=== PATIENT | male | born 1965 | race Caucasian/White ===

== ENCOUNTER 2022-05-17 07:10 | Inpatient (IN) | payer OTHER ==
[2022-05-17 07:27] VITALS: BMI 19.5
[2022-05-17] MEDS ORDERED: VANCOMYCIN/WATER 1,250 MG/250 ML BAG (RESTRICTED TO ID ONLY) IVPB ONE (08:01)
[2022-05-17] MEDS ORDERED: VANCOMYCIN/WATER 1250 MG 1,250 MG/250 ML BAG IVPB ONE (08:28)
[2022-05-17 08:44] LABS: BASO % 0.2 % (0-2.0); EOS % 0.9 % (0-4.5); HEMATOCRIT 29.4 % (35.4-49); HEMOGLOBIN 10.3 GM/dL (11.7-16.9); LYMPH % 15.8 % (8-40); MCH 29.2 pg (25.7-33.7); MCHC 35.2 g/dl (32.0-35.9); MEAN CELL VOLUME 83.1 fl (80-96); MEAN PLT VOLUME 7.7 fl (7.5-11.1); MONO % 13.3 % (3.8-10.2); NEUT % 69.8 % (42.8-82.8); PLATELET COUNT 162 10^3/uL (134-434); RBC 3.54 M/mm3 (4.00-5.60); RDW 14.8 % (11.9-15.9); WHITE BLOOD COUNT 4.4 K/mm3 (4.0-10.0)
[2022-05-17 08:46] LABS: INR 1.15 (0.83-1.09); PROTHROMBIN TIME (PATIENT) 13.3 SEC (9.7-13.0)
[2022-05-17 08:53] LABS: ALBUMIN 3.3 g/dl (3.4-5.0); BLOOD UREA NITROGEN 23.8 mg/dL (7-18); CALCIUM 9.2 mg/dL (8.5-10.1)
[2022-05-17 08:56] LABS: CREATININE 1.2 mg/dL (0.55-1.3)
[2022-05-17 08:58] LABS: BILIRUBIN,TOTAL 0.6 mg/dL (0.2-1); TOT PROT 8.3 g/dl (6.4-8.2)
[2022-05-17] MEDS ORDERED: CLINDAMYCIN 600MG PREMIX IVPB 600 MG/50 ML BAG IVPB ONE ×2 (09:37→10:50)
[2022-05-17] MEDS ORDERED: SODIUM CHLORIDE 1,000 ML IV SCH ×2 (12:30→18:30)
[2022-05-17 15:15] LABS: URINE APPEARANCE CLEAR; URINE COLOR YELLOW
[2022-05-17 15:16] LABS: PH,URINE 5.5 (5.0-8.0); URINE BILIRUBIN NEGATIVE (NEGATIVE); URINE GLUCOSE (UA) NEGATIVE (NEGATIVE); URINE KETONE NEGATIVE (NEGATIVE); URINE LEUK ESTERASE NEGATIVE (NEGATIVE); URINE NITRITE NEGATIVE (NEGATIVE); URINE PROTEIN NEGATIVE (NEGATIVE); URINE UROBILINOGEN 0.2 mg/dL (0.2-1.0)
[2022-05-17] MEDS: CEFAZOLIN 1 GM in DEXTROSE 5%-WATER - 50 ML IVPB SCH (17:32)
[2022-05-17] MEDS: GABAPENTIN 100 MG CAPSULE PO SCH ×2 (17:52→22:17)
[2022-05-17] MEDS: ENOXAPARIN NA (PORCINE) 40 MG/0.4 ML DISP.SYRIN SQ SCH (17:53)
[2022-05-17] MEDS ORDERED: ACETAMINOPHEN 1000 MG/100 ML BAG IVPB PRN (18:28)
[2022-05-17] MEDS ORDERED: oxyCODONE HCL 5 MG TABLET PO PRN (18:41)
[2022-05-17] MEDS ORDERED: MELATONIN 1 MG TABLET PO SCH (22:00)
[2022-05-17] MEDS ORDERED: TAMSULOSIN HCL 0.4 MG CAP PO SCH (22:00)
[2022-05-18] MEDS: CEFAZOLIN 1 GM in DEXTROSE 5%-WATER - 50 ML IVPB SCH ×2 (02:24→09:25)
[2022-05-18] MEDS: ENOXAPARIN NA (PORCINE) 40 MG/0.4 ML DISP.SYRIN SQ SCH (09:25)
[2022-05-18] MEDS: GABAPENTIN 100 MG CAPSULE PO SCH (09:26)
[2022-05-18] MEDS: ALBUTEROL SO4 HFA INHALER IH SCH ×3 (09:39→13:21)
[2022-05-18] MEDS ORDERED: ARIPiprazole 10 MG TABLET PO SCH (10:00)
[2022-05-18 10:13] VITALS: RESP 18
[2022-05-18 10:17] LABS: BASO % 0.3 % (0-2.0); EOS % 1.2 % (0-4.5); HEMATOCRIT 28.2 % (35.4-49); LYMPH % 16.7 % (8-40); MCH 28.9 pg (25.7-33.7); MCHC 35.4 g/dl (32.0-35.9); MEAN CELL VOLUME 81.7 fl (80-96); MEAN PLT VOLUME 8.4 fl (7.5-11.1); MONO % 12.2 % (3.8-10.2); NEUT % 69.6 % (42.8-82.8); PLATELET COUNT 143 10^3/uL (134-434); RBC 3.45 M/mm3 (4.00-5.60); RDW 14.4 % (11.9-15.9); WHITE BLOOD COUNT 3.3 K/mm3 (4.0-10.0)
[2022-05-18 10:35] LABS: BLOOD UREA NITROGEN 17.2 mg/dL (7-18); CALCIUM 8.6 mg/dL (8.5-10.1)
[2022-05-18 10:36] LABS: ALBUMIN 2.8 g/dl (3.4-5.0); MAGNESIUM 1.9 mg/dL (1.8-2.4)
[2022-05-18 10:39] LABS: CREATININE 1.1 mg/dL (0.55-1.3)
[2022-05-18 10:40] LABS: TOT PROT 7.6 g/dl (6.4-8.2)
[2022-05-18 10:41] LABS: BILIRUBIN,TOTAL 0.5 mg/dL (0.2-1)
[2022-05-18 10:43] LABS: PHOSPHOROUS 2.8 mg/dL (2.5-4.9)
[2022-05-18] MEDS ORDERED: busPIRone HCL 5 MG TABLET PO SCH (14:00)
[2022-05-18 14:58] VITALS: BP 92/60; PULSE 58; TEMP 98.1
[2022-05-18] MEDS ORDERED: traZODone HCL 50 MG TABLET (FP) PO SCH (22:00)
== END 2022-05-18 15:05 | disposition left against medical advice (07) | DRG 383 ==
LOC: JER 07:10 → JERBED 12:16 → INTOOBSV 12:16 → UNDOADMOB 12:16 → JERBED 12:26 → J5S 17:06 → OBSVTOIN 05-18 14:39
PROVIDERS: ADMIT Internal Medicine; ATTEND Nurse Practitioner Family
DX: L03.115 Cellulitis of right lower limb (principal); F17.210 Nicotine dependence, cigarettes, uncomplicated; F11.20 Opioid dependence, uncomplicated; M79.661 Pain in right lower leg; R63.0 Anorexia; Z68.1 Body mass index [BMI] 19.9 or less, adult
CPT/HCPCS: 36415; 71045-TC-FY; 73590-TC-RT-FY; 73701-TC-RT; 80053; 81003; 82550; 82962; 83036; 83735; 84100; 85025; 85610; 87040; 87086; 93005; 93010; 93970-TC; 99285-25; C9803-CS; G0378; Q9967; U0003; U0005

== ENCOUNTER 2022-05-24 16:01 | Inpatient (IN) | payer OTHER ==
[2022-05-24] MEDS ORDERED: ACETAMINOPHEN 1000 MG/100 ML BAG IVPB ONE (18:25)
[2022-05-24] MEDS ORDERED: KETOROLAC TROMETHAMINE 15 MG/ML VIAL IVPUSH ONE (18:25)
[2022-05-24] MEDS ORDERED: ceFAZolin 2 GRAM PREMIX BAG IVPB ONE (18:27)
[2022-05-24] MEDS ORDERED: ACETAMINOPHEN INJECTION 100 ML IVPB ONE (18:34)
[2022-05-24] MEDS ORDERED: KETOROLAC TROMETHAMINE 15 MG/ML VIAL ONE (18:35)
[2022-05-24] MEDS ORDERED: ceFAZolin SODIUM 1 GM VIAL ONE (18:35)
[2022-05-24 19:06] LABS: BASO % 0.4 % (0-2.0); EOS % 4.4 % (0-4.5); HEMOGLOBIN 10.4 GM/dL (11.7-16.9); LYMPH % 24.7 % (8-40); MCH 28.4 pg (25.7-33.7); MCHC 34.6 g/dl (32.0-35.9); MEAN PLT VOLUME 7.6 fl (7.5-11.1); MONO % 13.4 % (3.8-10.2); NEUT % 57.1 % (42.8-82.8); PLATELET COUNT 178 10^3/uL (134-434); RBC 3.66 M/mm3 (4.00-5.60); RDW 14.1 % (11.9-15.9); WHITE BLOOD COUNT 3.2 K/mm3 (4.0-10.0)
[2022-05-24 19:27] LABS: CALCIUM 9.3 mg/dL (8.5-10.1)
[2022-05-24 19:28] LABS: ALBUMIN 3.2 g/dl (3.4-5.0); BLOOD UREA NITROGEN 15.2 mg/dL (7-18)
[2022-05-24 19:33] LABS: BILIRUBIN,TOTAL 0.4 mg/dL (0.2-1); TOT PROT 8.5 g/dl (6.4-8.2)
[2022-05-25] MEDS ORDERED: traZODone HCL 100 MG TABLET (FP) PO ONE (00:44)
[2022-05-25] MEDS ORDERED: GABAPENTIN 100 MG CAPSULE PO ONE (00:50)
[2022-05-25] MEDS ORDERED: MELATONIN 1 MG TABLET PO PRN (01:01)
[2022-05-25] MEDS ORDERED: ALBUTEROL SO4 HFA INHALER IH ONE (02:14)
[2022-05-25] MEDS ORDERED: ACETAMINOPHEN 1000 MG/100 ML BAG IVPB PRN (02:19)
[2022-05-25] MEDS: ALBUTEROL SO4 HFA INHALER IH SCH ×4 (02:41→17:52)
[2022-05-25] MEDS ORDERED: KETOROLAC TROMETHAMINE 30 MG/1 ML VIAL IVPUSH PRN (03:00)
[2022-05-25] MEDS ORDERED: ceFAZolin SODIUM 1 GM VIAL ONE (03:32)
[2022-05-25] MEDS ORDERED: CEFAZOLIN 1 GM in DEXTROSE 5%-WATER - 50 ML IVPB SCH (04:00)
[2022-05-25] MEDS ORDERED: PATIENT'S OWN MEDICATION (NON-FORMULARY) (Lactose-Reduced Food [Ensure Liquid] 237 ML Liqu PO SCH (06:00)
[2022-05-25 08:50] LABS: BASO % 0.9 % (0-2.0); EOS % 5.6 % (0-4.5); HEMATOCRIT 28.3 % (35.4-49); HEMOGLOBIN 10.1 GM/dL (11.7-16.9); LYMPH % 20.8 % (8-40); MCH 28.9 pg (25.7-33.7); MCHC 35.7 g/dl (32.0-35.9); MEAN CELL VOLUME 81.1 fl (80-96); MEAN PLT VOLUME 8.1 fl (7.5-11.1); MONO % 12.8 % (3.8-10.2); NEUT % 59.9 % (42.8-82.8); PLATELET COUNT 156 10^3/uL (134-434); RBC 3.49 M/mm3 (4.00-5.60); RDW 14.1 % (11.9-15.9); WHITE BLOOD COUNT 2.4 K/mm3 (4.0-10.0)
[2022-05-25] MEDS: DOCUSATE SODIUM 100 MG CAPSULE (FP) PO PRN (09:00)
[2022-05-25] MEDS: busPIRone HCL 10 MG TABLET (FP) PO SCH ×3 (09:00→22:45)
[2022-05-25 09:26] LABS: BLOOD UREA NITROGEN 17.4 mg/dL (7-18); CALCIUM 9.1 mg/dL (8.5-10.1); MAGNESIUM 2.1 mg/dL (1.8-2.4)
[2022-05-25 09:27] LABS: PHOSPHOROUS 3.2 mg/dL (2.5-4.9)
[2022-05-25 09:28] LABS: CREATININE 0.9 mg/dL (0.55-1.3)
[2022-05-25] MEDS: ENOXAPARIN NA (PORCINE) 40 MG/0.4 ML DISP.SYRIN SQ SCH (09:44)
[2022-05-25] MEDS: GABAPENTIN 100 MG CAPSULE PO SCH ×2 (09:44→22:45)
[2022-05-25] MEDS ORDERED: PATIENT'S OWN MEDICATION (NON-FORMULARY) (Fluoxetine Hcl [Prozac] 40 MG Capsule) PO SCH (10:00)
[2022-05-25 11:03] VITALS: RESP 18
[2022-05-25] MEDS: CEFAZOLIN 1 GM in DEXTROSE 5%-WATER - 50 ML IVPB SCH ×2 (11:55→17:52)
[2022-05-25] MEDS: ARIPiprazole 10 MG TABLET PO SCH (11:55)
[2022-05-25 16:08] VITALS: BMI 19.8
[2022-05-25] MEDS ORDERED: traZODone HCL 100 MG TABLET (FP) PO SCH (22:00)
[2022-05-25 22:27] LABS: PHENCYCLIDINE,URINE NEGATIVE (NEGATIVE); URINE AMPHETAMINES NEGATIVE (NEGATIVE); URINE BENZODIAZEPINES NEGATIVE (NEGATIVE)
[2022-05-25] MEDS ORDERED: traZODone HCL 50 MG TABLET (FP) ONE (22:42)
[2022-05-25 22:50] LABS: COCAINE, UR POSITIVE (NEGATIVE); METHADONE, UR POSITIVE (NEGATIVE); OPIATES, URI POSITIVE (NEGATIVE); URINE BARBITURATES NEGATIVE (NEGATIVE)
[2022-05-26] MEDS: ALBUTEROL SO4 HFA INHALER IH SCH ×2 (01:52→06:36)
[2022-05-26] MEDS: CEFAZOLIN 1 GM in DEXTROSE 5%-WATER - 50 ML IVPB SCH ×2 (01:52→10:48)
[2022-05-26] MEDS: busPIRone HCL 10 MG TABLET (FP) PO SCH (06:30)
[2022-05-26 08:58] LABS: HEMATOCRIT 30.8 % (35.4-49); HEMOGLOBIN 10.8 GM/dL (11.7-16.9); MEAN CELL VOLUME 81.8 fl (80-96); RBC 3.77 M/mm3 (4.00-5.60)
[2022-05-26 08:59] LABS: BASO % 0.6 % (0-2.0); EOS % 2.3 % (0-4.5); LYMPH % 21.1 % (8-40); MCH 28.5 pg (25.7-33.7); MCHC 34.9 g/dl (32.0-35.9); MEAN PLT VOLUME 7.8 fl (7.5-11.1); MONO % 9.3 % (3.8-10.2); NEUT % 66.7 % (42.8-82.8); PLATELET COUNT 188 10^3/uL (134-434); RDW 14.1 % (11.9-15.9)
[2022-05-26 09:32] LABS: ALBUMIN 2.8 g/dl (3.4-5.0); CALCIUM 8.9 mg/dL (8.5-10.1)
[2022-05-26 09:35] LABS: CREATININE 0.9 mg/dL (0.55-1.3)
[2022-05-26 09:37] LABS: BILIRUBIN,TOTAL 0.4 mg/dL (0.2-1)
[2022-05-26] MEDS: ARIPiprazole 10 MG TABLET PO SCH (10:47)
[2022-05-26] MEDS: ENOXAPARIN NA (PORCINE) 40 MG/0.4 ML DISP.SYRIN SQ SCH (10:48)
[2022-05-26] MEDS: DOCUSATE SODIUM 100 MG CAPSULE (FP) PO PRN (10:48)
[2022-05-26] MEDS: GABAPENTIN 100 MG CAPSULE PO SCH (10:48)
[2022-05-26 11:37] VITALS: BP 116/67; PULSE 58; TEMP 98.3
== END 2022-05-26 13:30 | disposition left against medical advice (07) | DRG 383 ==
LOC: JER 16:01 → JERBED 18:28 → J7W 05-25 07:10
PROVIDERS: ADMIT Internal Medicine; ATTEND Family Medicine
DX: L03.115 Cellulitis of right lower limb (principal); F11.20 Opioid dependence, uncomplicated; M54.50 Low back pain, unspecified; G43.909 Migraine, unspecified, not intractable, without status migrainosus; Z86.718 Personal history of other venous thrombosis and embolism; Z91.51 Personal history of suicidal behavior; F43.10 Post-traumatic stress disorder, unspecified; F41.8 Other specified anxiety disorders; F14.10 Cocaine abuse, uncomplicated; D64.9 Anemia, unspecified; E88.09 Other disorders of plasma-protein metabolism, not elsewhere classified
CPT/HCPCS: 0241U-QW; 36415; 80048; 80053; 80307; 82728; 83540; 83550; 83735; 84100; 84443; 85025; 93005; 93010; 93970-TC; 99285-25

== ENCOUNTER 2022-08-23 13:44 | Inpatient (IN) | payer OTHER ==
[2022-08-23 14:48] VITALS: BMI 18.8
[2022-08-23] MEDS ORDERED: FAMOTIDINE 20 MG TABLET PO PRN (14:59)
[2022-08-23] MEDS ORDERED: ALBUTEROL SO4 HFA INHALER IH PRN (14:59)
[2022-08-23] MEDS ORDERED: PATIENT'S OWN MEDICATION (NON-FORMULARY) (Meloxicam [Meloxicam] 7.5 MG Tablet) PO PRN (14:59)
[2022-08-23] MEDS ORDERED: MAGNESIUM HYDROX 2400MG/30ML ORAL SUSPENSION 30 ML CUP PO PRN (15:19)
[2022-08-23] MEDS ORDERED: COLLOIDAL OATMEAL 1 BAR EACH TP PRN (15:19)
[2022-08-23] MEDS ORDERED: BENZOCAINE/MENTHOL (CHLORASEPTIC ) LOZENGE MM PRN (15:19)
[2022-08-23] MEDS ORDERED: IBUPROFEN 400 MG TABLET (FP) PO PRN (15:19)
[2022-08-23] MEDS ORDERED: NALOXONE HCL 0.4 MG/ML VIAL IM PRN (15:19)
[2022-08-23] MEDS ORDERED: AMMONIUM LACTATE 12% LOTION 225 GM BOTTLE TP PRN (15:19)
[2022-08-23] MEDS ORDERED: NALOXONE HCL (KLOXXADO) 8 MG SPRAY NS PRN (15:19)
[2022-08-23] MEDS ORDERED: P-EPHED 60MG/TRIPROLIDI 2.5MG TABLET PO PRN (15:19)
[2022-08-23] MEDS ORDERED: guaiFENesin 600 MG TABLET.ER (FP) PO PRN (15:19)
[2022-08-23] MEDS ORDERED: POLYETHYLENE GLYCOL (HEALTHYLAX) 3350 17 GM PACKET PO PRN (15:19)
[2022-08-23] MEDS ORDERED: BENZONATATE 200 MG CAPSULE PO PRN (15:19)
[2022-08-23] MEDS: MELATONIN 5 MG TABLETS PO SCH (21:16)
[2022-08-23] MEDS: THIAMINE HCL 100 MG TABLET (FP) PO SCH (21:16)
[2022-08-23] MEDS: TAMSULOSIN HCL 0.4 MG CAP PO SCH (21:17)
[2022-08-23] MEDS: LIDOCAINE PATCH REMOVAL MC SCH (21:17)
[2022-08-23] MEDS: NICOTINE POLACRILEX 2 MG GUM BUC PRN (21:18)
[2022-08-24] MEDS ORDERED: methaDONE HCL 40 MG DISPERSABLE TABLET PO SCH (06:30)
[2022-08-24] MEDS ORDERED: GABAPENTIN 100 MG CAPSULE PO STA (09:10)
[2022-08-24] MEDS: PRENATAL VITAMINS W/ FOLIC ACID TABLET (FP) PO SCH (10:19)
[2022-08-24] MEDS: LIDOCAINE 5% TOPICAL PATCH TP SCH (10:20)
[2022-08-24] MEDS: NICOTINE POLACRILEX 2 MG GUM BUC PRN (10:25)
[2022-08-24] MEDS ORDERED: PNEUMOC 20-VAL CONJ-DIP CRM/PF 0.5 ML SYRINGE IM ONE (11:00)
[2022-08-24 12:32] LABS: HEMATOCRIT 35.8 % (35.4-49); HEMOGLOBIN 11.8 GM/dL (11.7-16.9); MCHC 32.9 g/dl (32.0-35.9); MEAN CELL VOLUME 85.1 fl (80-96); MEAN PLT VOLUME 9.2 fl (7.5-11.1); PLATELET COUNT 146 10^3/uL (134-434); RBC 4.21 M/mm3 (4.00-5.60); RDW 15.1 % (11.9-15.9); WHITE BLOOD COUNT 3.8 K/mm3 (4.0-10.0)
[2022-08-24 12:34] LABS: URINE APPEARANCE CLEAR; URINE BILIRUBIN NEGATIVE (NEGATIVE); URINE COLOR YELLOW; URINE GLUCOSE (UA) NEGATIVE (NEGATIVE); URINE KETONE NEGATIVE (NEGATIVE); URINE LEUK ESTERASE NEGATIVE (NEGATIVE); URINE NITRITE NEGATIVE (NEGATIVE); URINE PROTEIN NEGATIVE (NEGATIVE); URINE UROBILINOGEN 0.2 mg/dL (0.2-1.0)
[2022-08-24 12:45] LABS: POTASSIUM 4.5 mmol/L (3.5-5.1)
[2022-08-24 12:58] LABS: ALBUMIN 3.6 g/dl (3.4-5.0); CALCIUM 10.1 mg/dL (8.5-10.1)
[2022-08-24 12:59] LABS: BLOOD UREA NITROGEN 16.1 mg/dL (7-18)
[2022-08-24 13:01] LABS: CREATININE 1.1 mg/dL (0.55-1.3)
[2022-08-24 13:02] LABS: BILIRUBIN,TOTAL 0.3 mg/dL (0.2-1); TOT PROT 9.1 g/dl (6.4-8.2)
[2022-08-24] MEDS: GABAPENTIN 100 MG CAPSULE PO SCH ×2 (13:45→21:25)
[2022-08-24] MEDS: THIAMINE HCL 100 MG TABLET (FP) PO SCH (21:25)
[2022-08-24] MEDS: TAMSULOSIN HCL 0.4 MG CAP PO SCH (21:25)
[2022-08-24] MEDS: MELATONIN 5 MG TABLETS PO SCH (21:25)
[2022-08-24] MEDS: hydrOXYzine PAMOATE 25 MG CAPSULE (FP) PO PRN (21:26)
[2022-08-24] MEDS: LIDOCAINE PATCH REMOVAL MC SCH (21:26)
[2022-08-25] MEDS: GABAPENTIN 100 MG CAPSULE PO SCH ×3 (05:59→21:15)
[2022-08-25] MEDS: IBUPROFEN 600 MG TABLET (FP) PO PRN (06:54)
[2022-08-25] MEDS: PRENATAL VITAMINS W/ FOLIC ACID TABLET (FP) PO SCH (09:37)
[2022-08-25] MEDS: LIDOCAINE 5% TOPICAL PATCH TP SCH (09:37)
[2022-08-25] MEDS: MELATONIN 5 MG TABLETS PO SCH (21:15)
[2022-08-25] MEDS: THIAMINE HCL 100 MG TABLET (FP) PO SCH (21:15)
[2022-08-25] MEDS: LIDOCAINE PATCH REMOVAL MC SCH (21:15)
[2022-08-25] MEDS: TAMSULOSIN HCL 0.4 MG CAP PO SCH (21:15)
[2022-08-26] MEDS: GABAPENTIN 100 MG CAPSULE PO SCH ×3 (05:47→21:07)
[2022-08-26] MEDS: LIDOCAINE 5% TOPICAL PATCH TP SCH (10:09)
[2022-08-26] MEDS: PRENATAL VITAMINS W/ FOLIC ACID TABLET (FP) PO SCH (10:09)
[2022-08-26] MEDS: IBUPROFEN 600 MG TABLET (FP) PO PRN ×2 (10:58→17:20)
[2022-08-26] MEDS: MELATONIN 5 MG TABLETS PO SCH (21:06)
[2022-08-26] MEDS: THIAMINE HCL 100 MG TABLET (FP) PO SCH (21:06)
[2022-08-26] MEDS: LIDOCAINE PATCH REMOVAL MC SCH (21:07)
[2022-08-26] MEDS: TAMSULOSIN HCL 0.4 MG CAP PO SCH (21:07)
[2022-08-26] MEDS: NICOTINE POLACRILEX 2 MG GUM BUC PRN (21:07)
[2022-08-27] MEDS: GABAPENTIN 100 MG CAPSULE PO SCH ×3 (06:09→21:16)
[2022-08-27] MEDS: LIDOCAINE 5% TOPICAL PATCH TP SCH (09:57)
[2022-08-27] MEDS: PRENATAL VITAMINS W/ FOLIC ACID TABLET (FP) PO SCH (09:57)
[2022-08-27] MEDS: IBUPROFEN 600 MG TABLET (FP) PO PRN (09:58)
[2022-08-27] MEDS: NICOTINE POLACRILEX 2 MG GUM BUC PRN (13:03)
[2022-08-27] MEDS: TAMSULOSIN HCL 0.4 MG CAP PO SCH (21:16)
[2022-08-27] MEDS: THIAMINE HCL 100 MG TABLET (FP) PO SCH (21:16)
[2022-08-27] MEDS: MELATONIN 5 MG TABLETS PO SCH (21:16)
[2022-08-27] MEDS: LIDOCAINE PATCH REMOVAL MC SCH (21:17)
[2022-08-28] MEDS: hydrOXYzine PAMOATE 25 MG CAPSULE (FP) PO PRN ×3 (06:45→21:07)
[2022-08-28] MEDS: GABAPENTIN 100 MG CAPSULE PO SCH ×2 (07:06→13:17)
[2022-08-28] MEDS ORDERED: methaDONE HCL 10 MG TABLET PO SCH (07:15)
[2022-08-28] MEDS: LIDOCAINE 5% TOPICAL PATCH TP SCH (10:10)
[2022-08-28] MEDS: PRENATAL VITAMINS W/ FOLIC ACID TABLET (FP) PO SCH (10:10)
[2022-08-28] MEDS: GABAPENTIN 300 MG CAPSULE PO SCH ×2 (14:30→21:04)
[2022-08-28] MEDS: TAMSULOSIN HCL 0.4 MG CAP PO SCH (21:03)
[2022-08-28] MEDS: THIAMINE HCL 100 MG TABLET (FP) PO SCH (21:04)
[2022-08-28] MEDS: MELATONIN 5 MG TABLETS PO SCH (21:04)
[2022-08-28] MEDS: MAG HYDROX/AL HYDROX/SIMETH 30 ML UNIT-DOSE CUP PO PRN (21:04)
[2022-08-28] MEDS: ACETAMINOPHEN 325 MG TABLET (FP) PO PRN (21:05)
[2022-08-28] MEDS: LIDOCAINE PATCH REMOVAL MC SCH (21:07)
[2022-08-28] MEDS ORDERED: QUEtiapine FUMARATE 50 MG TABLET PO SCH (22:00)
[2022-08-28] MEDS ORDERED: QUEtiapine FUMARATE 50 MG TABLET PO PRN (22:00)
[2022-08-29] MEDS: GABAPENTIN 300 MG CAPSULE PO SCH ×3 (06:14→21:09)
[2022-08-29] MEDS: MAG HYDROX/AL HYDROX/SIMETH 30 ML UNIT-DOSE CUP PO PRN ×3 (06:16→21:10)
[2022-08-29] MEDS: PRENATAL VITAMINS W/ FOLIC ACID TABLET (FP) PO SCH (09:48)
[2022-08-29] MEDS: LIDOCAINE 5% TOPICAL PATCH TP SCH (09:48)
[2022-08-29] MEDS: hydrOXYzine PAMOATE 25 MG CAPSULE (FP) PO PRN (14:09)
[2022-08-29] MEDS: TAMSULOSIN HCL 0.4 MG CAP PO SCH (21:08)
[2022-08-29] MEDS: MELATONIN 5 MG TABLETS PO SCH (21:09)
[2022-08-29] MEDS: THIAMINE HCL 100 MG TABLET (FP) PO SCH (21:09)
[2022-08-29] MEDS: LIDOCAINE PATCH REMOVAL MC SCH (21:10)
[2022-08-30] MEDS: GABAPENTIN 300 MG CAPSULE PO SCH ×3 (06:21→21:01)
[2022-08-30] MEDS: hydrOXYzine PAMOATE 25 MG CAPSULE (FP) PO PRN ×3 (06:21→21:02)
[2022-08-30] MEDS: PRENATAL VITAMINS W/ FOLIC ACID TABLET (FP) PO SCH (09:57)
[2022-08-30] MEDS: LIDOCAINE 5% TOPICAL PATCH TP SCH (09:57)
[2022-08-30] MEDS: TAMSULOSIN HCL 0.4 MG CAP PO SCH (21:00)
[2022-08-30] MEDS: THIAMINE HCL 100 MG TABLET (FP) PO SCH (21:01)
[2022-08-30] MEDS: LIDOCAINE PATCH REMOVAL MC SCH (21:01)
[2022-08-30] MEDS: MELATONIN 5 MG TABLETS PO SCH (21:01)
[2022-08-30] MEDS: MAG HYDROX/AL HYDROX/SIMETH 30 ML UNIT-DOSE CUP PO PRN (21:02)
[2022-08-30] MEDS: QUEtiapine FUMARATE 100 MG TABLET (FP) PO PRN (21:16)
[2022-08-31] MEDS: hydrOXYzine PAMOATE 25 MG CAPSULE (FP) PO PRN ×3 (06:06→21:06)
[2022-08-31] MEDS: GABAPENTIN 300 MG CAPSULE PO SCH ×3 (06:06→21:06)
[2022-08-31] MEDS: MAG HYDROX/AL HYDROX/SIMETH 30 ML UNIT-DOSE CUP PO PRN (06:29)
[2022-08-31] MEDS: LIDOCAINE 5% TOPICAL PATCH TP SCH (09:38)
[2022-08-31] MEDS: PRENATAL VITAMINS W/ FOLIC ACID TABLET (FP) PO SCH (09:38)
[2022-08-31] MEDS: TAMSULOSIN HCL 0.4 MG CAP PO SCH (21:06)
[2022-08-31] MEDS: QUEtiapine FUMARATE 100 MG TABLET (FP) PO PRN (21:06)
[2022-08-31] MEDS: THIAMINE HCL 100 MG TABLET (FP) PO SCH (21:07)
[2022-08-31] MEDS: MELATONIN 5 MG TABLETS PO SCH (21:07)
[2022-08-31] MEDS: LIDOCAINE PATCH REMOVAL MC SCH (21:07)
[2022-09-01] MEDS: GABAPENTIN 300 MG CAPSULE PO SCH ×3 (06:53→21:11)
[2022-09-01] MEDS: hydrOXYzine PAMOATE 25 MG CAPSULE (FP) PO PRN ×2 (06:55→21:11)
[2022-09-01] MEDS: PRENATAL VITAMINS W/ FOLIC ACID TABLET (FP) PO SCH (09:57)
[2022-09-01] MEDS: LIDOCAINE 5% TOPICAL PATCH TP SCH (09:58)
[2022-09-01] MEDS: TAMSULOSIN HCL 0.4 MG CAP PO SCH (14:50)
[2022-09-01] MEDS: DABIGATRAN ETEXILATE MESYLATE 150 MG CAPSULE PO SCH (21:11)
[2022-09-01] MEDS: MELATONIN 5 MG TABLETS PO SCH (21:11)
[2022-09-01] MEDS: THIAMINE HCL 100 MG TABLET (FP) PO SCH (21:11)
[2022-09-01] MEDS: LIDOCAINE PATCH REMOVAL MC SCH (22:15)
[2022-09-02] MEDS: QUEtiapine FUMARATE 100 MG TABLET (FP) PO PRN ×2 (02:08→21:09)
[2022-09-02] MEDS: GABAPENTIN 300 MG CAPSULE PO SCH ×3 (06:00→21:08)
[2022-09-02] MEDS: hydrOXYzine PAMOATE 25 MG CAPSULE (FP) PO PRN ×2 (06:03→21:09)
[2022-09-02] MEDS: DABIGATRAN ETEXILATE MESYLATE 150 MG CAPSULE PO SCH ×2 (09:04→21:07)
[2022-09-02] MEDS: PRENATAL VITAMINS W/ FOLIC ACID TABLET (FP) PO SCH (09:04)
[2022-09-02] MEDS: TAMSULOSIN HCL 0.4 MG CAP PO SCH (09:04)
[2022-09-02] MEDS: LIDOCAINE 5% TOPICAL PATCH TP SCH (09:05)
[2022-09-02] MEDS: MAG HYDROX/AL HYDROX/SIMETH 30 ML UNIT-DOSE CUP PO PRN (09:06)
[2022-09-02] MEDS: THIAMINE HCL 100 MG TABLET (FP) PO SCH (21:07)
[2022-09-02] MEDS: MELATONIN 5 MG TABLETS PO SCH (21:08)
[2022-09-02] MEDS: LIDOCAINE PATCH REMOVAL MC SCH (21:09)
[2022-09-03] MEDS: GABAPENTIN 300 MG CAPSULE PO SCH ×3 (07:12→21:29)
[2022-09-03] MEDS: hydrOXYzine PAMOATE 25 MG CAPSULE (FP) PO PRN ×3 (07:12→21:30)
[2022-09-03] MEDS: DABIGATRAN ETEXILATE MESYLATE 150 MG CAPSULE PO SCH ×2 (09:11→21:29)
[2022-09-03] MEDS: TAMSULOSIN HCL 0.4 MG CAP PO SCH (09:11)
[2022-09-03] MEDS: PRENATAL VITAMINS W/ FOLIC ACID TABLET (FP) PO SCH (09:11)
[2022-09-03] MEDS: LIDOCAINE 5% TOPICAL PATCH TP SCH (09:12)
[2022-09-03] MEDS: ACETAMINOPHEN 325 MG TABLET (FP) PO PRN (11:53)
[2022-09-03] MEDS: THIAMINE HCL 100 MG TABLET (FP) PO SCH (21:29)
[2022-09-03] MEDS: MELATONIN 5 MG TABLETS PO SCH (21:29)
[2022-09-03] MEDS: QUEtiapine FUMARATE 100 MG TABLET (FP) PO PRN (21:29)
[2022-09-03] MEDS: LIDOCAINE PATCH REMOVAL MC SCH (21:29)
[2022-09-04] MEDS: GABAPENTIN 300 MG CAPSULE PO SCH ×3 (06:28→21:06)
[2022-09-04] MEDS: hydrOXYzine PAMOATE 25 MG CAPSULE (FP) PO PRN ×3 (06:28→21:05)
[2022-09-04] MEDS: LIDOCAINE 5% TOPICAL PATCH TP SCH (10:01)
[2022-09-04] MEDS: DABIGATRAN ETEXILATE MESYLATE 150 MG CAPSULE PO SCH ×2 (10:01→21:05)
[2022-09-04] MEDS: TAMSULOSIN HCL 0.4 MG CAP PO SCH (10:01)
[2022-09-04] MEDS: PRENATAL VITAMINS W/ FOLIC ACID TABLET (FP) PO SCH (10:01)
[2022-09-04] MEDS: NICOTINE 10 MG CARTRIDGE (INHALER) IH SCH (10:24)
[2022-09-04] MEDS: THIAMINE HCL 100 MG TABLET (FP) PO SCH (21:05)
[2022-09-04] MEDS: MELATONIN 5 MG TABLETS PO SCH (21:05)
[2022-09-04] MEDS: LIDOCAINE PATCH REMOVAL MC SCH (21:06)
[2022-09-04] MEDS: QUEtiapine FUMARATE 100 MG TABLET (FP) PO PRN (21:06)
[2022-09-05] MEDS: GABAPENTIN 300 MG CAPSULE PO SCH ×3 (05:56→21:06)
[2022-09-05] MEDS: hydrOXYzine PAMOATE 25 MG CAPSULE (FP) PO PRN ×2 (05:58→21:07)
[2022-09-05] MEDS: TAMSULOSIN HCL 0.4 MG CAP PO SCH (07:32)
[2022-09-05] MEDS: DABIGATRAN ETEXILATE MESYLATE 150 MG CAPSULE PO SCH ×2 (09:40→21:06)
[2022-09-05] MEDS: PRENATAL VITAMINS W/ FOLIC ACID TABLET (FP) PO SCH (09:40)
[2022-09-05] MEDS: NICOTINE 10 MG CARTRIDGE (INHALER) IH SCH (09:40)
[2022-09-05] MEDS: LIDOCAINE 5% TOPICAL PATCH TP SCH (09:41)
[2022-09-05] MEDS: MAG HYDROX/AL HYDROX/SIMETH 30 ML UNIT-DOSE CUP PO PRN (09:45)
[2022-09-05] MEDS: LOPERAMIDE HCL 2 MG CAPSULE PO PRN (18:03)
[2022-09-05] MEDS: LIDOCAINE PATCH REMOVAL MC SCH (21:05)
[2022-09-05] MEDS: THIAMINE HCL 100 MG TABLET (FP) PO SCH (21:06)
[2022-09-05] MEDS: MELATONIN 5 MG TABLETS PO SCH (21:06)
[2022-09-05] MEDS: QUEtiapine FUMARATE 100 MG TABLET (FP) PO PRN (21:07)
[2022-09-06] MEDS: GABAPENTIN 300 MG CAPSULE PO SCH ×3 (06:05→21:12)
[2022-09-06] MEDS: hydrOXYzine PAMOATE 25 MG CAPSULE (FP) PO PRN ×3 (06:06→21:12)
[2022-09-06] MEDS: PRENATAL VITAMINS W/ FOLIC ACID TABLET (FP) PO SCH (09:07)
[2022-09-06] MEDS: DABIGATRAN ETEXILATE MESYLATE 150 MG CAPSULE PO SCH ×2 (09:07→21:12)
[2022-09-06] MEDS: TAMSULOSIN HCL 0.4 MG CAP PO SCH (09:07)
[2022-09-06] MEDS: LIDOCAINE 5% TOPICAL PATCH TP SCH (09:08)
[2022-09-06] MEDS: NICOTINE 10 MG CARTRIDGE (INHALER) IH SCH (09:08)
[2022-09-06] MEDS: LOPERAMIDE HCL 2 MG CAPSULE PO PRN (10:27)
[2022-09-06] MEDS: THIAMINE HCL 100 MG TABLET (FP) PO SCH (21:12)
[2022-09-06] MEDS: LIDOCAINE PATCH REMOVAL MC SCH (21:12)
[2022-09-06] MEDS: QUEtiapine FUMARATE 100 MG TABLET (FP) PO PRN (21:12)
[2022-09-06] MEDS: MELATONIN 5 MG TABLETS PO SCH (21:12)
[2022-09-07] MEDS: GABAPENTIN 300 MG CAPSULE PO SCH ×3 (06:21→21:35)
[2022-09-07] MEDS: hydrOXYzine PAMOATE 25 MG CAPSULE (FP) PO PRN ×2 (06:21→13:20)
[2022-09-07] MEDS: LOPERAMIDE HCL 2 MG CAPSULE PO PRN (06:23)
[2022-09-07] MEDS: NICOTINE 10 MG CARTRIDGE (INHALER) IH SCH (09:09)
[2022-09-07] MEDS: LIDOCAINE 5% TOPICAL PATCH TP SCH (09:09)
[2022-09-07] MEDS: PRENATAL VITAMINS W/ FOLIC ACID TABLET (FP) PO SCH (09:09)
[2022-09-07] MEDS: DABIGATRAN ETEXILATE MESYLATE 150 MG CAPSULE PO SCH ×2 (09:09→21:34)
[2022-09-07] MEDS: TAMSULOSIN HCL 0.4 MG CAP PO SCH (09:09)
[2022-09-07] MEDS: MELATONIN 5 MG TABLETS PO SCH (21:35)
[2022-09-07] MEDS: THIAMINE HCL 100 MG TABLET (FP) PO SCH (21:35)
[2022-09-07] MEDS: QUEtiapine FUMARATE 100 MG TABLET (FP) PO PRN (21:35)
[2022-09-07] MEDS: LIDOCAINE PATCH REMOVAL MC SCH (21:36)
[2022-09-08] MEDS: GABAPENTIN 300 MG CAPSULE PO SCH ×3 (06:12→21:19)
[2022-09-08] MEDS: hydrOXYzine PAMOATE 25 MG CAPSULE (FP) PO PRN ×2 (06:17→13:31)
[2022-09-08] MEDS: TAMSULOSIN HCL 0.4 MG CAP PO SCH (07:54)
[2022-09-08] MEDS: LOPERAMIDE HCL 2 MG CAPSULE PO PRN (08:19)
[2022-09-08] MEDS: NICOTINE 10 MG CARTRIDGE (INHALER) IH SCH (09:29)
[2022-09-08] MEDS: PRENATAL VITAMINS W/ FOLIC ACID TABLET (FP) PO SCH (09:29)
[2022-09-08] MEDS: LIDOCAINE 5% TOPICAL PATCH TP SCH (09:29)
[2022-09-08] MEDS: DABIGATRAN ETEXILATE MESYLATE 150 MG CAPSULE PO SCH ×2 (09:29→21:18)
[2022-09-08] MEDS ORDERED: DICYCLOMINE HCL 10 MG CAPSULE PO PRN (17:51)
[2022-09-08] MEDS ORDERED: LOPERAMIDE HCL 2 MG CAPSULE PO PRN (17:51)
[2022-09-08] MEDS: QUEtiapine FUMARATE 100 MG TABLET (FP) PO PRN (21:18)
[2022-09-08] MEDS: LIDOCAINE PATCH REMOVAL MC SCH (21:18)
[2022-09-08] MEDS: RIFAXIMIN 550 MG TABLET PO SCH (21:19)
[2022-09-08] MEDS: MELATONIN 5 MG TABLETS PO SCH (21:19)
[2022-09-08] MEDS: THIAMINE HCL 100 MG TABLET (FP) PO SCH (21:19)
[2022-09-09] MEDS ORDERED: methaDONE HCL 40 MG DISPERSABLE TABLET PO SCH (06:00)
[2022-09-09] MEDS: GABAPENTIN 300 MG CAPSULE PO SCH ×3 (06:28→21:15)
[2022-09-09] MEDS: TAMSULOSIN HCL 0.4 MG CAP PO SCH (09:04)
[2022-09-09] MEDS: DABIGATRAN ETEXILATE MESYLATE 150 MG CAPSULE PO SCH ×2 (09:04→21:15)
[2022-09-09] MEDS: NICOTINE 10 MG CARTRIDGE (INHALER) IH SCH (09:04)
[2022-09-09] MEDS: RIFAXIMIN 550 MG TABLET PO SCH ×2 (09:04→21:15)
[2022-09-09] MEDS: PRENATAL VITAMINS W/ FOLIC ACID TABLET (FP) PO SCH (09:05)
[2022-09-09] MEDS: LIDOCAINE 5% TOPICAL PATCH TP SCH (09:05)
[2022-09-09 10:12] LABS: POTASSIUM 5.1 mmol/L (3.5-5.1)
[2022-09-09 10:21] LABS: BASO % 0.4 % (0-2.0); EOS % 6.6 % (0-4.5); HEMATOCRIT 36.9 % (35.4-49); HEMOGLOBIN 12.7 GM/dL (11.7-16.9); LYMPH % 34.6 % (8-40); MCH 29.4 pg (25.7-33.7); MCHC 34.4 g/dl (32.0-35.9); MEAN CELL VOLUME 85.4 fl (80-96); MEAN PLT VOLUME 8.7 fl (7.5-11.1); MONO % 14.9 % (3.8-10.2); NEUT % 43.5 % (42.8-82.8); PLATELET COUNT 152 10^3/uL (134-434); RBC 4.32 M/mm3 (4.00-5.60); RDW 14.5 % (11.9-15.9)
[2022-09-09 10:24] LABS: CALCIUM 10.2 mg/dL (8.5-10.1)
[2022-09-09 10:25] LABS: ALBUMIN 3.6 g/dl (3.4-5.0); BLOOD UREA NITROGEN 21.9 mg/dL (7-18)
[2022-09-09 10:28] LABS: CREATININE 1.2 mg/dL (0.55-1.3)
[2022-09-09 10:29] LABS: BILIRUBIN,TOTAL 0.4 mg/dL (0.2-1); TOT PROT 8.6 g/dl (6.4-8.2)
[2022-09-09] MEDS: ACETAMINOPHEN 325 MG TABLET (FP) PO PRN ×2 (10:57→22:07)
[2022-09-09] MEDS: MELATONIN 5 MG TABLETS PO SCH (21:14)
[2022-09-09] MEDS: THIAMINE HCL 100 MG TABLET (FP) PO SCH (21:14)
[2022-09-09] MEDS: LIDOCAINE PATCH REMOVAL MC SCH (21:15)
[2022-09-09] MEDS: QUEtiapine FUMARATE 100 MG TABLET (FP) PO PRN (21:16)
[2022-09-10] MEDS: GABAPENTIN 300 MG CAPSULE PO SCH ×3 (06:10→21:34)
[2022-09-10] MEDS: ACETAMINOPHEN 325 MG TABLET (FP) PO PRN (06:13)
[2022-09-10] MEDS: TAMSULOSIN HCL 0.4 MG CAP PO SCH (09:22)
[2022-09-10] MEDS: LIDOCAINE 5% TOPICAL PATCH TP SCH (09:22)
[2022-09-10] MEDS: RIFAXIMIN 550 MG TABLET PO SCH ×2 (09:22→21:34)
[2022-09-10] MEDS: PRENATAL VITAMINS W/ FOLIC ACID TABLET (FP) PO SCH (09:22)
[2022-09-10] MEDS: DABIGATRAN ETEXILATE MESYLATE 150 MG CAPSULE PO SCH ×2 (09:22→21:34)
[2022-09-10] MEDS: NICOTINE 10 MG CARTRIDGE (INHALER) IH SCH (09:22)
[2022-09-10] MEDS: LIDOCAINE PATCH REMOVAL MC SCH (21:34)
[2022-09-10] MEDS: MELATONIN 5 MG TABLETS PO SCH (21:34)
[2022-09-10] MEDS: THIAMINE HCL 100 MG TABLET (FP) PO SCH (21:35)
[2022-09-10] MEDS: QUEtiapine FUMARATE 100 MG TABLET (FP) PO PRN (21:35)
[2022-09-11] MEDS: GABAPENTIN 300 MG CAPSULE PO SCH ×3 (06:08→21:06)
[2022-09-11] MEDS: LIDOCAINE 5% TOPICAL PATCH TP SCH (09:14)
[2022-09-11] MEDS: TAMSULOSIN HCL 0.4 MG CAP PO SCH (09:14)
[2022-09-11] MEDS: NICOTINE 10 MG CARTRIDGE (INHALER) IH SCH (09:15)
[2022-09-11] MEDS: PRENATAL VITAMINS W/ FOLIC ACID TABLET (FP) PO SCH (09:15)
[2022-09-11] MEDS: RIFAXIMIN 550 MG TABLET PO SCH ×2 (09:15→21:06)
[2022-09-11] MEDS: DABIGATRAN ETEXILATE MESYLATE 150 MG CAPSULE PO SCH ×2 (09:16→21:05)
[2022-09-11] MEDS: ACETAMINOPHEN 325 MG TABLET (FP) PO PRN ×2 (09:18→15:45)
[2022-09-11] MEDS: LIDOCAINE PATCH REMOVAL MC SCH (21:05)
[2022-09-11] MEDS: THIAMINE HCL 100 MG TABLET (FP) PO SCH (21:05)
[2022-09-11] MEDS: MELATONIN 5 MG TABLETS PO SCH (21:05)
[2022-09-11] MEDS: QUEtiapine FUMARATE 100 MG TABLET (FP) PO PRN (21:06)
[2022-09-12] MEDS: GABAPENTIN 300 MG CAPSULE PO SCH ×3 (05:52→21:09)
[2022-09-12] MEDS: PRENATAL VITAMINS W/ FOLIC ACID TABLET (FP) PO SCH (09:06)
[2022-09-12] MEDS: NICOTINE 10 MG CARTRIDGE (INHALER) IH SCH (09:07)
[2022-09-12] MEDS: LIDOCAINE 5% TOPICAL PATCH TP SCH (09:07)
[2022-09-12] MEDS: RIFAXIMIN 550 MG TABLET PO SCH ×2 (09:07→21:11)
[2022-09-12] MEDS: DABIGATRAN ETEXILATE MESYLATE 150 MG CAPSULE PO SCH ×2 (09:07→21:09)
[2022-09-12] MEDS: TAMSULOSIN HCL 0.4 MG CAP PO SCH (09:07)
[2022-09-12] MEDS: THIAMINE HCL 100 MG TABLET (FP) PO SCH (21:09)
[2022-09-12] MEDS: MELATONIN 5 MG TABLETS PO SCH (21:09)
[2022-09-12] MEDS: LIDOCAINE PATCH REMOVAL MC SCH (21:10)
[2022-09-12] MEDS: QUEtiapine FUMARATE 100 MG TABLET (FP) PO PRN (21:10)
[2022-09-13] MEDS: GABAPENTIN 300 MG CAPSULE PO SCH ×3 (06:18→21:11)
[2022-09-13] MEDS: TAMSULOSIN HCL 0.4 MG CAP PO SCH (08:10)
[2022-09-13] MEDS: RIFAXIMIN 550 MG TABLET PO SCH ×2 (09:51→21:11)
[2022-09-13] MEDS: PRENATAL VITAMINS W/ FOLIC ACID TABLET (FP) PO SCH (09:51)
[2022-09-13] MEDS: DABIGATRAN ETEXILATE MESYLATE 150 MG CAPSULE PO SCH ×2 (09:52→21:12)
[2022-09-13] MEDS: LIDOCAINE 5% TOPICAL PATCH TP SCH (09:52)
[2022-09-13] MEDS: NICOTINE 10 MG CARTRIDGE (INHALER) IH SCH (09:52)
[2022-09-13] MEDS: ACETAMINOPHEN 325 MG TABLET (FP) PO PRN (17:06)
[2022-09-13] MEDS: LIDOCAINE PATCH REMOVAL MC SCH (21:11)
[2022-09-13] MEDS: QUEtiapine FUMARATE 100 MG TABLET (FP) PO PRN (21:12)
[2022-09-13] MEDS: MELATONIN 5 MG TABLETS PO SCH (21:12)
[2022-09-13] MEDS: THIAMINE HCL 100 MG TABLET (FP) PO SCH (21:12)
[2022-09-14] MEDS: methaDONE HCL 40 MG DISPERSABLE TABLET PO SCH (06:16)
[2022-09-14] MEDS: GABAPENTIN 300 MG CAPSULE PO SCH ×3 (06:16→21:21)
[2022-09-14] MEDS: NICOTINE POLACRILEX 2 MG GUM BUC PRN (06:19)
[2022-09-14] MEDS: TAMSULOSIN HCL 0.4 MG CAP PO SCH (09:01)
[2022-09-14] MEDS: RIFAXIMIN 550 MG TABLET PO SCH ×2 (09:52→21:21)
[2022-09-14] MEDS: NICOTINE 10 MG CARTRIDGE (INHALER) IH SCH (09:52)
[2022-09-14] MEDS: PRENATAL VITAMINS W/ FOLIC ACID TABLET (FP) PO SCH (09:52)
[2022-09-14] MEDS: LIDOCAINE 5% TOPICAL PATCH TP SCH (09:53)
[2022-09-14] MEDS: DABIGATRAN ETEXILATE MESYLATE 150 MG CAPSULE PO SCH ×2 (09:54→21:22)
[2022-09-14] MEDS: THIAMINE HCL 100 MG TABLET (FP) PO SCH (21:22)
[2022-09-14] MEDS: MELATONIN 5 MG TABLETS PO SCH (21:22)
[2022-09-14] MEDS: QUEtiapine FUMARATE 100 MG TABLET (FP) PO PRN (21:22)
[2022-09-14] MEDS: LIDOCAINE PATCH REMOVAL MC SCH (21:23)
[2022-09-15] MEDS: methaDONE HCL 40 MG DISPERSABLE TABLET PO SCH (06:14)
[2022-09-15] MEDS: GABAPENTIN 300 MG CAPSULE PO SCH (06:14)
[2022-09-15 07:59] VITALS: BP 136/86; PULSE 85; RESP 17; TEMP 98.6
[2022-09-15] MEDS: TAMSULOSIN HCL 0.4 MG CAP PO SCH (08:32)
== END 2022-09-15 09:18 | disposition home or self-care (01) | DRG 772 ==
LOC: YASAS 13:44 → Y3W 19:08
PROVIDERS: ADMIT Allergy & Immunology; ATTEND Psychiatry & Neurology Pain Medicine
PROC: HZ42ZZZ Group Counseling for Substance Abuse Treatment, Cognitive-Behavioral (ICD-10-PCS; principal; 2022-08-23)
DX: F11.20 Opioid dependence, uncomplicated (principal); F14.20 Cocaine dependence, uncomplicated; F12.20 Cannabis dependence, uncomplicated; F17.210 Nicotine dependence, cigarettes, uncomplicated; F19.282 Other psychoactive substance dependence with psychoactive substance-induced sleep disorder; Z21 Asymptomatic human immunodeficiency virus [HIV] infection status; B35.3 Tinea pedis; B35.1 Tinea unguium; K21.9 Gastro-esophageal reflux disease without esophagitis; M19.90 Unspecified osteoarthritis, unspecified site; N40.1 Benign prostatic hyperplasia with lower urinary tract symptoms; R33.8 Other retention of urine; R63.4 Abnormal weight loss; Z68.1 Body mass index [BMI] 19.9 or less, adult; Z20.822 Contact with and (suspected) exposure to COVID-19; R19.7 Diarrhea, unspecified; Z86.19 Personal history of other infectious and parasitic diseases
CPT/HCPCS: 36415; 80053; 81003; 85025; 85027; 86780; 87522; 87635; 87811

== ENCOUNTER 2022-10-25 09:22 | Inpatient (IN) | payer OTHER ==
[2022-10-25 10:10] VITALS: BMI 22.6
[2022-10-25] MEDS ORDERED: IBUPROFEN 400 MG TABLET (FP) PO PRN (10:30)
[2022-10-25] MEDS ORDERED: AMMONIUM LACTATE 12% LOTION 225 GM BOTTLE TP PRN (10:30)
[2022-10-25] MEDS ORDERED: NALOXONE HCL (KLOXXADO) 8 MG SPRAY NS PRN (10:30)
[2022-10-25] MEDS ORDERED: COLLOIDAL OATMEAL 1 BAR EACH TP PRN (10:30)
[2022-10-25] MEDS ORDERED: BENZONATATE 200 MG CAPSULE PO PRN (10:30)
[2022-10-25] MEDS ORDERED: hydrOXYzine PAMOATE 25 MG CAPSULE (FP) PO PRN (10:30)
[2022-10-25] MEDS ORDERED: MAG HYDROX/AL HYDROX/SIMETH 30 ML UNIT-DOSE CUP PO PRN (10:30)
[2022-10-25] MEDS ORDERED: ACETAMINOPHEN 325 MG TABLET (FP) PO PRN (10:30)
[2022-10-25] MEDS ORDERED: IBUPROFEN 600 MG TABLET (FP) PO PRN (10:30)
[2022-10-25] MEDS ORDERED: BENZOCAINE/MENTHOL (CHLORASEPTIC ) LOZENGE MM PRN (10:30)
[2022-10-25] MEDS ORDERED: NALOXONE HCL 0.4 MG/ML VIAL IM PRN (10:30)
[2022-10-25] MEDS ORDERED: MAGNESIUM HYDROX 2400MG/30ML ORAL SUSPENSION 30 ML CUP PO PRN (10:30)
[2022-10-25] MEDS ORDERED: LOPERAMIDE HCL 2 MG CAPSULE PO PRN (10:30)
[2022-10-25] MEDS ORDERED: guaiFENesin 600 MG TABLET.ER (FP) PO PRN (10:30)
[2022-10-25] MEDS ORDERED: POLYETHYLENE GLYCOL (HEALTHYLAX) 3350 17 GM PACKET PO PRN (10:30)
[2022-10-25] MEDS ORDERED: NICOTINE 14 MG/24 HOURS TOPICAL PATCH TD ONE (11:11)
[2022-10-25] MEDS ORDERED: PRENATAL VITAMINS W/ FOLIC ACID TABLET (FP) PO ONE (11:11)
[2022-10-25] MEDS: PRENATAL VITAMINS W/ FOLIC ACID TABLET (FP) PO SCH (11:17)
[2022-10-25] MEDS: NICOTINE 14 MG/24 HOURS TOPICAL PATCH TD SCH (11:17)
[2022-10-25] MEDS: GABAPENTIN 300 MG CAPSULE PO SCH ×2 (15:45→22:23)
[2022-10-25] MEDS ORDERED: TUBERCULIN PPD 5 TU/0.1ML VIAL ID ONE ×2 (17:03→22:36)
[2022-10-25 17:17] LABS: POTASSIUM 4.8 mmol/L (3.5-5.1)
[2022-10-25 17:19] LABS: HEMATOCRIT 33.3 % (35.4-49); MCH 28.7 pg (25.7-33.7); MCHC 33.1 g/dl (32.0-35.9); MEAN CELL VOLUME 86.5 fl (80-96); MEAN PLT VOLUME 8.5 fl (7.5-11.1); PLATELET COUNT 208 10^3/uL (134-434); RBC 3.85 M/mm3 (4.00-5.60); RDW 14.9 % (11.9-15.9); WHITE BLOOD COUNT 7.2 K/mm3 (4.0-10.0)
[2022-10-25 17:21] LABS: ALBUMIN 3.8 g/dl (3.4-5.0)
[2022-10-25 17:22] LABS: BLOOD UREA NITROGEN 18.6 mg/dL (7-18); CALCIUM 8.7 mg/dL (8.5-10.1)
[2022-10-25 17:25] LABS: CREATININE 1.3 mg/dL (0.55-1.3)
[2022-10-25 17:27] LABS: BILIRUBIN,TOTAL 0.4 mg/dL (0.2-1); TOT PROT 8.3 g/dl (6.4-8.2)
[2022-10-25 17:52] LABS: SYPHILIS W/ RPR CONF NON-REACTIVE (NONREACTIVE)
[2022-10-25] MEDS ORDERED: QUEtiapine FUMARATE 100 MG TABLET (FP) PO SCH (22:00)
[2022-10-25] MEDS ORDERED: MELATONIN 5 MG TABLETS PO SCH (22:00)
[2022-10-25] MEDS ORDERED: THIAMINE HCL 100 MG TABLET (FP) PO SCH (22:00)
[2022-10-26] MEDS: GABAPENTIN 300 MG CAPSULE PO SCH ×2 (06:10→13:12)
[2022-10-26] MEDS ORDERED: methaDONE HCL 40 MG DISPERSABLE TABLET PO SCH (06:45)
[2022-10-26] MEDS: PRENATAL VITAMINS W/ FOLIC ACID TABLET (FP) PO SCH (09:15)
[2022-10-26] MEDS: NICOTINE 14 MG/24 HOURS TOPICAL PATCH TD SCH (09:15)
[2022-10-26 12:27] LABS: URINE APPEARANCE CLEAR; URINE BILIRUBIN NEGATIVE (NEGATIVE); URINE COLOR YELLOW; URINE GLUCOSE (UA) NEGATIVE (NEGATIVE); URINE KETONE NEGATIVE (NEGATIVE); URINE LEUK ESTERASE NEGATIVE (NEGATIVE); URINE NITRITE NEGATIVE (NEGATIVE); URINE PROTEIN NEGATIVE (NEGATIVE); URINE UROBILINOGEN 0.2 mg/dL (0.2-1.0)
[2022-10-26 17:26] VITALS: BP 154/95; PULSE 86; RESP 18; TEMP 97.4
== END 2022-10-26 17:30 | disposition left against medical advice (07) | DRG 770 ==
LOC: YASAS 09:22 → Y3E 10:46
PROVIDERS: ADMIT Allergy & Immunology; ATTEND Psychiatry & Neurology Pain Medicine
PROC: HZ42ZZZ Group Counseling for Substance Abuse Treatment, Cognitive-Behavioral (ICD-10-PCS; principal; 2022-10-25)
DX: F11.20 Opioid dependence, uncomplicated (principal); F14.20 Cocaine dependence, uncomplicated; F12.20 Cannabis dependence, uncomplicated; F17.210 Nicotine dependence, cigarettes, uncomplicated; F19.282 Other psychoactive substance dependence with psychoactive substance-induced sleep disorder; K21.9 Gastro-esophageal reflux disease without esophagitis; M15.9 Polyosteoarthritis, unspecified; Z86.59 Personal history of other mental and behavioral disorders
CPT/HCPCS: 36415; 80053; 81003; 85027; 86780; 86803; 87522; 87635; 87811

== ENCOUNTER 2022-12-01 21:42 | Inpatient (IN) | payer OTHER ==
[2022-12-01 22:41] VITALS: BMI 20.5
[2022-12-01] MEDS ORDERED: ALBUTEROL SO4 HFA INHALER IH PRN (23:26)
[2022-12-01] MEDS ORDERED: FAMOTIDINE 20 MG TABLET PO PRN (23:26)
[2022-12-01] MEDS ORDERED: NALOXONE HCL 0.4 MG/ML VIAL IM PRN (23:39)
[2022-12-01] MEDS ORDERED: POLYETHYLENE GLYCOL (HEALTHYLAX) 3350 17 GM PACKET PO PRN (23:39)
[2022-12-01] MEDS ORDERED: MAGNESIUM HYDROX 2400MG/30ML ORAL SUSPENSION 30 ML CUP PO PRN (23:39)
[2022-12-01] MEDS ORDERED: NALOXONE HCL (KLOXXADO) 8 MG SPRAY NS PRN (23:39)
[2022-12-01] MEDS ORDERED: hydrOXYzine PAMOATE 25 MG CAPSULE (FP) PO PRN (23:39)
[2022-12-01] MEDS ORDERED: BENZONATATE 200 MG CAPSULE PO PRN (23:39)
[2022-12-01] MEDS ORDERED: P-EPHED 60MG/TRIPROLIDI 2.5MG TABLET PO PRN (23:39)
[2022-12-01] MEDS ORDERED: guaiFENesin 600 MG TABLET.ER (FP) PO PRN (23:39)
[2022-12-01] MEDS ORDERED: BENZOCAINE/MENTHOL (CHLORASEPTIC ) LOZENGE MM PRN (23:39)
[2022-12-01] MEDS ORDERED: ACETAMINOPHEN 325 MG TABLET (FP) PO PRN (23:41)
[2022-12-02] MEDS: MELATONIN 5 MG TABLETS PO SCH ×2 (03:31→22:08)
[2022-12-02] MEDS: DABIGATRAN ETEXILATE MESYLATE 150 MG CAPSULE PO SCH ×3 (03:32→22:08)
[2022-12-02] MEDS: methaDONE HCL 40 MG DISPERSABLE TABLET PO SCH (08:58)
[2022-12-02] MEDS: PRENATAL VITAMINS W/ FOLIC ACID TABLET (FP) PO SCH (10:15)
[2022-12-02] MEDS: TAMSULOSIN HCL 0.4 MG CAP PO SCH (10:15)
[2022-12-02 12:18] LABS: HEMATOCRIT 30.4 % (35.4-49); HEMOGLOBIN 10.2 GM/dL (11.7-16.9); MCH 28.5 pg (25.7-33.7); MCHC 33.7 g/dl (32.0-35.9); MEAN CELL VOLUME 84.7 fl (80-96); MEAN PLT VOLUME 7.9 fl (7.5-11.1); PLATELET COUNT 183 10^3/uL (134-434); RDW 14.7 % (11.9-15.9)
[2022-12-02 12:25] LABS: PH,URINE 5.5 (5.0-8.0); URINE APPEARANCE CLEAR; URINE BILIRUBIN NEGATIVE (NEGATIVE); URINE COLOR DK YELLOW; URINE GLUCOSE (UA) NEGATIVE (NEGATIVE); URINE KETONE NEGATIVE (NEGATIVE); URINE LEUK ESTERASE NEGATIVE (NEGATIVE); URINE NITRITE NEGATIVE (NEGATIVE); URINE PROTEIN NEGATIVE (NEGATIVE); URINE UROBILINOGEN 0.2 mg/dL (0.2-1.0)
[2022-12-02 12:25] LABS: POTASSIUM 3.6 mmol/L (3.5-5.1)
[2022-12-02 12:28] LABS: ALBUMIN 3.2 g/dl (3.4-5.0); BLOOD UREA NITROGEN 18.8 mg/dL (7-18); CALCIUM 8.9 mg/dL (8.5-10.1)
[2022-12-02 12:30] LABS: CREATININE 1.2 mg/dL (0.55-1.3)
[2022-12-02 12:32] LABS: BILIRUBIN,TOTAL 0.4 mg/dL (0.2-1); TOT PROT 8.1 g/dl (6.4-8.2)
[2022-12-02 12:53] LABS: SYPHILIS W/ RPR CONF NON-REACTIVE (NONREACTIVE)
[2022-12-02] MEDS: GABAPENTIN 100 MG CAPSULE PO SCH ×2 (15:00→22:08)
[2022-12-02] MEDS ORDERED: QUEtiapine FUMARATE 50 MG TABLET PO SCH (22:00)
[2022-12-02] MEDS: THIAMINE HCL 100 MG TABLET (FP) PO SCH (22:09)
[2022-12-03] MEDS: methaDONE HCL 40 MG DISPERSABLE TABLET PO SCH (06:28)
[2022-12-03] MEDS: GABAPENTIN 100 MG CAPSULE PO SCH ×3 (06:28→21:02)
[2022-12-03] MEDS: PRENATAL VITAMINS W/ FOLIC ACID TABLET (FP) PO SCH (10:03)
[2022-12-03] MEDS: DABIGATRAN ETEXILATE MESYLATE 150 MG CAPSULE PO SCH ×2 (10:04→21:01)
[2022-12-03] MEDS: TAMSULOSIN HCL 0.4 MG CAP PO SCH (10:04)
[2022-12-03] MEDS: THIAMINE HCL 100 MG TABLET (FP) PO SCH (21:01)
[2022-12-03] MEDS: MELATONIN 5 MG TABLETS PO SCH (21:01)
[2022-12-04] MEDS: GABAPENTIN 100 MG CAPSULE PO SCH ×2 (05:59→13:19)
[2022-12-04] MEDS: methaDONE HCL 40 MG DISPERSABLE TABLET PO SCH (05:59)
[2022-12-04] MEDS: DABIGATRAN ETEXILATE MESYLATE 150 MG CAPSULE PO SCH ×2 (10:09→21:01)
[2022-12-04] MEDS: TAMSULOSIN HCL 0.4 MG CAP PO SCH (10:09)
[2022-12-04] MEDS: PRENATAL VITAMINS W/ FOLIC ACID TABLET (FP) PO SCH (10:10)
[2022-12-04] MEDS: NICOTINE POLACRILEX 2 MG GUM BUC PRN (10:12)
[2022-12-04] MEDS: MAG HYDROX/AL HYDROX/SIMETH 30 ML UNIT-DOSE CUP PO PRN (20:22)
[2022-12-04] MEDS: QUEtiapine FUMARATE 100 MG TABLET (FP) PO SCH (21:01)
[2022-12-04] MEDS: THIAMINE HCL 100 MG TABLET (FP) PO SCH (21:01)
[2022-12-04] MEDS: MELATONIN 5 MG TABLETS PO SCH (21:02)
[2022-12-04] MEDS: GABAPENTIN 300 MG CAPSULE PO SCH (21:04)
[2022-12-05] MEDS: methaDONE HCL 40 MG DISPERSABLE TABLET PO SCH (06:13)
[2022-12-05] MEDS: GABAPENTIN 300 MG CAPSULE PO SCH ×3 (06:14→21:06)
[2022-12-05] MEDS: COLLOIDAL OATMEAL 1 BAR EACH TP PRN (06:17)
[2022-12-05] MEDS: DABIGATRAN ETEXILATE MESYLATE 150 MG CAPSULE PO SCH ×2 (10:06→21:06)
[2022-12-05] MEDS: TAMSULOSIN HCL 0.4 MG CAP PO SCH (10:06)
[2022-12-05] MEDS: PRENATAL VITAMINS W/ FOLIC ACID TABLET (FP) PO SCH (10:06)
[2022-12-05] MEDS: NICOTINE POLACRILEX 2 MG GUM BUC PRN (10:08)
[2022-12-05] MEDS: QUEtiapine FUMARATE 100 MG TABLET (FP) PO SCH (21:06)
[2022-12-05] MEDS: THIAMINE HCL 100 MG TABLET (FP) PO SCH (21:06)
[2022-12-05] MEDS: MELATONIN 5 MG TABLETS PO SCH (21:07)
[2022-12-06] MEDS: methaDONE HCL 40 MG DISPERSABLE TABLET PO SCH (05:56)
[2022-12-06] MEDS: GABAPENTIN 300 MG CAPSULE PO SCH ×3 (05:57→21:03)
[2022-12-06] MEDS: PRENATAL VITAMINS W/ FOLIC ACID TABLET (FP) PO SCH (10:03)
[2022-12-06] MEDS: TAMSULOSIN HCL 0.4 MG CAP PO SCH (10:04)
[2022-12-06] MEDS: DABIGATRAN ETEXILATE MESYLATE 150 MG CAPSULE PO SCH ×2 (10:04→21:03)
[2022-12-06] MEDS: NICOTINE POLACRILEX 2 MG GUM BUC PRN (10:05)
[2022-12-06] MEDS: QUEtiapine FUMARATE 100 MG TABLET (FP) PO SCH (21:02)
[2022-12-06] MEDS: MELATONIN 5 MG TABLETS PO SCH (21:02)
[2022-12-06] MEDS: THIAMINE HCL 100 MG TABLET (FP) PO SCH (21:03)
[2022-12-07] MEDS: methaDONE HCL 40 MG DISPERSABLE TABLET PO SCH (06:00)
[2022-12-07] MEDS: GABAPENTIN 300 MG CAPSULE PO SCH ×3 (06:00→21:29)
[2022-12-07] MEDS: PRENATAL VITAMINS W/ FOLIC ACID TABLET (FP) PO SCH (10:14)
[2022-12-07] MEDS: TAMSULOSIN HCL 0.4 MG CAP PO SCH (10:14)
[2022-12-07] MEDS: DABIGATRAN ETEXILATE MESYLATE 150 MG CAPSULE PO SCH ×2 (10:15→21:29)
[2022-12-07] MEDS: NICOTINE POLACRILEX 2 MG GUM BUC PRN (10:16)
[2022-12-07] MEDS: THIAMINE HCL 100 MG TABLET (FP) PO SCH (21:29)
[2022-12-07] MEDS: MELATONIN 5 MG TABLETS PO SCH (21:29)
[2022-12-07] MEDS: QUEtiapine FUMARATE 100 MG TABLET (FP) PO SCH (21:29)
[2022-12-08] MEDS: GABAPENTIN 300 MG CAPSULE PO SCH ×3 (05:57→21:01)
[2022-12-08] MEDS: methaDONE HCL 40 MG DISPERSABLE TABLET PO SCH (05:58)
[2022-12-08] MEDS: PRENATAL VITAMINS W/ FOLIC ACID TABLET (FP) PO SCH (10:09)
[2022-12-08] MEDS: DABIGATRAN ETEXILATE MESYLATE 150 MG CAPSULE PO SCH ×2 (10:09→21:02)
[2022-12-08] MEDS: TAMSULOSIN HCL 0.4 MG CAP PO SCH (10:09)
[2022-12-08] MEDS: NICOTINE POLACRILEX 2 MG GUM BUC PRN (13:40)
[2022-12-08] MEDS: THIAMINE HCL 100 MG TABLET (FP) PO SCH (21:01)
[2022-12-08] MEDS: MELATONIN 5 MG TABLETS PO SCH (21:01)
[2022-12-08] MEDS: QUEtiapine FUMARATE 100 MG TABLET (FP) PO SCH (21:01)
[2022-12-09] MEDS: methaDONE HCL 40 MG DISPERSABLE TABLET PO SCH (06:02)
[2022-12-09] MEDS: GABAPENTIN 300 MG CAPSULE PO SCH ×3 (06:04→21:00)
[2022-12-09] MEDS: PRENATAL VITAMINS W/ FOLIC ACID TABLET (FP) PO SCH (10:20)
[2022-12-09] MEDS: DABIGATRAN ETEXILATE MESYLATE 150 MG CAPSULE PO SCH ×2 (10:20→21:00)
[2022-12-09] MEDS: TAMSULOSIN HCL 0.4 MG CAP PO SCH (10:21)
[2022-12-09] MEDS: THIAMINE HCL 100 MG TABLET (FP) PO SCH (21:00)
[2022-12-09] MEDS: QUEtiapine FUMARATE 100 MG TABLET (FP) PO SCH (21:00)
[2022-12-09] MEDS: MELATONIN 5 MG TABLETS PO SCH (21:01)
[2022-12-10] MEDS ORDERED: methaDONE HCL 40 MG DISPERSABLE TABLET PO SCH ×2 (06:00)
[2022-12-10] MEDS: GABAPENTIN 300 MG CAPSULE PO SCH ×3 (06:07→21:04)
[2022-12-10] MEDS: NICOTINE POLACRILEX 2 MG GUM BUC PRN (06:53)
[2022-12-10] MEDS: TAMSULOSIN HCL 0.4 MG CAP PO SCH (10:05)
[2022-12-10] MEDS: PRENATAL VITAMINS W/ FOLIC ACID TABLET (FP) PO SCH (10:05)
[2022-12-10] MEDS: DABIGATRAN ETEXILATE MESYLATE 150 MG CAPSULE PO SCH ×2 (10:06→21:04)
[2022-12-10] MEDS: THIAMINE HCL 100 MG TABLET (FP) PO SCH (21:04)
[2022-12-10] MEDS: QUEtiapine FUMARATE 100 MG TABLET (FP) PO SCH (21:04)
[2022-12-10] MEDS: MELATONIN 5 MG TABLETS PO SCH (21:04)
[2022-12-11] MEDS: GABAPENTIN 300 MG CAPSULE PO SCH ×3 (05:53→21:05)
[2022-12-11] MEDS: TAMSULOSIN HCL 0.4 MG CAP PO SCH (10:07)
[2022-12-11] MEDS: PRENATAL VITAMINS W/ FOLIC ACID TABLET (FP) PO SCH (10:07)
[2022-12-11] MEDS: DABIGATRAN ETEXILATE MESYLATE 150 MG CAPSULE PO SCH ×2 (10:07→21:06)
[2022-12-11] MEDS: NICOTINE POLACRILEX 2 MG GUM BUC PRN (14:36)
[2022-12-11] MEDS: ACETAMINOPHEN 325 MG TABLET (FP) PO PRN (18:59)
[2022-12-11] MEDS: THIAMINE HCL 100 MG TABLET (FP) PO SCH (21:05)
[2022-12-11] MEDS: QUEtiapine FUMARATE 100 MG TABLET (FP) PO SCH (21:05)
[2022-12-11] MEDS: MELATONIN 5 MG TABLETS PO SCH (21:06)
[2022-12-11] MEDS: COLLOIDAL OATMEAL 1 BAR EACH TP PRN (21:07)
[2022-12-12] MEDS: GABAPENTIN 300 MG CAPSULE PO SCH ×3 (05:59→21:00)
[2022-12-12] MEDS: NICOTINE POLACRILEX 2 MG GUM BUC PRN ×2 (06:02→10:04)
[2022-12-12] MEDS: TAMSULOSIN HCL 0.4 MG CAP PO SCH (10:02)
[2022-12-12] MEDS: DABIGATRAN ETEXILATE MESYLATE 150 MG CAPSULE PO SCH ×2 (10:02→21:00)
[2022-12-12] MEDS: PRENATAL VITAMINS W/ FOLIC ACID TABLET (FP) PO SCH (10:02)
[2022-12-12] MEDS: QUEtiapine FUMARATE 100 MG TABLET (FP) PO SCH (21:00)
[2022-12-12] MEDS: THIAMINE HCL 100 MG TABLET (FP) PO SCH (21:00)
[2022-12-12] MEDS: MELATONIN 5 MG TABLETS PO SCH (21:00)
[2022-12-13] MEDS: GABAPENTIN 300 MG CAPSULE PO SCH ×3 (06:25→21:01)
[2022-12-13] MEDS: PRENATAL VITAMINS W/ FOLIC ACID TABLET (FP) PO SCH (10:04)
[2022-12-13] MEDS: DABIGATRAN ETEXILATE MESYLATE 150 MG CAPSULE PO SCH ×2 (10:05→21:02)
[2022-12-13] MEDS: TAMSULOSIN HCL 0.4 MG CAP PO SCH (10:05)
[2022-12-13] MEDS: THIAMINE HCL 100 MG TABLET (FP) PO SCH (21:01)
[2022-12-13] MEDS: QUEtiapine FUMARATE 100 MG TABLET (FP) PO SCH (21:01)
[2022-12-13] MEDS: MELATONIN 5 MG TABLETS PO SCH (21:01)
[2022-12-13] MEDS: ACETAMINOPHEN 325 MG TABLET (FP) PO PRN (21:47)
[2022-12-14] MEDS: GABAPENTIN 300 MG CAPSULE PO SCH ×3 (06:08→21:01)
[2022-12-14] MEDS: TAMSULOSIN HCL 0.4 MG CAP PO SCH (09:40)
[2022-12-14] MEDS: DABIGATRAN ETEXILATE MESYLATE 150 MG CAPSULE PO SCH ×2 (09:41→21:01)
[2022-12-14] MEDS: PRENATAL VITAMINS W/ FOLIC ACID TABLET (FP) PO SCH (09:41)
[2022-12-14] MEDS: MAG HYDROX/AL HYDROX/SIMETH 30 ML UNIT-DOSE CUP PO PRN (11:27)
[2022-12-14] MEDS: QUEtiapine FUMARATE 100 MG TABLET (FP) PO SCH (21:01)
[2022-12-14] MEDS: THIAMINE HCL 100 MG TABLET (FP) PO SCH (21:01)
[2022-12-14] MEDS: MELATONIN 5 MG TABLETS PO SCH (21:01)
[2022-12-15] MEDS: GABAPENTIN 300 MG CAPSULE PO SCH ×3 (05:59→21:00)
[2022-12-15] MEDS: PRENATAL VITAMINS W/ FOLIC ACID TABLET (FP) PO SCH (09:41)
[2022-12-15] MEDS: TAMSULOSIN HCL 0.4 MG CAP PO SCH (09:41)
[2022-12-15] MEDS: DABIGATRAN ETEXILATE MESYLATE 150 MG CAPSULE PO SCH ×2 (09:42→21:01)
[2022-12-15] MEDS: MAG HYDROX/AL HYDROX/SIMETH 30 ML UNIT-DOSE CUP PO PRN (10:10)
[2022-12-15] MEDS: ACETAMINOPHEN 325 MG TABLET (FP) PO PRN (10:11)
[2022-12-15] MEDS: THIAMINE HCL 100 MG TABLET (FP) PO SCH (21:00)
[2022-12-15] MEDS: MELATONIN 5 MG TABLETS PO SCH (21:01)
[2022-12-15] MEDS: QUEtiapine FUMARATE 100 MG TABLET (FP) PO SCH (21:01)
[2022-12-16] MEDS: GABAPENTIN 300 MG CAPSULE PO SCH ×3 (06:22→21:22)
[2022-12-16] MEDS: MAG HYDROX/AL HYDROX/SIMETH 30 ML UNIT-DOSE CUP PO PRN ×2 (06:24→16:48)
[2022-12-16] MEDS: PRENATAL VITAMINS W/ FOLIC ACID TABLET (FP) PO SCH (10:04)
[2022-12-16] MEDS: TAMSULOSIN HCL 0.4 MG CAP PO SCH (10:04)
[2022-12-16] MEDS: DABIGATRAN ETEXILATE MESYLATE 150 MG CAPSULE PO SCH ×2 (10:04→21:22)
[2022-12-16] MEDS: LOPERAMIDE HCL 2 MG CAPSULE PO PRN (16:48)
[2022-12-16] MEDS: QUEtiapine FUMARATE 100 MG TABLET (FP) PO SCH (21:22)
[2022-12-16] MEDS: THIAMINE HCL 100 MG TABLET (FP) PO SCH (21:22)
[2022-12-16] MEDS: MELATONIN 5 MG TABLETS PO SCH (21:22)
[2022-12-17] MEDS: GABAPENTIN 300 MG CAPSULE PO SCH ×3 (06:26→21:06)
[2022-12-17] MEDS: LOPERAMIDE HCL 2 MG CAPSULE PO PRN ×2 (06:28→12:22)
[2022-12-17] MEDS: PRENATAL VITAMINS W/ FOLIC ACID TABLET (FP) PO SCH (09:58)
[2022-12-17] MEDS: DABIGATRAN ETEXILATE MESYLATE 150 MG CAPSULE PO SCH ×2 (09:59→21:07)
[2022-12-17] MEDS: TAMSULOSIN HCL 0.4 MG CAP PO SCH (09:59)
[2022-12-17] MEDS ORDERED: DIPHENOXYLATE 2.5/ATROPINE.025 1 COMBO TABLET PO PRN (13:44)
[2022-12-17] MEDS: QUEtiapine FUMARATE 100 MG TABLET (FP) PO SCH (21:06)
[2022-12-17] MEDS: THIAMINE HCL 100 MG TABLET (FP) PO SCH (21:07)
[2022-12-17] MEDS: MELATONIN 5 MG TABLETS PO SCH (21:07)
[2022-12-18] MEDS: GABAPENTIN 300 MG CAPSULE PO SCH (06:21)
[2022-12-18 07:19] VITALS: BP 151/78; PULSE 61; RESP 18; TEMP 97.1
[2022-12-18] MEDS: TAMSULOSIN HCL 0.4 MG CAP PO SCH (09:43)
[2022-12-18] MEDS: DABIGATRAN ETEXILATE MESYLATE 150 MG CAPSULE PO SCH (09:43)
[2022-12-18] MEDS: PRENATAL VITAMINS W/ FOLIC ACID TABLET (FP) PO SCH (09:43)
== END 2022-12-18 11:55 | disposition other institution (70) | DRG 773 ==
LOC: YASAS 21:42 → Y5N 12-02 02:17
PROVIDERS: ADMIT Allergy & Immunology; ATTEND Psychiatry & Neurology Pain Medicine
PROC: HZ2ZZZZ Detoxification Services for Substance Abuse Treatment (ICD-10-PCS; principal; 2022-12-02)
DX: F11.20 Opioid dependence, uncomplicated (principal); F14.20 Cocaine dependence, uncomplicated; F17.210 Nicotine dependence, cigarettes, uncomplicated; F19.280 Other psychoactive substance dependence with psychoactive substance-induced anxiety disorder; J45.909 Unspecified asthma, uncomplicated; K21.9 Gastro-esophageal reflux disease without esophagitis; M54.50 Low back pain, unspecified; G89.29 Other chronic pain; N40.0 Benign prostatic hyperplasia without lower urinary tract symptoms; R19.7 Diarrhea, unspecified; R63.4 Abnormal weight loss; Z68.20 Body mass index [BMI] 20.0-20.9, adult; Z56.0 Unemployment, unspecified; Z59.00 Homelessness unspecified
CPT/HCPCS: 36415; 80053; 81003; 85027; 86780; 86803; 87522; 87635

== ENCOUNTER 2023-05-15 08:16 | Inpatient (IN) | payer OTHER ==
[2023-05-15 09:04] VITALS: BMI 20.7
[2023-05-15] MEDS ORDERED: IBUPROFEN 400 MG TABLET (FP) PO PRN (09:37)
[2023-05-15] MEDS ORDERED: NALOXONE HCL (KLOXXADO) 8 MG SPRAY NS PRN (09:37)
[2023-05-15] MEDS ORDERED: BENZOCAINE/MENTHOL (CHLORASEPTIC ) LOZENGE MM PRN (09:37)
[2023-05-15] MEDS ORDERED: ACETAMINOPHEN 325 MG TABLET (FP) PO PRN (09:37)
[2023-05-15] MEDS ORDERED: IBUPROFEN 600 MG TABLET (FP) PO PRN (09:37)
[2023-05-15] MEDS ORDERED: guaiFENesin 600 MG TABLET.ER (FP) PO PRN (09:37)
[2023-05-15] MEDS ORDERED: POLYETHYLENE GLYCOL (HEALTHYLAX) 3350 17 GM PACKET PO PRN (09:37)
[2023-05-15] MEDS ORDERED: NALOXONE HCL 0.4 MG/ML VIAL IM PRN (09:37)
[2023-05-15] MEDS ORDERED: MAGNESIUM HYDROX 2400MG/30ML ORAL SUSPENSION 30 ML CUP PO PRN (09:37)
[2023-05-15] MEDS ORDERED: hydrOXYzine PAMOATE 25 MG CAPSULE (FP) PO PRN (09:37)
[2023-05-15] MEDS ORDERED: NICOTINE POLACRILEX 2 MG GUM BUC PRN (09:37)
[2023-05-15] MEDS ORDERED: BENZONATATE 200 MG CAPSULE PO PRN (09:37)
[2023-05-15] MEDS ORDERED: LOPERAMIDE HCL 2 MG CAPSULE PO PRN (09:37)
[2023-05-15] MEDS ORDERED: NICOTINE 21 MG/24 HOURS TOPICAL PATCH ONE (10:08)
[2023-05-15] MEDS ORDERED: PRENATAL VITAMINS W/ FOLIC ACID TABLET (FP) PO ONE (10:08)
[2023-05-15] MEDS: NICOTINE 21 MG/24 HOURS TOPICAL PATCH TD SCH (10:16)
[2023-05-15] MEDS: PRENATAL VITAMINS W/ FOLIC ACID TABLET (FP) PO SCH (10:16)
[2023-05-15] MEDS ORDERED: FAMOTIDINE 20 MG TABLET PO PRN (12:35)
[2023-05-15] MEDS ORDERED: ALBUTEROL SO4 HFA INHALER IH PRN (12:35)
[2023-05-15] MEDS: CYCLOBENZAPRINE HCL 5 MG TABLET PO SCH (21:13)
[2023-05-15] MEDS: THIAMINE HCL 100 MG TABLET (FP) PO SCH (21:13)
[2023-05-15] MEDS: DABIGATRAN ETEXILATE MESYLATE 150 MG CAPSULE PO SCH (21:13)
[2023-05-15] MEDS: QUEtiapine FUMARATE 100 MG TABLET (FP) PO SCH (21:13)
[2023-05-15] MEDS: MELATONIN 5 MG TABLETS PO SCH (21:14)
[2023-05-16] MEDS: ACETAMINOPHEN 500 MG TABLET (FP) PO PRN (05:46)
[2023-05-16] MEDS ORDERED: methaDONE HCL 40 MG DISPERSABLE TABLET PO SCH (06:30)
[2023-05-16 08:55] LABS: HEMATOCRIT 33.1 % (35.4-49); HEMOGLOBIN 10.9 GM/dL (11.7-16.9); MCH 26.6 pg (25.7-33.7); MEAN CELL VOLUME 80.5 fl (80-96); MEAN PLT VOLUME 8.2 fl (7.5-11.1); PLATELET COUNT 197 10^3/uL (134-434); RBC 4.11 M/mm3 (4.00-5.60); RDW 15.9 % (11.9-15.9)
[2023-05-16 08:57] LABS: PH,URINE 6.5 (5.0-8.0); URINE APPEARANCE CLEAR; URINE BILIRUBIN NEGATIVE (NEGATIVE); URINE COLOR YELLOW; URINE GLUCOSE (UA) NEGATIVE (NEGATIVE); URINE KETONE NEGATIVE (NEGATIVE); URINE LEUK ESTERASE NEGATIVE (NEGATIVE); URINE NITRITE NEGATIVE (NEGATIVE); URINE PROTEIN NEGATIVE (NEGATIVE); URINE UROBILINOGEN 0.2 mg/dL (0.2-1.0)
[2023-05-16 09:15] LABS: POTASSIUM 4.2 mmol/L (3.5-5.1)
[2023-05-16 09:28] LABS: CALCIUM 9.6 mg/dL (8.5-10.1)
[2023-05-16 09:29] LABS: ALBUMIN 3.2 g/dl (3.4-5.0); BLOOD UREA NITROGEN 17.4 mg/dL (7-18); CREATININE 1.1 mg/dL (0.55-1.3)
[2023-05-16 09:34] LABS: BILIRUBIN,TOTAL 0.3 mg/dL (0.2-1); TOT PROT 8.1 g/dl (6.4-8.2)
[2023-05-16] MEDS: TAMSULOSIN HCL 0.4 MG CAP PO SCH (09:50)
[2023-05-17] MEDS ORDERED: PATIENT'S OWN MEDICATION (NON-FORMULARY) (Meloxicam [Meloxicam] 7.5 MG Tablet) PO PRN (14:36)
[2023-05-17] MEDS: GABAPENTIN 300 MG CAPSULE PO SCH (15:01)
[2023-05-17] MEDS: LIDOCAINE 5% TOPICAL PATCH TP SCH (15:01)
[2023-05-17] MEDS: LIDOCAINE PATCH REMOVAL MC SCH (21:15)
[2023-05-17] MEDS: CLINDAMYCIN PHOSPHATE 1% TOPICAL GEL 30 GM TUBE TP SCH (21:15)
[2023-05-20] MEDS: MAG HYDROX/AL HYDROX/SIMETH 30 ML UNIT-DOSE CUP PO PRN (12:10)
[2023-05-24] MEDS ORDERED: DOCUSATE SODIUM 100 MG CAPSULE (FP) PO PRN (15:48)
[2023-05-24] MEDS ORDERED: ACETAMINOPHEN 500 MG TABLET (FP) PO PRN (15:58)
[2023-05-24] MEDS: IBUPROFEN 600 MG TABLET (FP) PO PRN (21:02)
[2023-05-24] MEDS: MIRTAZAPINE 15 MG TABLET (FP) PO SCH (21:02)
[2023-05-24] MEDS: ACETAMINOPHEN 325 MG TABLET (FP) PO PRN (21:05)
[2023-05-25] MEDS: BENZOCAINE 28 GM HEMORRHOIDAL OINTMENT RC PRN (09:59)
[2023-05-27 06:40] VITALS: TEMP 97.9
[2023-05-27 08:30] VITALS: BP 116/70; PULSE 98; RESP 17
== END 2023-05-27 14:32 | disposition home or self-care (01) | DRG 772 ==
LOC: YASAS 08:16 → Y3NR 10:39 → Y3E 05-16 13:20
PROVIDERS: ADMIT Allergy & Immunology; ATTEND Psychiatry & Neurology Pain Medicine
PROC: HZ42ZZZ Group Counseling for Substance Abuse Treatment, Cognitive-Behavioral (ICD-10-PCS; principal; 2023-05-15)
DX: F10.20 Alcohol dependence, uncomplicated (principal); F14.20 Cocaine dependence, uncomplicated; F11.20 Opioid dependence, uncomplicated; F17.210 Nicotine dependence, cigarettes, uncomplicated; D41.8 Neoplasm of uncertain behavior of other specified urinary organs; F43.10 Post-traumatic stress disorder, unspecified; J45.909 Unspecified asthma, uncomplicated; K21.9 Gastro-esophageal reflux disease without esophagitis; K62.5 Hemorrhage of anus and rectum; M15.9 Polyosteoarthritis, unspecified; M54.50 Low back pain, unspecified; G89.29 Other chronic pain; N40.0 Benign prostatic hyperplasia without lower urinary tract symptoms; Z86.19 Personal history of other infectious and parasitic diseases; Z99.89 Dependence on other enabling machines and devices
CPT/HCPCS: 36415; 80053; 81003; 85027; 86780; 87811; 93005; 93010

== ENCOUNTER 2023-05-31 07:46 | Inpatient (IN) | payer OTHER ==
[2023-05-31 08:06] VITALS: BMI 22.2
[2023-05-31] MEDS ORDERED: ACETAMINOPHEN INJECTION 100 ML IVPB ONE (09:40)
[2023-05-31] MEDS ORDERED: VANCOMYCIN 1 GRAM (PRE-DOCKED) 1,000 MG/250 ML BAG IVPB ONE (09:41)
[2023-05-31] MEDS: ACETAMINOPHEN 1000 MG/100 ML BAG IVPB ONE (09:50)
[2023-05-31] MEDS: VANCOMYCIN 1,000 MG in DEXTROSE 5%-WATER - 250 ML IVPB ONE (10:06)
[2023-05-31 10:10] LABS: BASO % 0.5 % (0-2.0); EOS % 1.3 % (0-4.5); HEMATOCRIT 29.8 % (35.4-49); HEMOGLOBIN 10.1 GM/dL (11.7-16.9); LYMPH % 21.6 % (8-40); MCH 26.9 pg (25.7-33.7); MCHC 33.7 g/dl (32.0-35.9); MEAN CELL VOLUME 79.7 fl (80-96); MEAN PLT VOLUME 7.8 fl (7.5-11.1); MONO % 13.9 % (3.8-10.2); NEUT % 62.7 % (42.8-82.8); PLATELET COUNT 190 10^3/uL (134-434); RBC 3.74 M/mm3 (4.00-5.60); RDW 17.3 % (11.9-15.9); WHITE BLOOD COUNT 4.4 K/mm3 (4.0-10.0)
[2023-05-31 10:15] LABS: INR 1.28 (0.83-1.09); PROTHROMBIN TIME (PATIENT) 14.8 SEC (9.7-13.0)
[2023-05-31 10:17] LABS: ACTIVATED PTT 53.7 SECONDS (25.2-36.5)
[2023-05-31 10:55] LABS: ALBUMIN 3.6 g/dl (3.4-5.0); BILIRUBIN,TOTAL 0.6 mg/dL (0.2-1); BLOOD UREA NITROGEN 20.8 mg/dL (7-18); CALCIUM 9.6 mg/dL (8.5-10.1); POTASSIUM 4.1 mmol/L (3.5-5.1); TOT PROT 8.8 g/dl (6.4-8.2)
[2023-05-31] MEDS ORDERED: KETOROLAC TROMETHAMINE 30 MG/1 ML VIAL ONE (12:32)
[2023-05-31] MEDS: KETOROLAC TROMETHAMINE 30 MG/1 ML VIAL IVPUSH ONE (12:38)
[2023-05-31] MEDS ORDERED: PATIENT'S OWN MEDICATION (NON-FORMULARY) (Meloxicam [Meloxicam] 7.5 MG Tablet) PO PRN (12:39)
[2023-05-31] MEDS ORDERED: FAMOTIDINE 20 MG TABLET PO PRN (12:39)
[2023-05-31] MEDS ORDERED: ALBUTEROL SO4 HFA INHALER IH PRN (12:39)
[2023-05-31] MEDS ORDERED: NALOXONE (NYS OPIOID OVERDOSE PROGRAM) 4 MG/0.1 ML SPRAY NS PRN (12:39)
[2023-05-31] MEDS ORDERED: CEFEPIME HCL 1 GM VIAL (RESTRICTED TO ID) IVPB SCH (12:45)
[2023-05-31] MEDS ORDERED: CEFEPIME 2 GM/100 ML BAG IVPB ONE (13:37)
[2023-05-31] MEDS: CEFEPIME 2 GM in DEXTROSE 5%-WATER 100 ML IVPB SCH (13:40)
[2023-05-31] MEDS ORDERED: hydrOXYzine PAMOATE 50 MG CAPSULE (FP) ONE (15:27)
[2023-05-31] MEDS ORDERED: KETOROLAC TROMETHAMINE 15 MG/ML VIAL ONE (15:27)
[2023-05-31] MEDS: KETOROLAC TROMETHAMINE 15 MG/ML VIAL IVPUSH PRN (15:32)
[2023-05-31] MEDS: hydrOXYzine PAMOATE 25 MG CAPSULE (FP) PO PRN (15:32)
[2023-05-31] MEDS ORDERED: CEFEPIME 1 GM/100 ML BAG IVPB ONE (19:03)
[2023-05-31] MEDS: CEFEPIME 1 GM in DEXTROSE 5%-WATER 100 ML IVPB SCH (19:08)
[2023-05-31] MEDS: QUEtiapine FUMARATE 100 MG TABLET (FP) PO SCH (21:49)
[2023-05-31] MEDS: GABAPENTIN 300 MG CAPSULE PO ONE (21:49)
[2023-05-31] MEDS: VANCOMYCIN/WATER FOR INJ (PEG) 1,000 MG/200 ML BAG IVPB SCH (21:49)
[2023-05-31] MEDS: DABIGATRAN ETEXILATE MESYLATE 150 MG CAPSULE PO SCH (22:59)
[2023-06-01] MEDS ORDERED: methaDONE HCL 40 MG DISPERSABLE TABLET PO SCH (10:00)
[2023-06-01] MEDS: TAMSULOSIN HCL 0.4 MG CAP PO SCH (10:01)
[2023-06-01] MEDS: NICOTINE 7 MG/24 HOURS TOPICAL PATCH TD SCH (12:11)
[2023-06-01 12:51] LABS: BASO % 0.3 % (0-2.0); EOS % 1.8 % (0-4.5); HEMOGLOBIN 10.4 GM/dL (11.7-16.9); LYMPH % 22.5 % (8-40); MCH 26.7 pg (25.7-33.7); MCHC 33.6 g/dl (32.0-35.9); MEAN CELL VOLUME 79.6 fl (80-96); MEAN PLT VOLUME 7.8 fl (7.5-11.1); MONO % 12.4 % (3.8-10.2); PLATELET COUNT 226 10^3/uL (134-434); RBC 3.89 M/mm3 (4.00-5.60); WHITE BLOOD COUNT 4.3 K/mm3 (4.0-10.0)
[2023-06-01 13:16] LABS: POTASSIUM 4.3 mmol/L (3.5-5.1)
[2023-06-01 13:18] LABS: CALCIUM 9.2 mg/dL (8.5-10.1)
[2023-06-01 13:19] LABS: BLOOD UREA NITROGEN 23.8 mg/dL (7-18)
[2023-06-01] MEDS: GABAPENTIN 300 MG CAPSULE PO SCH (13:19)
[2023-06-01 16:35] VITALS: RESP 18
[2023-06-01] MEDS: VANCOMYCIN 1,000 MG in DEXTROSE 5%-WATER - 250 ML IVPB SCH (17:51)
[2023-06-01] MEDS: CEFTRIAXONE 2 GM-D5W BAG 2 GM/50 ML BAG IVPB SCH (19:23)
[2023-06-01] MEDS: CEFTRIAXONE 2 GM in DEXTROSE 5%-WATER 100 ML IVPB SCH (21:27)
[2023-06-01] MEDS: VANCOMYCIN/WATER FOR INJ (PEG) 1,000 MG/200 ML BAG IVPB SCH (21:28)
[2023-06-02 08:18] LABS: BASO % 0.3 % (0-2.0); EOS % 3.2 % (0-4.5); HEMATOCRIT 31.3 % (35.4-49); HEMOGLOBIN 10.3 GM/dL (11.7-16.9); LYMPH % 24.6 % (8-40); MCH 26.2 pg (25.7-33.7); MCHC 32.8 g/dl (32.0-35.9); MEAN CELL VOLUME 79.9 fl (80-96); MEAN PLT VOLUME 7.7 fl (7.5-11.1); MONO % 10.8 % (3.8-10.2); NEUT % 61.1 % (42.8-82.8); PLATELET COUNT 254 10^3/uL (134-434); RBC 3.91 M/mm3 (4.00-5.60); RDW 16.6 % (11.9-15.9); WHITE BLOOD COUNT 4.4 K/mm3 (4.0-10.0)
[2023-06-02 08:53] LABS: POTASSIUM 4.6 mmol/L (3.5-5.1)
[2023-06-02 08:55] LABS: CALCIUM 9.1 mg/dL (8.5-10.1)
[2023-06-02 08:56] LABS: BLOOD UREA NITROGEN 23.9 mg/dL (7-18)
[2023-06-02 08:59] LABS: CREATININE 1.1 mg/dL (0.55-1.3)
[2023-06-03 09:24] LABS: BASO % 0.4 % (0-2.0); HEMATOCRIT 33.9 % (35.4-49); HEMOGLOBIN 11.4 GM/dL (11.7-16.9); LYMPH % 29.5 % (8-40); MCH 26.8 pg (25.7-33.7); MCHC 33.7 g/dl (32.0-35.9); MEAN CELL VOLUME 79.3 fl (80-96); MEAN PLT VOLUME 7.5 fl (7.5-11.1); NEUT % 57.1 % (42.8-82.8); PLATELET COUNT 309 10^3/uL (134-434); RBC 4.28 M/mm3 (4.00-5.60); RDW 16.9 % (11.9-15.9); WHITE BLOOD COUNT 4.9 K/mm3 (4.0-10.0)
[2023-06-03 10:40] LABS: POTASSIUM 4.5 mmol/L (3.5-5.1)
[2023-06-03 10:48] LABS: BILIRUBIN,TOTAL 0.4 mg/dL (0.2-1); TOT PROT 9.1 g/dl (6.4-8.2)
[2023-06-03 11:01] LABS: ALBUMIN 3.6 g/dl (3.4-5.0); CALCIUM 9.6 mg/dL (8.5-10.1)
[2023-06-03 11:02] LABS: BLOOD UREA NITROGEN 22.8 mg/dL (7-18)
[2023-06-03 11:04] LABS: CREATININE 1.1 mg/dL (0.55-1.3)
[2023-06-04 08:36] LABS: BASO % 0.4 % (0-2.0); EOS % 3.9 % (0-4.5); HEMATOCRIT 31.4 % (35.4-49); HEMOGLOBIN 10.5 GM/dL (11.7-16.9); LYMPH % 26.8 % (8-40); MCH 26.6 pg (25.7-33.7); MCHC 33.4 g/dl (32.0-35.9); MEAN CELL VOLUME 79.7 fl (80-96); MEAN PLT VOLUME 7.7 fl (7.5-11.1); MONO % 10.2 % (3.8-10.2); NEUT % 58.7 % (42.8-82.8); PLATELET COUNT 280 10^3/uL (134-434); RBC 3.94 M/mm3 (4.00-5.60); RDW 16.1 % (11.9-15.9)
[2023-06-04 08:47] LABS: POTASSIUM 4.9 mmol/L (3.5-5.1)
[2023-06-04 09:07] LABS: CALCIUM 9.5 mg/dL (8.5-10.1)
[2023-06-04 09:08] LABS: ALBUMIN 3.2 g/dl (3.4-5.0); BLOOD UREA NITROGEN 24.2 mg/dL (7-18)
[2023-06-04 09:12] LABS: TOT PROT 8.6 g/dl (6.4-8.2)
[2023-06-04 09:13] LABS: BILIRUBIN,TOTAL 0.4 mg/dL (0.2-1)
[2023-06-04] MEDS: VANCOMYCIN/WATER FOR INJ (PEG) 750 MG/150 ML BAG IVPB SCH (10:26)
[2023-06-04 10:34] VITALS: BP 121/79; PULSE 89; TEMP 98.5
== END 2023-06-04 12:17 | disposition home or self-care (01) | DRG 383 ==
LOC: JER 07:46 → JERBED 12:39 → J5S 20:20
PROVIDERS: ADMIT Internal Medicine
DX: L03.114 Cellulitis of left upper limb (principal); F11.20 Opioid dependence, uncomplicated; Z86.718 Personal history of other venous thrombosis and embolism; D50.9 Iron deficiency anemia, unspecified; M54.50 Low back pain, unspecified; F19.20 Other psychoactive substance dependence, uncomplicated
CPT/HCPCS: 36415; 72149-TC; 73130-TC-LT-FY; 73201-TC-RT; 80048; 80053; 82962; 83605; 85025; 85610; 85730; 87040; 87186; 93005; 93010; 93306-TC; 93971; 99285-25; G0480; J0131; Q9967

== ENCOUNTER 2023-07-10 07:13 | Emergency (ER) | payer OTHER ==
[2023-07-10 07:19] VITALS: BP 126/86; PULSE 85; RESP 16; TEMP 98.2; BMI 24.2
[2023-07-10] MEDS ORDERED: ACETAMINOPHEN 500 MG TABLET (FP) ONE (07:56)
[2023-07-10] MEDS ORDERED: LIDOCAINE 4% PATCH TP ONE (07:56)
[2023-07-10] MEDS: ACETAMINOPHEN 500 MG TABLET (FP) PO ONE (08:18)
[2023-07-10] MEDS: LIDOCAINE 5% TOPICAL PATCH TP ONE (08:18)
[2023-07-10] MEDS ORDERED: KETOROLAC TROMETHAMINE 30 MG/1 ML VIAL ONE (08:23)
[2023-07-10] MEDS: KETOROLAC TROMETHAMINE 30 MG/1 ML VIAL IM ONE (08:26)
[2023-07-10 08:32] LABS: EPI CELLS 7 /uL (0-25.1); HYALINE CASTS 0 /uL (0-3.1); PH,URINE 5.5 (5.0-8.0); URINE APPEARANCE CLEAR; URINE BACTERIA 2 /uL (0-1359); URINE BILIRUBIN NEGATIVE (NEGATIVE); URINE COLOR YELLOW; URINE GLUCOSE (UA) NEGATIVE (NEGATIVE); URINE KETONE NEGATIVE (NEGATIVE); URINE LEUK ESTERASE NEGATIVE (NEGATIVE); URINE NITRITE NEGATIVE (NEGATIVE); URINE PROTEIN TRACE (NEGATIVE); URINE RBC 21 /uL (0-23.9); URINE UROBILINOGEN 0.2 mg/dL (0.2-1.0); URINE WBC 8 /uL (0-25.8)
[2023-07-10] MEDS ORDERED: METHOCARBAMOL 500 MG TABLET ONE (10:16)
[2023-07-10] MEDS: METHOCARBAMOL 500 MG TABLET PO ONE (10:19)
[2023-07-10] MEDS ORDERED: LIDOCAINE PATCH REMOVAL MC SCH (22:00)
== END 2023-07-10 11:16 | disposition home or self-care (01) ==
LOC: JER 07:13
PROC: 3E0233Z Introduction of Anti-inflammatory into Muscle, Percutaneous Approach (ICD-10-PCS; principal; 2023-07-10)
DX: G89.29 Other chronic pain (principal); M54.50 Low back pain, unspecified
CPT/HCPCS: 81003; 87086; 99284-25

== ENCOUNTER 2023-07-11 07:39 | Emergency (ER) | payer OTHER ==
[2023-07-11 07:56] VITALS: RESP 18; TEMP 98; BMI 21.5
[2023-07-11] MEDS ORDERED: ACETAMINOPHEN INJECTION 100 ML IVPB ONE (08:44)
[2023-07-11] MEDS ORDERED: LIDOCAINE 5% TOPICAL PATCH ONE (08:45)
[2023-07-11 09:26] LABS: BASO % 0.4 % (0-2.0); EOS % 0.7 % (0-4.5); HEMATOCRIT 31.6 % (35.4-49); HEMOGLOBIN 10.8 GM/dL (11.7-16.9); LYMPH % 16.8 % (8-40); MCH 27.2 pg (25.7-33.7); MCHC 34.4 g/dl (32.0-35.9); MEAN CELL VOLUME 79.2 fl (80-96); MEAN PLT VOLUME 7.4 fl (7.5-11.1); MONO % 5.7 % (3.8-10.2); NEUT % 76.4 % (42.8-82.8); PLATELET COUNT 221 10^3/uL (134-434); RBC 3.99 M/mm3 (4.00-5.60); RDW 16.5 % (11.9-15.9); WHITE BLOOD COUNT 6.5 K/mm3 (4.0-10.0)
[2023-07-11 09:34] LABS: INR 1.31 (0.83-1.09); PROTHROMBIN TIME (PATIENT) 14.7 SEC (9.7-13.0)
[2023-07-11 09:36] LABS: ACTIVATED PTT 62.6 SECONDS (25.2-36.5)
[2023-07-11 09:46] LABS: POTASSIUM 4.4 mmol/L (3.5-5.1)
[2023-07-11 09:48] LABS: ALBUMIN 3.6 g/dl (3.4-5.0); CALCIUM 9.4 mg/dL (8.5-10.1)
[2023-07-11 09:49] LABS: BLOOD UREA NITROGEN 22.3 mg/dL (7-18)
[2023-07-11] MEDS: LIDOCAINE 5% TOPICAL PATCH TP ONE (09:50)
[2023-07-11 09:51] LABS: CREATININE 1.1 mg/dL (0.55-1.3)
[2023-07-11] MEDS: ACETAMINOPHEN 1000 MG/100 ML BAG IVPB ONE (09:51)
[2023-07-11 09:53] LABS: BILIRUBIN,TOTAL 0.4 mg/dL (0.2-1); TOT PROT 8.9 g/dl (6.4-8.2)
[2023-07-11] MEDS ORDERED: ACETAMINOPHEN 325 MG TABLET (FP) PO ONE (16:43)
[2023-07-11 17:14] VITALS: BP 126/80; PULSE 77
[2023-07-11] MEDS ORDERED: LIDOCAINE PATCH REMOVAL MC ONE (22:00)
== END 2023-07-11 17:14 | disposition home or self-care (01) ==
LOC: JER 07:39
PROC: 3E033NZ Introduction of Analgesics, Hypnotics, Sedatives into Peripheral Vein, Percutaneous Approach (ICD-10-PCS; principal; 2023-07-11)
DX: K62.5 Hemorrhage of anus and rectum (principal); R19.7 Diarrhea, unspecified; R10.32 Left lower quadrant pain; R11.0 Nausea; M54.9 Dorsalgia, unspecified; G89.29 Other chronic pain
CPT/HCPCS: 36415; 74174-TC; 80053; 82272; 85025; 85610; 85730; 86850; 86900; 86901; 99284-25; J0131

== ENCOUNTER 2023-07-22 18:36 | Inpatient (IN) | payer OTHER ==
[2023-07-22] MEDS: LIDOCAINE 4% PATCH TP ONE (20:01)
[2023-07-22] MEDS: METHOCARBAMOL 500 MG TABLET PO ONE (20:02)
[2023-07-22] MEDS: ACETAMINOPHEN 325 MG TABLET (FP) PO ONE (20:02)
[2023-07-22] MEDS: CEFEPIME HCL 2 GM VIAL (RESTRICTED TO ID) IVPB ONE (20:03)
[2023-07-22] MEDS ORDERED: METHOCARBAMOL 500 MG TABLET ONE (20:06)
[2023-07-22] MEDS ORDERED: ACETAMINOPHEN 325 MG TABLET (FP) ONE (20:06)
[2023-07-22] MEDS ORDERED: LIDOCAINE 4% PATCH TP ONE (20:06)
[2023-07-22] MEDS ORDERED: CEFEPIME 2 GM/100 ML BAG IVPB ONE (20:07)
[2023-07-22] MEDS: VANCOMYCIN PREMIX 1.75 GM 1,750 MG/350 ML PIGGYBACK IVPB ONE (20:27)
[2023-07-23] MEDS ORDERED: METHOCARBAMOL 500 MG TABLET ONE (01:02)
[2023-07-23] MEDS: ACETAMINOPHEN 1000 MG/100 ML BAG IVPB SCH (01:03)
[2023-07-23] MEDS: METHOCARBAMOL 500 MG TABLET PO SCH (01:03)
[2023-07-23] MEDS ORDERED: ACETAMINOPHEN INJECTION 100 ML IVPB ONE (01:05)
[2023-07-23] MEDS: QUEtiapine FUMARATE 100 MG TABLET (FP) PO SCH (01:22)
[2023-07-23] MEDS: GABAPENTIN 300 MG CAPSULE PO SCH (01:22)
[2023-07-23] MEDS ORDERED: GABAPENTIN 300 MG CAPSULE ONE (01:24)
[2023-07-23] MEDS ORDERED: QUEtiapine FUMARATE 100 MG TABLET (FP) ONE (01:24)
[2023-07-23] MEDS ORDERED: methaDONE HCL 10 MG TABLET PO SCH (06:30)
[2023-07-23] MEDS: LIDOCAINE PATCH REMOVAL MC SCH ×2 (07:12→21:47)
[2023-07-23 07:59] LABS: HEMATOCRIT 32.8 % (35.4-49); HEMOGLOBIN 10.9 GM/dL (11.7-16.9); MCH 27.1 pg (25.7-33.7); MCHC 33.4 g/dl (32.0-35.9); MEAN CELL VOLUME 81.1 fl (80-96); MEAN PLT VOLUME 7.9 fl (7.5-11.1); PLATELET COUNT 224 10^3/uL (134-434); RBC 4.04 M/mm3 (4.00-5.60); RDW 16.9 % (11.9-15.9); WHITE BLOOD COUNT 4.8 K/mm3 (4.0-10.0)
[2023-07-23 08:12] LABS: POTASSIUM 3.9 mmol/L (3.5-5.1)
[2023-07-23 08:14] LABS: CALCIUM 9.8 mg/dL (8.5-10.1)
[2023-07-23 08:15] LABS: ALBUMIN 3.7 g/dl (3.4-5.0); BLOOD UREA NITROGEN 12.1 mg/dL (7-18)
[2023-07-23 08:18] LABS: CREATININE 0.9 mg/dL (0.55-1.3); PHOSPHOROUS 3.1 mg/dL (2.5-4.9)
[2023-07-23 08:20] LABS: BILIRUBIN,TOTAL 0.6 mg/dL (0.2-1); TOT PROT 8.8 g/dl (6.4-8.2)
[2023-07-23] MEDS: TAMSULOSIN HCL 0.4 MG CAP PO SCH (08:55)
[2023-07-23] MEDS: LIDOCAINE 4% PATCH TP SCH (09:47)
[2023-07-23] MEDS: VANCOMYCIN/WATER FOR INJ (PEG) 1,000 MG/200 ML BAG IVPB SCH (13:33)
[2023-07-23] MEDS ORDERED: BENZOCAINE/MENTH/CETYLPYRD CL 1 EACH LOZENGE MM PRN (15:20)
[2023-07-23] MEDS: CEFTRIAXONE 2 GM in DEXTROSE 5%-WATER 100 ML IVPB SCH (15:58)
[2023-07-23] MEDS: NICOTINE 21 MG/24 HOURS TOPICAL PATCH TD SCH (15:58)
[2023-07-23] MEDS ORDERED: SENNOSIDES/DOCUSATE COMBO (SENNA PLUS) TABLET (UD) PO PRN (17:32)
[2023-07-23] MEDS ORDERED: QUEtiapine FUMARATE 50 MG TABLET ONE (20:57)
[2023-07-23] MEDS: DABIGATRAN ETEXILATE MESYLATE 150 MG CAPSULE PO SCH (21:13)
[2023-07-24] MEDS: ACETAMINOPHEN 1000 MG/100 ML BAG IVPB ONE (01:05)
[2023-07-24] MEDS ORDERED: KETOROLAC TROMETHAMINE 15 MG/ML VIAL IVPUSH ONE (01:50)
[2023-07-24] MEDS: KETOROLAC TROMETHAMINE 15 MG/ML VIAL IVPUSH ONE (03:55)
[2023-07-24 08:16] LABS: BASO % 0.4 % (0-2.0); EOS % 3.1 % (0-4.5); HEMATOCRIT 32.1 % (35.4-49); LYMPH % 24.4 % (8-40); MCH 27.9 pg (25.7-33.7); MCHC 34.3 g/dl (32.0-35.9); MEAN CELL VOLUME 81.2 fl (80-96); MEAN PLT VOLUME 8.2 fl (7.5-11.1); MONO % 8.5 % (3.8-10.2); NEUT % 63.6 % (42.8-82.8); PLATELET COUNT 221 10^3/uL (134-434); RBC 3.95 M/mm3 (4.00-5.60); RDW 16.4 % (11.9-15.9); WHITE BLOOD COUNT 4.7 K/mm3 (4.0-10.0)
[2023-07-24 08:34] LABS: POTASSIUM 4.4 mmol/L (3.5-5.1)
[2023-07-24 08:38] LABS: CALCIUM 9.6 mg/dL (8.5-10.1)
[2023-07-24 08:39] LABS: BLOOD UREA NITROGEN 12.5 mg/dL (7-18)
[2023-07-24] MEDS: ACETAMINOPHEN 1000 MG/100 ML BAG IVPB PRN (12:37)
[2023-07-24] MEDS ORDERED: QUEtiapine FUMARATE 50 MG TABLET ONE (20:48)
[2023-07-25] MEDS: ACETAMINOPHEN 1000 MG/100 ML BAG IVPB PRN (13:39)
[2023-07-25] MEDS ORDERED: QUEtiapine FUMARATE 50 MG TABLET ONE (21:59)
[2023-07-26 09:54] LABS: POTASSIUM 4.1 mmol/L (3.5-5.1)
[2023-07-26 09:59] LABS: CALCIUM 9.1 mg/dL (8.5-10.1)
[2023-07-26 10:02] LABS: CREATININE 0.9 mg/dL (0.55-1.3)
[2023-07-26 10:04] LABS: BLOOD UREA NITROGEN 13.7 mg/dL (7-18)
[2023-07-26] MEDS: VITAMIN B COMP W-C 1 EA TABLET (NEPHRO-VITE) PO SCH (13:48)
[2023-07-26] MEDS: ACETAMINOPHEN 1000 MG/100 ML BAG IVPB PRN (14:39)
[2023-07-26] MEDS: LIDOCAINE 4% PATCH TP SCH (14:40)
[2023-07-26] MEDS: ACETAMINOPHEN 1000 MG/100 ML BAG IVPB ONE (14:40)
[2023-07-26] MEDS ORDERED: QUEtiapine FUMARATE 50 MG TABLET ONE (20:56)
[2023-07-27 08:37] LABS: HEMATOCRIT 31.6 % (35.4-49); HEMOGLOBIN 10.6 GM/dL (11.7-16.9); MCH 27.5 pg (25.7-33.7); MCHC 33.7 g/dl (32.0-35.9); MEAN CELL VOLUME 81.7 fl (80-96); RBC 3.86 M/mm3 (4.00-5.60); WHITE BLOOD COUNT 4.7 K/mm3 (4.0-10.0)
[2023-07-27 08:38] LABS: BASO % 0.4 % (0-2.0); EOS % 4.2 % (0-4.5); LYMPH % 29.5 % (8-40); MEAN PLT VOLUME 7.9 fl (7.5-11.1); MONO % 8.2 % (3.8-10.2); NEUT % 57.7 % (42.8-82.8); PLATELET COUNT 227 10^3/uL (134-434); RDW 16.4 % (11.9-15.9)
[2023-07-27 08:56] LABS: POTASSIUM 4.5 mmol/L (3.5-5.1)
[2023-07-27 09:01] LABS: BLOOD UREA NITROGEN 16.5 mg/dL (7-18); CALCIUM 9.2 mg/dL (8.5-10.1)
[2023-07-27 09:02] LABS: ALBUMIN 3.2 g/dl (3.4-5.0)
[2023-07-27 09:05] LABS: CREATININE 0.9 mg/dL (0.55-1.3)
[2023-07-27 09:06] LABS: BILIRUBIN,TOTAL 0.4 mg/dL (0.2-1); TOT PROT 8.3 g/dl (6.4-8.2)
[2023-07-27] MEDS: ACETAMINOPHEN 1000 MG/100 ML BAG IVPB ONE (18:58)
[2023-07-27] MEDS ORDERED: QUEtiapine FUMARATE 50 MG TABLET ONE (21:09)
[2023-07-28] MEDS: ACETAMINOPHEN 325 MG TABLET (FP) PO PRN (05:49)
[2023-07-28 09:27] LABS: HEMATOCRIT 33.3 % (35.4-49); HEMOGLOBIN 10.9 GM/dL (11.7-16.9); MCHC 32.7 g/dl (32.0-35.9); MEAN CELL VOLUME 82.7 fl (80-96); MEAN PLT VOLUME 7.8 fl (7.5-11.1); PLATELET COUNT 214 10^3/uL (134-434); RBC 4.03 M/mm3 (4.00-5.60); RDW 16.4 % (11.9-15.9); WHITE BLOOD COUNT 5.1 K/mm3 (4.0-10.0)
[2023-07-28 09:47] LABS: POTASSIUM 3.9 mmol/L (3.5-5.1)
[2023-07-28 10:07] LABS: CALCIUM 9.3 mg/dL (8.5-10.1)
[2023-07-28 10:08] LABS: ALBUMIN 3.3 g/dl (3.4-5.0); BLOOD UREA NITROGEN 20.2 mg/dL (7-18)
[2023-07-28 10:12] LABS: BILIRUBIN,TOTAL 0.4 mg/dL (0.2-1)
[2023-07-28 10:13] LABS: TOT PROT 8.4 g/dl (6.4-8.2)
[2023-07-28] MEDS: oxyCODONE HCL 5 MG TABLET PO PRN (15:46)
[2023-07-28] MEDS ORDERED: QUEtiapine FUMARATE 50 MG TABLET ONE (21:30)
[2023-07-29] MEDS: VANCOMYCIN/WATER FOR INJ (PEG) 1,000 MG/200 ML BAG IVPB SCH (10:09)
[2023-07-29] MEDS ORDERED: QUEtiapine FUMARATE 50 MG TABLET ONE (20:39)
[2023-07-29] MEDS: KETOROLAC TROMETHAMINE 15 MG/ML VIAL IM ONE (20:55)
[2023-07-30] MEDS: MAGNESIUM HYDROX 2400MG/30ML ORAL SUSPENSION 30 ML CUP PO PRN (08:59)
[2023-07-30] MEDS: KETOROLAC TROMETHAMINE 15 MG/ML VIAL IVPUSH PRN (14:27)
[2023-07-31 08:20] LABS: HEMATOCRIT 32.2 % (35.4-49); HEMOGLOBIN 10.9 GM/dL (11.7-16.9); MCH 27.6 pg (25.7-33.7); MCHC 33.9 g/dl (32.0-35.9); MEAN CELL VOLUME 81.4 fl (80-96); MEAN PLT VOLUME 7.7 fl (7.5-11.1); PLATELET COUNT 211 10^3/uL (134-434); RBC 3.95 M/mm3 (4.00-5.60); RDW 16.8 % (11.9-15.9); WHITE BLOOD COUNT 3.6 K/mm3 (4.0-10.0)
[2023-07-31 08:35] LABS: POTASSIUM 4.4 mmol/L (3.5-5.1)
[2023-07-31 08:37] LABS: CALCIUM 9.2 mg/dL (8.5-10.1)
[2023-07-31 08:38] LABS: ALBUMIN 3.3 g/dl (3.4-5.0); BLOOD UREA NITROGEN 28.2 mg/dL (7-18)
[2023-07-31 08:42] LABS: BILIRUBIN,TOTAL 1.3 mg/dL (0.2-1); TOT PROT 8.1 g/dl (6.4-8.2)
[2023-07-31] MEDS ORDERED: NALOXONE HCL 0.4 MG/ML VIAL IVPUSH PRN (10:55)
[2023-07-31] MEDS: ACETAMINOPHEN 325 MG TABLET (FP) PO PRN (19:44)
[2023-08-01 09:02] LABS: HEMATOCRIT 32.2 % (35.4-49); HEMOGLOBIN 10.7 GM/dL (11.7-16.9); MCH 27.4 pg (25.7-33.7); MCHC 33.4 g/dl (32.0-35.9); MEAN CELL VOLUME 82.1 fl (80-96); MEAN PLT VOLUME 7.9 fl (7.5-11.1); PLATELET COUNT 228 10^3/uL (134-434); RBC 3.92 M/mm3 (4.00-5.60); RDW 16.4 % (11.9-15.9); WHITE BLOOD COUNT 4.8 K/mm3 (4.0-10.0)
[2023-08-01 09:38] LABS: CALCIUM 9.4 mg/dL (8.5-10.1)
[2023-08-01 09:39] LABS: ALBUMIN 3.4 g/dl (3.4-5.0); BLOOD UREA NITROGEN 28.4 mg/dL (7-18)
[2023-08-01 09:40] LABS: POTASSIUM 4.5 mmol/L (3.5-5.1)
[2023-08-01 09:42] LABS: CREATININE 0.9 mg/dL (0.55-1.3)
[2023-08-01 09:44] LABS: BILIRUBIN,TOTAL 0.3 mg/dL (0.2-1); TOT PROT 8.4 g/dl (6.4-8.2)
[2023-08-02 10:39] LABS: HEMATOCRIT 32.4 % (35.4-49); HEMOGLOBIN 10.9 GM/dL (11.7-16.9); MCH 27.4 pg (25.7-33.7); MCHC 33.6 g/dl (32.0-35.9); MEAN CELL VOLUME 81.7 fl (80-96); MEAN PLT VOLUME 7.9 fl (7.5-11.1); PLATELET COUNT 250 10^3/uL (134-434); RBC 3.97 M/mm3 (4.00-5.60); RDW 16.4 % (11.9-15.9); WHITE BLOOD COUNT 4.6 K/mm3 (4.0-10.0)
[2023-08-02 10:57] LABS: POTASSIUM 4.4 mmol/L (3.5-5.1)
[2023-08-02 11:11] LABS: ALBUMIN 3.5 g/dl (3.4-5.0); BLOOD UREA NITROGEN 31.8 mg/dL (7-18); CALCIUM 9.5 mg/dL (8.5-10.1)
[2023-08-02 11:16] LABS: BILIRUBIN,TOTAL 0.9 mg/dL (0.2-1); TOT PROT 8.4 g/dl (6.4-8.2)
[2023-08-02 11:52] LABS: ERYTHROCYTE SEDIMENTATION RATE 87 mm/hr (0-20)
[2023-08-02] MEDS: VANCOMYCIN/WATER FOR INJ (PEG) 1,000 MG/200 ML BAG IVPB SCH (14:21)
[2023-08-03] MEDS: ACETAMINOPHEN 500 MG TABLET (FP) PO SCH (08:09)
[2023-08-03] MEDS: MULTIVIT-MINERALS ORAL LIQUID PO SCH (09:38)
[2023-08-03] MEDS: GABAPENTIN 400 MG CAPSULE PO SCH (14:10)
[2023-08-03 16:52] VITALS: BMI 22.5
[2023-08-04 10:33] LABS: HEMATOCRIT 32.8 % (35.4-49); MCH 27.6 pg (25.7-33.7); MCHC 33.6 g/dl (32.0-35.9); MEAN CELL VOLUME 82.1 fl (80-96); MEAN PLT VOLUME 8.1 fl (7.5-11.1); PLATELET COUNT 246 10^3/uL (134-434); RDW 16.1 % (11.9-15.9); WHITE BLOOD COUNT 4.3 K/mm3 (4.0-10.0)
[2023-08-04 10:49] LABS: POTASSIUM 4.5 mmol/L (3.5-5.1)
[2023-08-04 10:52] LABS: CALCIUM 9.5 mg/dL (8.5-10.1)
[2023-08-04 10:53] LABS: ALBUMIN 3.5 g/dl (3.4-5.0); MAGNESIUM 2.2 mg/dL (1.8-2.4)
[2023-08-04 10:57] LABS: BILIRUBIN,TOTAL 0.3 mg/dL (0.2-1)
[2023-08-04 10:58] LABS: TOT PROT 8.3 g/dl (6.4-8.2)
[2023-08-04 11:16] LABS: ERYTHROCYTE SEDIMENTATION RATE 70 mm/hr (0-20)
[2023-08-05 09:58] LABS: HEMATOCRIT 32.5 % (35.4-49); HEMOGLOBIN 10.9 GM/dL (11.7-16.9); MCH 27.5 pg (25.7-33.7); MCHC 33.6 g/dl (32.0-35.9); MEAN PLT VOLUME 7.9 fl (7.5-11.1); PLATELET COUNT 225 10^3/uL (134-434); RBC 3.96 M/mm3 (4.00-5.60); RDW 16.5 % (11.9-15.9); WHITE BLOOD COUNT 3.6 K/mm3 (4.0-10.0)
[2023-08-05 10:16] LABS: POTASSIUM 4.1 mmol/L (3.5-5.1)
[2023-08-05 10:20] LABS: ALBUMIN 3.4 g/dl (3.4-5.0); BLOOD UREA NITROGEN 32.6 mg/dL (7-18); CALCIUM 9.3 mg/dL (8.5-10.1)
[2023-08-05 10:25] LABS: BILIRUBIN,TOTAL 0.4 mg/dL (0.2-1); TOT PROT 8.4 g/dl (6.4-8.2)
[2023-08-05 10:51] LABS: ERYTHROCYTE SEDIMENTATION RATE 61 mm/hr (0-20)
[2023-08-06 09:24] LABS: HEMATOCRIT 33.8 % (35.4-49); HEMOGLOBIN 11.1 GM/dL (11.7-16.9); MCH 27.4 pg (25.7-33.7); MCHC 32.9 g/dl (32.0-35.9); MEAN CELL VOLUME 83.2 fl (80-96); MEAN PLT VOLUME 7.9 fl (7.5-11.1); PLATELET COUNT 247 10^3/uL (134-434); RBC 4.07 M/mm3 (4.00-5.60); RDW 16.4 % (11.9-15.9); WHITE BLOOD COUNT 3.9 K/mm3 (4.0-10.0)
[2023-08-06 09:54] LABS: POTASSIUM 4.3 mmol/L (3.5-5.1)
[2023-08-06 10:07] LABS: ERYTHROCYTE SEDIMENTATION RATE 70 mm/hr (0-20)
[2023-08-06 10:14] LABS: ALBUMIN 3.6 g/dl (3.4-5.0); BLOOD UREA NITROGEN 31.7 mg/dL (7-18)
[2023-08-06 10:19] LABS: BILIRUBIN,TOTAL 0.4 mg/dL (0.2-1)
[2023-08-06 10:21] LABS: CALCIUM 10.1 mg/dL (8.5-10.1)
[2023-08-06] MEDS: METHYL SALICYLATE/MENTHOL OINT 30 GM TUBE TP SCH (14:40)
[2023-08-07 10:04] LABS: HEMATOCRIT 34.4 % (35.4-49); HEMOGLOBIN 11.6 GM/dL (11.7-16.9); MCH 27.8 pg (25.7-33.7); MCHC 33.7 g/dl (32.0-35.9); MEAN CELL VOLUME 82.6 fl (80-96); PLATELET COUNT 263 10^3/uL (134-434); RBC 4.16 M/mm3 (4.00-5.60); RDW 16.3 % (11.9-15.9); WHITE BLOOD COUNT 4.7 K/mm3 (4.0-10.0)
[2023-08-07] MEDS: MULTIVITAMINS THER W-MINERALS COMBO TABLET (FP) PO SCH (10:16)
[2023-08-07 10:28] LABS: POTASSIUM 4.1 mmol/L (3.5-5.1)
[2023-08-07 10:30] LABS: BLOOD UREA NITROGEN 32.7 mg/dL (7-18); CALCIUM 10.1 mg/dL (8.5-10.1)
[2023-08-08] MEDS: VANCOMYCIN/WATER FOR INJ (PEG) 1,000 MG/200 ML BAG IVPB SCH (11:23)
[2023-08-09] MEDS: KETOROLAC TROMETHAMINE 15 MG/ML VIAL IVPUSH ONE (10:04)
[2023-08-10 10:09] LABS: HEMATOCRIT 32.2 % (35.4-49); HEMOGLOBIN 10.7 GM/dL (11.7-16.9); MCH 27.8 pg (25.7-33.7); MCHC 33.2 g/dl (32.0-35.9); MEAN CELL VOLUME 83.9 fl (80-96); MEAN PLT VOLUME 8.1 fl (7.5-11.1); PLATELET COUNT 209 10^3/uL (134-434); RBC 3.84 M/mm3 (4.00-5.60); RDW 15.9 % (11.9-15.9); WHITE BLOOD COUNT 3.8 K/mm3 (4.0-10.0)
[2023-08-10 10:25] LABS: POTASSIUM 4.3 mmol/L (3.5-5.1)
[2023-08-10 10:33] LABS: ALBUMIN 3.6 g/dl (3.4-5.0); BLOOD UREA NITROGEN 37.8 mg/dL (7-18)
[2023-08-10 10:34] LABS: BILIRUBIN,TOTAL 0.3 mg/dL (0.2-1)
[2023-08-10 10:35] LABS: CALCIUM 9.5 mg/dL (8.5-10.1); TOT PROT 8.2 g/dl (6.4-8.2)
[2023-08-10] MEDS ORDERED: GABAPENTIN 400 MG CAPSULE PO SCH (11:04)
[2023-08-10] MEDS: KETOROLAC TROMETHAMINE 15 MG/ML VIAL IVPUSH ONE (11:12)
[2023-08-10] MEDS: GABAPENTIN 400 MG, GABAPENTIN 100 MG PO SCH (13:27)
[2023-08-13 09:16] LABS: BASO % 0.5 % (0-2.0); EOS % 4.3 % (0-4.5); HEMATOCRIT 36.6 % (35.4-49); HEMOGLOBIN 12.1 GM/dL (11.7-16.9); LYMPH % 40.4 % (8-40); MCH 27.6 pg (25.7-33.7); MCHC 33.1 g/dl (32.0-35.9); MEAN CELL VOLUME 83.3 fl (80-96); MEAN PLT VOLUME 8.2 fl (7.5-11.1); MONO % 8.4 % (3.8-10.2); NEUT % 46.4 % (42.8-82.8); PLATELET COUNT 264 10^3/uL (134-434); WHITE BLOOD COUNT 4.8 K/mm3 (4.0-10.0)
[2023-08-13 09:19] LABS: POTASSIUM 4.6 mmol/L (3.5-5.1)
[2023-08-13 09:30] LABS: CALCIUM 10.2 mg/dL (8.5-10.1)
[2023-08-13 09:31] LABS: BLOOD UREA NITROGEN 36.6 mg/dL (7-18)
[2023-08-13 09:34] LABS: CREATININE 1.1 mg/dL (0.55-1.3)
[2023-08-13 09:36] LABS: BILIRUBIN,TOTAL 0.4 mg/dL (0.2-1); TOT PROT 9.3 g/dl (6.4-8.2)
[2023-08-13] MEDS ORDERED: VANCOMYCIN 1 GM PREMIX - 1 GM/200 ML BAG IVPB SCH (11:45)
[2023-08-13] MEDS ORDERED: VANCOMYCIN/WATER FOR INJ (PEG) 1 GM/200 ML BAG IVPB SCH (11:45)
[2023-08-13] MEDS: VANCOMYCIN/WATER FOR INJ (PEG) 1,000 MG/200 ML BAG IVPB SCH (13:59)
[2023-08-13 16:45] LABS: MAGNESIUM 2.2 mg/dL (1.8-2.4)
[2023-08-13 16:48] LABS: PHOSPHOROUS 4.8 mg/dL (2.5-4.9)
[2023-08-13] MEDS: VANCOMYCIN 1 GM PREMIX - 1 GM/200 ML BAG IVPB SCH (23:04)
[2023-08-15] MEDS: VANCOMYCIN/WATER FOR INJ (PEG) 750 MG/150 ML BAG IVPB SCH (11:55)
[2023-08-15] MEDS: VANCOMYCIN 750 MG in DEXTROSE 5%-WATER - 150 ML IVPB SCH (15:43)
[2023-08-16 09:08] LABS: HEMATOCRIT 32.8 % (35.4-49); HEMOGLOBIN 11.1 GM/dL (11.7-16.9); MCH 27.9 pg (25.7-33.7); MCHC 33.8 g/dl (32.0-35.9); MEAN CELL VOLUME 82.5 fl (80-96); MEAN PLT VOLUME 8.3 fl (7.5-11.1); PLATELET COUNT 212 10^3/uL (134-434); RBC 3.98 M/mm3 (4.00-5.60); RDW 15.9 % (11.9-15.9); WHITE BLOOD COUNT 3.8 K/mm3 (4.0-10.0)
[2023-08-16 09:33] LABS: POTASSIUM 4.8 mmol/L (3.5-5.1)
[2023-08-16 09:42] LABS: CALCIUM 9.9 mg/dL (8.5-10.1)
[2023-08-16 09:43] LABS: ALBUMIN 3.8 g/dl (3.4-5.0); BLOOD UREA NITROGEN 37.2 mg/dL (7-18)
[2023-08-16 09:47] LABS: BILIRUBIN,TOTAL 0.4 mg/dL (0.2-1); TOT PROT 8.6 g/dl (6.4-8.2)
[2023-08-16] MEDS: VANCOMYCIN/WATER FOR INJ (PEG) 750 MG/150 ML BAG IVPB SCH (11:45)
[2023-08-17 09:52] LABS: HEMATOCRIT 33.1 % (35.4-49); HEMOGLOBIN 11.1 GM/dL (11.7-16.9); MCH 27.9 pg (25.7-33.7); MCHC 33.6 g/dl (32.0-35.9); MEAN CELL VOLUME 83.2 fl (80-96); MEAN PLT VOLUME 8.6 fl (7.5-11.1); PLATELET COUNT 204 10^3/uL (134-434); RBC 3.97 M/mm3 (4.00-5.60); RDW 15.6 % (11.9-15.9); WHITE BLOOD COUNT 3.7 K/mm3 (4.0-10.0)
[2023-08-17 10:08] LABS: POTASSIUM 4.6 mmol/L (3.5-5.1)
[2023-08-17 10:11] LABS: ALBUMIN 3.8 g/dl (3.4-5.0); CALCIUM 9.5 mg/dL (8.5-10.1)
[2023-08-17 10:16] LABS: BILIRUBIN,TOTAL 0.4 mg/dL (0.2-1); TOT PROT 8.8 g/dl (6.4-8.2)
[2023-08-18] MEDS ORDERED: methaDONE HCL 40 MG DISPERSABLE TABLET PO SCH (06:00)
[2023-08-18] MEDS ORDERED: CEFTRIAXONE 2 GM-D5W BAG 2 GM/50 ML BAG IVPB SCH (10:00)
[2023-08-18] MEDS: CEFTRIAXONE 2 GM in DEXTROSE 5%-WATER 100 ML IVPB SCH (10:47)
[2023-08-19] MEDS: ACETAMINOPHEN 1000 MG/100 ML BAG IVPB PRN (14:18)
[2023-08-20 08:59] LABS: BASO % 0.4 % (0-2.0); HEMATOCRIT 34.2 % (35.4-49); HEMOGLOBIN 11.7 GM/dL (11.7-16.9); LYMPH % 31.5 % (8-40); MCH 28.1 pg (25.7-33.7); MCHC 34.1 g/dl (32.0-35.9); MEAN CELL VOLUME 82.6 fl (80-96); MEAN PLT VOLUME 7.9 fl (7.5-11.1); MONO % 9.7 % (3.8-10.2); NEUT % 54.4 % (42.8-82.8); PLATELET COUNT 176 10^3/uL (134-434); RBC 4.15 M/mm3 (4.00-5.60); RDW 15.8 % (11.9-15.9)
[2023-08-20 10:20] LABS: BILIRUBIN,TOTAL 0.4 mg/dL (0.2-1); BLOOD UREA NITROGEN 32.4 mg/dL (7-18); CALCIUM 9.9 mg/dL (8.5-10.1); CREATININE 1.1 mg/dL (0.55-1.3); POTASSIUM 4.3 mmol/L (3.5-5.1)
[2023-08-20] MEDS: ACETAMINOPHEN 1000 MG/100 ML BAG IVPB ONE (21:40)
[2023-08-21] MEDS: ACETAMINOPHEN 325 MG TABLET (FP) PO ONE (06:13)
[2023-08-21] MEDS: ACETAMINOPHEN 325 MG TABLET (FP) PO PRN ×2 (15:28→16:26)
[2023-08-22] MEDS: ACETAMINOPHEN 500 MG TABLET (FP) PO PRN (05:56)
[2023-08-22 09:55] LABS: POTASSIUM 4.2 mmol/L (3.5-5.1)
[2023-08-22 09:56] LABS: CALCIUM 9.6 mg/dL (8.5-10.1)
[2023-08-22 09:57] LABS: BLOOD UREA NITROGEN 30.3 mg/dL (7-18)
[2023-08-23 09:16] LABS: POTASSIUM 4.4 mmol/L (3.5-5.1)
[2023-08-23 09:17] LABS: CALCIUM 9.3 mg/dL (8.5-10.1)
[2023-08-23 09:18] LABS: BLOOD UREA NITROGEN 30.3 mg/dL (7-18)
[2023-08-25 10:17] LABS: BLOOD UREA NITROGEN 30.8 mg/dL (7-18); CALCIUM 9.5 mg/dL (8.5-10.1); CREATININE 1.1 mg/dL (0.55-1.3); POTASSIUM 4.2 mmol/L (3.5-5.1)
[2023-08-27 10:37] LABS: CALCIUM 9.6 mg/dL (8.5-10.1)
[2023-08-27 10:39] LABS: BLOOD UREA NITROGEN 30.6 mg/dL (7-18)
[2023-08-28] MEDS: VANCOMYCIN/WATER FOR INJ (PEG) 1,000 MG/200 ML BAG IVPB SCH (23:18)
[2023-08-29 11:23] LABS: BLOOD UREA NITROGEN 32.9 mg/dL (7-18); CALCIUM 9.4 mg/dL (8.5-10.1); CHLORIDE 107 mmol/L (98-107); CO2 25 mmol/L (21-32); CREATININE 1.2 mg/dL (0.55-1.3); GLUCOSE,RANDOM 105 mg/dL (74-106); POTASSIUM 4.2 mmol/L (3.5-5.1); SODIUM 137 mmol/L (136-145)
[2023-08-31 11:54] LABS: CALCIUM 9.3 mg/dL (8.5-10.1); POTASSIUM 4.3 mmol/L (3.5-5.1)
[2023-08-31 11:55] LABS: BLOOD UREA NITROGEN 29.5 mg/dL (7-18)
[2023-08-31 19:31] VITALS: RESP 18
[2023-09-02 10:28] LABS: POTASSIUM 4.3 mmol/L (3.5-5.1)
[2023-09-02 10:31] LABS: BLOOD UREA NITROGEN 36.5 mg/dL (7-18); CALCIUM 8.9 mg/dL (8.5-10.1)
[2023-09-02 10:34] LABS: CREATININE 1.1 mg/dL (0.55-1.3)
[2023-09-03 06:28] VITALS: BP 111/70; PULSE 70; TEMP 98.6
== END 2023-09-03 06:45 | disposition home or self-care (01) | DRG 347 ==
LOC: JER 18:36 → JERBED 22:40 → J7W 07-23 04:28 → J6S 07-27 12:32 → J7W 07-27 12:47 → J5S 07-30 20:20
PROVIDERS: ADMIT Internal Medicine; ATTEND Internal Medicine
DX: M46.46 Discitis, unspecified, lumbar region (principal); F11.20 Opioid dependence, uncomplicated; I48.91 Unspecified atrial fibrillation; G62.9 Polyneuropathy, unspecified; F17.210 Nicotine dependence, cigarettes, uncomplicated; D50.9 Iron deficiency anemia, unspecified; N40.0 Benign prostatic hyperplasia without lower urinary tract symptoms; F14.10 Cocaine abuse, uncomplicated; Z86.718 Personal history of other venous thrombosis and embolism; Z79.01 Long term (current) use of anticoagulants
CPT/HCPCS: 36415; 72132-TC; 72149-TC; 80048; 80053; 82550; 83735; 84100; 85025; 85027; 85610; 85651; 85730; 86140; 86850; 86900; 86901; 87040; 93005; 93010; 97116-GP; 97162-GP; 99283-25; 99285-25; G0480; J0131; J3370; Q9967

== ENCOUNTER 2023-10-02 08:19 | Inpatient (IN) | payer OTHER ==
[2023-10-02 09:11] VITALS: BMI 21.3
[2023-10-02] MEDS ORDERED: BENZOCAINE/MENTHOL (CHLORASEPTIC ) LOZENGE MM PRN (09:28)
[2023-10-02] MEDS ORDERED: NICOTINE POLACRILEX 2 MG LOZENGE BC PRN (09:28)
[2023-10-02] MEDS ORDERED: NALOXONE HCL 0.4 MG/ML VIAL IM PRN (09:28)
[2023-10-02] MEDS ORDERED: LOPERAMIDE HCL 2 MG CAPSULE PO PRN (09:28)
[2023-10-02] MEDS ORDERED: DOCUSATE SODIUM 100 MG CAPSULE (FP) PO PRN (09:28)
[2023-10-02] MEDS ORDERED: NALOXONE (NARCAN) HCL 4 MG/0.1 ML SPRAY NS PRN (09:28)
[2023-10-02] MEDS ORDERED: POLYETHYLENE GLYCOL (HEALTHYLAX) 3350 17 GM PACKET PO PRN (09:28)
[2023-10-02] MEDS ORDERED: P-EPHED 60MG/TRIPROLIDI 2.5MG TABLET PO PRN (09:28)
[2023-10-02] MEDS ORDERED: BENZONATATE 200 MG CAPSULE PO PRN (09:28)
[2023-10-02] MEDS ORDERED: MAG HYDROX/AL HYDROX/SIMETH 30 ML UNIT-DOSE CUP PO PRN (09:28)
[2023-10-02] MEDS ORDERED: BISACODYL 5 MG TABLET.DR (FP) PO PRN (09:28)
[2023-10-02] MEDS ORDERED: MAGNESIUM HYDROX 2400MG/30ML ORAL SUSPENSION 30 ML CUP PO PRN (09:28)
[2023-10-02] MEDS ORDERED: guaiFENesin 600 MG TABLET.ER (FP) PO PRN (09:28)
[2023-10-02] MEDS ORDERED: NICOTINE 21 MG/24 HOURS TOPICAL PATCH ONE (10:40)
[2023-10-02] MEDS ORDERED: PRENATAL VITAMINS W/ FOLIC ACID TABLET (FP) PO ONE (10:40)
[2023-10-02] MEDS: NICOTINE 21 MG/24 HOURS TOPICAL PATCH TD SCH (10:42)
[2023-10-02] MEDS: PRENATAL VITAMINS W/ FOLIC ACID TABLET (FP) PO SCH (10:42)
[2023-10-02] MEDS: GABAPENTIN 400 MG CAPSULE PO SCH (11:06)
[2023-10-02] MEDS: DABIGATRAN ETEXILATE MESYLATE 150 MG CAPSULE PO SCH ×3 (11:06→22:48)
[2023-10-02] MEDS: MELATONIN 5 MG TABLETS PO SCH (21:52)
[2023-10-02] MEDS: METHOCARBAMOL 500 MG TABLET PO PRN (21:52)
[2023-10-02] MEDS: THIAMINE 100 MG TABLET PO SCH (21:52)
[2023-10-02] MEDS: QUEtiapine FUMARATE 100 MG TABLET (FP) PO SCH (21:53)
[2023-10-02] MEDS: GABAPENTIN 100 MG CAPSULE PO SCH (21:53)
[2023-10-02] MEDS: ACETAMINOPHEN 500 MG TABLET (FP) PO PRN (21:56)
[2023-10-03] MEDS ORDERED: methaDONE HCL 10 MG TABLET PO SCH (07:00)
[2023-10-03] MEDS: TAMSULOSIN HCL 0.4 MG CAP PO SCH (07:35)
[2023-10-03 08:50] LABS: CHLORIDE 107 mmol/L (98-107); POTASSIUM 3.9 mmol/L (3.5-5.1); SODIUM 140 mmol/L (136-145)
[2023-10-03 08:53] LABS: ALBUMIN 3.5 g/dl (3.4-5.0); ANION GAP 6 mmol/L (4-13); BLOOD UREA NITROGEN 16.6 mg/dL (7-18); CALCIUM 9.5 mg/dL (8.5-10.1); CO2 27 mmol/L (21-32)
[2023-10-03 08:54] LABS: GLUCOSE,RANDOM 93 mg/dL (74-106)
[2023-10-03 08:56] LABS: SGPT/ALT 22 U/L (13-61)
[2023-10-03 08:57] LABS: SGOT/AST 28 U/L (15-37)
[2023-10-03 08:58] LABS: BILIRUBIN,TOTAL 0.4 mg/dL (0.2-1)
[2023-10-03 09:02] LABS: ALK PHOS 86 U/L (45-117)
[2023-10-03] MEDS: NICOTINE POLACRILEX 2 MG GUM BUC PRN (10:25)
[2023-10-04] MEDS: GABAPENTIN 400 MG CAPSULE PO SCH (10:08)
[2023-10-07 09:28] VITALS: BP 102/68; PULSE 79; RESP 18; TEMP 98.2
== END 2023-10-07 23:40 | disposition short-term general hospital (02) | DRG 772 ==
LOC: YASAS 08:19 → Y3NR 10:19 → Y3E 10-03 11:48
PROVIDERS: ADMIT Allergy & Immunology; ATTEND Psychiatry & Neurology Pain Medicine
PROC: HZ42ZZZ Group Counseling for Substance Abuse Treatment, Cognitive-Behavioral (ICD-10-PCS; principal; 2023-10-02)
DX: F14.20 Cocaine dependence, uncomplicated (principal); F11.20 Opioid dependence, uncomplicated; F17.210 Nicotine dependence, cigarettes, uncomplicated; F32.9 Major depressive disorder, single episode, unspecified; F43.10 Post-traumatic stress disorder, unspecified; F19.982 Other psychoactive substance use, unspecified with psychoactive substance-induced sleep disorder; K21.9 Gastro-esophageal reflux disease without esophagitis; J45.909 Unspecified asthma, uncomplicated; M54.9 Dorsalgia, unspecified; M19.90 Unspecified osteoarthritis, unspecified site; M54.59 Other low back pain; G89.29 Other chronic pain; I83.90 Asymptomatic varicose veins of unspecified lower extremity; N40.0 Benign prostatic hyperplasia without lower urinary tract symptoms; M51.26 Other intervertebral disc displacement, lumbar region; Z86.19 Personal history of other infectious and parasitic diseases; Z86.718 Personal history of other venous thrombosis and embolism; Z91.51 Personal history of suicidal behavior; Z56.0 Unemployment, unspecified; Z59.01 Sheltered homelessness
CPT/HCPCS: 36415; 80053; 80305; 80307; 86780; 87811

== ENCOUNTER 2023-10-07 12:10 | Observation (INO) | payer OTHER ==
[2023-10-07 12:31] VITALS: BMI 21.7
[2023-10-07] MEDS ORDERED: ACETAMINOPHEN 325 MG TABLET (FP) ONE (13:51)
[2023-10-07] MEDS ORDERED: METHOCARBAMOL 500 MG TABLET ONE (13:51)
[2023-10-07] MEDS ORDERED: LIDOCAINE 4% PATCH TP ONE (13:52)
[2023-10-07] MEDS: ACETAMINOPHEN 500 MG TABLET (FP) PO ONE (13:55)
[2023-10-07] MEDS: METHOCARBAMOL 500 MG TABLET PO ONE (13:56)
[2023-10-07] MEDS: LIDOCAINE 5% TOPICAL PATCH TP ONE (13:56)
[2023-10-07 15:21] LABS: URINE APPEARANCE CLEAR; URINE BILIRUBIN NEGATIVE (NEGATIVE); URINE COLOR YELLOW; URINE GLUCOSE (UA) NEGATIVE (NEGATIVE); URINE KETONE NEGATIVE (NEGATIVE); URINE LEUK ESTERASE NEGATIVE (NEGATIVE); URINE NITRITE NEGATIVE (NEGATIVE); URINE PROTEIN NEGATIVE (NEGATIVE); URINE UROBILINOGEN 0.2 mg/dL (0.2-1.0)
[2023-10-07 15:30] LABS: BASO % 0.5 % (0-2.0); EOS % 2.9 % (0-4.5); HEMATOCRIT 33.5 % (35.4-49); HEMOGLOBIN 11.2 GM/dL (11.7-16.9); MCH 28.2 pg (25.7-33.7); MCHC 33.6 g/dl (32.0-35.9); MEAN CELL VOLUME 83.9 fl (80-96); MEAN PLT VOLUME 8.1 fl (7.5-11.1); MONO % 9.9 % (3.8-10.2); NEUT % 53.7 % (42.8-82.8); PLATELET COUNT 192 10^3/uL (134-434); RBC 3.99 M/mm3 (4.00-5.60); RDW 14.6 % (11.9-15.9); WHITE BLOOD COUNT 4.2 K/mm3 (4.0-10.0)
[2023-10-07 15:44] LABS: POTASSIUM 5.4 mmol/L (3.5-5.1)
[2023-10-07 15:46] LABS: ALBUMIN 3.4 g/dl (3.4-5.0); BLOOD UREA NITROGEN 18.2 mg/dL (7-18); CALCIUM 9.4 mg/dL (8.5-10.1)
[2023-10-07 15:51] LABS: BILIRUBIN,TOTAL 0.4 mg/dL (0.2-1); TOT PROT 8.2 g/dl (6.4-8.2)
[2023-10-07] MEDS ORDERED: PIPERACILLIN/TAZOB 3.375 GM 3.375 GM/50 ML BAG IVPB ONE (18:55)
[2023-10-07] MEDS: PIPERACILLIN/TAZOB 3.375 GM 3.375 GM in DEXTROSE 5%-WATER - 50 ML IVPB ONE (18:58)
[2023-10-07] MEDS ORDERED: VANCOMYCIN 1 GRAM (PRE-DOCKED) 1,000 MG/250 ML BAG IVPB ONE (19:54)
[2023-10-07] MEDS: VANCOMYCIN 1,000 MG in DEXTROSE 5%-WATER - 250 ML IVPB ONE (19:58)
[2023-10-07] MEDS ORDERED: MORPHINE SULFATE 2 MG/ML SYRINGE IVPUSH PRN (20:20)
[2023-10-07] MEDS ORDERED: POLYETHYLENE GLYCOL (HEALTHYLAX) 3350 17 GM PACKET PO PRN (20:20)
[2023-10-07] MEDS ORDERED: ONDANSETRON 4 MG/2 ML VIAL IVPUSH PRN (20:20)
[2023-10-07] MEDS: LACTATED RINGERS SOLUTION 1,000 ML/1,000 ML INFUS.BAG IV SCH (20:32)
[2023-10-07] MEDS ORDERED: ACETAMINOPHEN INJECTION 100 ML IVPB ONE (21:03)
[2023-10-07] MEDS: ACETAMINOPHEN 1000 MG/100 ML BAG IVPB PRN (21:15)
[2023-10-07] MEDS ORDERED: LIDOCAINE PATCH REMOVAL MC ONE (22:00)
[2023-10-07 22:06] LABS: URINE BARBITURATES NEGATIVE (NEGATIVE); URINE BENZODIAZEPINES NEGATIVE (NEGATIVE)
[2023-10-07 22:07] LABS: OPIATES, URI NEGATIVE (NEGATIVE); PHENCYCLIDINE,URINE NEGATIVE (NEGATIVE)
[2023-10-07 22:11] LABS: COCAINE, UR POSITIVE (NEGATIVE); METHADONE, UR POSITIVE (NEGATIVE); URINE AMPHETAMINES NEGATIVE (NEGATIVE)
[2023-10-07] MEDS ORDERED: ACETAMINOPHEN 500 MG TABLET (FP) PO PRN (23:20)
[2023-10-08] MEDS: LIDOCAINE PATCH REMOVAL MC ONE (01:00)
[2023-10-08] MEDS ORDERED: PIPERACILLIN/TAZOB 4.5 GM 4.5 GM/100 ML BAG IVPB ONE (01:00)
[2023-10-08] MEDS ORDERED: KETOROLAC TROMETHAMINE 15 MG/ML VIAL ONE (01:08)
[2023-10-08] MEDS: KETOROLAC TROMETHAMINE 15 MG/ML VIAL IVPUSH PRN (01:13)
[2023-10-08] MEDS: PIPERACILLIN/TAZOB 4.5 GM 4.5 GM in DEXTROSE 5%-WATER 100 ML IVPB SCH ×2 (01:13→11:22)
[2023-10-08] MEDS ORDERED: morphine SULFATE 4 MG/ML VIAL ONE (01:46)
[2023-10-08] MEDS: morphine SULFATE 4 MG/ML VIAL IVPUSH PRN (02:04)
[2023-10-08] MEDS: GABAPENTIN 400 MG CAPSULE PO SCH (05:19)
[2023-10-08] MEDS: ACETAMINOPHEN 500 MG TABLET (FP) PO SCH (05:20)
[2023-10-08] MEDS: METHOCARBAMOL 500 MG TABLET PO PRN (05:20)
[2023-10-08] MEDS ORDERED: methaDONE HCL 40 MG DISPERSABLE TABLET PO ONE ×2 (06:00→12:00)
[2023-10-08] MEDS: TAMSULOSIN HCL 0.4 MG CAP PO SCH (09:05)
[2023-10-08] MEDS: VANCOMYCIN/WATER FOR INJ (PEG) 1,000 MG/200 ML BAG IVPB SCH (09:06)
[2023-10-08 10:03] LABS: HEMATOCRIT 32.5 % (35.4-49); HEMOGLOBIN 11.1 GM/dL (11.7-16.9); MCH 28.4 pg (25.7-33.7); MCHC 34.1 g/dl (32.0-35.9); MEAN CELL VOLUME 83.3 fl (80-96); MEAN PLT VOLUME 8.4 fl (7.5-11.1); PLATELET COUNT 203 10^3/uL (134-434); RDW 14.9 % (11.9-15.9); WHITE BLOOD COUNT 4.4 K/mm3 (4.0-10.0)
[2023-10-08 10:26] LABS: POTASSIUM 4.6 mmol/L (3.5-5.1)
[2023-10-08 10:29] LABS: BLOOD UREA NITROGEN 16.8 mg/dL (7-18); CALCIUM 9.7 mg/dL (8.5-10.1); MAGNESIUM 2.3 mg/dL (1.8-2.4)
[2023-10-08 10:32] LABS: CREATININE 1.1 mg/dL (0.55-1.3)
[2023-10-08 10:33] LABS: PHOSPHOROUS 4.7 mg/dL (2.5-4.9)
[2023-10-08] MEDS: VANCOMYCIN 1,000 MG in DEXTROSE 5%-WATER - 250 ML IVPB SCH (11:22)
[2023-10-08] MEDS: DABIGATRAN ETEXILATE MESYLATE 150 MG CAPSULE PO SCH (11:29)
[2023-10-08] MEDS: QUEtiapine FUMARATE 100 MG TABLET (FP) PO SCH (21:45)
[2023-10-09] MEDS ORDERED: methaDONE HCL 40 MG DISPERSABLE TABLET PO SCH (10:00)
[2023-10-09] MEDS ORDERED: methaDONE HCL 40 MG DISPERSABLE TABLET PO ONE (10:09)
[2023-10-09 10:20] VITALS: RESP 20
[2023-10-09 13:03] LABS: BASO % 0.2 % (0-2.0); HEMATOCRIT 31.9 % (35.4-49); HEMOGLOBIN 10.8 GM/dL (11.7-16.9); LYMPH % 32.2 % (8-40); MCH 28.2 pg (25.7-33.7); MEAN CELL VOLUME 83.2 fl (80-96); MONO % 7.6 % (3.8-10.2); PLATELET COUNT 211 10^3/uL (134-434); RBC 3.84 M/mm3 (4.00-5.60); RDW 14.8 % (11.9-15.9)
[2023-10-09 13:26] LABS: POTASSIUM 4.5 mmol/L (3.5-5.1)
[2023-10-09 13:27] LABS: CALCIUM 8.9 mg/dL (8.5-10.1)
[2023-10-09 13:29] LABS: ALBUMIN 3.5 g/dl (3.4-5.0); MAGNESIUM 2.1 mg/dL (1.8-2.4)
[2023-10-09 13:32] LABS: BILIRUBIN,TOTAL 0.3 mg/dL (0.2-1); CREATININE 1.2 mg/dL (0.55-1.3)
[2023-10-09 13:34] LABS: TOT PROT 8.2 g/dl (6.4-8.2)
[2023-10-09] MEDS: LIDOCAINE 5% TOPICAL PATCH TP SCH (18:38)
[2023-10-09] MEDS: ACETAMINOPHEN 500 MG TABLET (FP) PO SCH (18:42)
[2023-10-09] MEDS: GABAPENTIN 300 MG CAPSULE PO SCH (21:25)
[2023-10-09] MEDS: KETOROLAC TROMETHAMINE 10 MG TABLET PO PRN (21:31)
[2023-10-09] MEDS: LIDOCAINE PATCH REMOVAL MC SCH (23:38)
[2023-10-10 18:19] VITALS: BP 123/93; PULSE 87; TEMP 98
== END 2023-10-10 20:12 | disposition short-term general hospital (02) ==
LOC: JER 12:10 → JERBED 19:00 → INTOOBSV 19:00 → UNDOADMOB 19:00 → JERBED 10-08 03:48 → J8W 10-08 03:48 → JERBED 10-08 13:42
PROVIDERS: ADMIT Internal Medicine; ATTEND Nurse Practitioner Acute Care
PROC: 3E033NZ Introduction of Analgesics, Hypnotics, Sedatives into Peripheral Vein, Percutaneous Approach (ICD-10-PCS; principal; 2023-10-08)
PROC: 3E0333Z Introduction of Anti-inflammatory into Peripheral Vein, Percutaneous Approach (ICD-10-PCS; 2023-10-08)
PROC: 3E0337Z Introduction of Electrolytic and Water Balance Substance into Peripheral Vein, Percutaneous Approach (ICD-10-PCS; 2023-10-08)
PROC: 3E033NZ Introduction of Analgesics, Hypnotics, Sedatives into Peripheral Vein, Percutaneous Approach (ICD-10-PCS; 2023-10-08)
PROC: 3E03329 Introduction of Other Anti-infective into Peripheral Vein, Percutaneous Approach (ICD-10-PCS; 2023-10-08)
DX: M46.46 Discitis, unspecified, lumbar region (principal); F11.20 Opioid dependence, uncomplicated; F41.8 Other specified anxiety disorders; F32.9 Major depressive disorder, single episode, unspecified; F19.10 Other psychoactive substance abuse, uncomplicated; F17.200 Nicotine dependence, unspecified, uncomplicated; Z86.718 Personal history of other venous thrombosis and embolism; Z29.89 Encounter for other specified prophylactic measures
CPT/HCPCS: 36415; 72100-TC-FY; 72132-TC; 72158-TC; 80048; 80053; 80307; 81003; 83735; 84100; 85025; 85027; 85651; 86140; 87086; 93005; 93010; 96361; 96365; 96366; 96367; 96375; 97116-GP; 97161-GP; 99285-25; G0378; J0131; Q9967

== ENCOUNTER 2023-10-26 08:00 | Inpatient (IN) | payer OTHER ==
[2023-10-26 08:26] VITALS: BMI 24.3
[2023-10-26] MEDS ORDERED: ACETAMINOPHEN 325 MG TABLET (FP) ONE (09:57)
[2023-10-26] MEDS ORDERED: ACETAMINOPHEN 500 MG TABLET (FP) ONE (10:02)
[2023-10-26] MEDS: ACETAMINOPHEN 500 MG TABLET (FP) PO ONE ×2 (10:09→10:10)
[2023-10-26] MEDS ORDERED: methaDONE HCL 40 MG DISPERSABLE TABLET ONE (10:34)
[2023-10-26] MEDS ORDERED: methaDONE HCL 10 MG TABLET ONE (10:34)
[2023-10-26] MEDS: methaDONE HCL 40 MG DISPERSABLE TABLET PO ONE (10:43)
[2023-10-26] MEDS: methaDONE HCL 10 MG TABLET PO ONE (10:43)
[2023-10-26 12:32] LABS: BASO % 0.1 % (0-2.0); EOS % 0.5 % (0-4.5); HEMATOCRIT 27.5 % (35.4-49); HEMOGLOBIN 9.3 GM/dL (11.7-16.9); LYMPH % 12.2 % (8-40); MCHC 33.8 g/dl (32.0-35.9); MEAN PLT VOLUME 6.6 fl (7.5-11.1); NEUT % 78.2 % (42.8-82.8); PLATELET COUNT 357 10^3/uL (134-434); RBC 3.32 M/mm3 (4.00-5.60); RDW 14.4 % (11.9-15.9); WHITE BLOOD COUNT 6.9 K/mm3 (4.0-10.0)
[2023-10-26 12:39] LABS: INR 1.18 (0.83-1.09); PROTHROMBIN TIME (PATIENT) 13.5 SEC (9.7-13.0)
[2023-10-26 12:41] LABS: ACTIVATED PTT 33.6 SECONDS (25.2-36.5)
[2023-10-26 13:09] LABS: POTASSIUM 4.1 mmol/L (3.5-5.1)
[2023-10-26 13:11] LABS: ALBUMIN 3.9 g/dl (3.4-5.0); CALCIUM 9.5 mg/dL (8.5-10.1)
[2023-10-26 13:12] LABS: BLOOD UREA NITROGEN 49.9 mg/dL (7-18)
[2023-10-26 13:15] LABS: CREATININE 1.1 mg/dL (0.55-1.3)
[2023-10-26 13:16] LABS: BILIRUBIN,TOTAL 0.6 mg/dL (0.2-1); TOT PROT 8.6 g/dl (6.4-8.2)
[2023-10-26 15:36] LABS: PH,URINE 5.5 (5.0-8.0); URINE APPEARANCE CLEAR; URINE BILIRUBIN NEGATIVE (NEGATIVE); URINE COLOR YELLOW; URINE GLUCOSE (UA) NEGATIVE (NEGATIVE); URINE KETONE 1+ (NEGATIVE); URINE LEUK ESTERASE NEGATIVE (NEGATIVE); URINE NITRITE NEGATIVE (NEGATIVE); URINE PROTEIN TRACE (NEGATIVE); URINE UROBILINOGEN 0.2 mg/dL (0.2-1.0)
[2023-10-26] MEDS ORDERED: LIDOCAINE 5% TOPICAL PATCH ONE (16:46)
[2023-10-26] MEDS: LIDOCAINE 5% TOPICAL PATCH TP ONE (16:55)
[2023-10-26] MEDS: FOLIC ACID 1 MG TABLET (FP) PO ONE (20:20)
[2023-10-26 21:11] LABS: PHENCYCLIDINE,URINE NEGATIVE (NEGATIVE); URINE BARBITURATES NEGATIVE (NEGATIVE)
[2023-10-26 21:13] LABS: COCAINE, UR POSITIVE (NEGATIVE); METHADONE, UR POSITIVE (NEGATIVE); OPIATES, URI POSITIVE (NEGATIVE); URINE AMPHETAMINES NEGATIVE (NEGATIVE); URINE BENZODIAZEPINES POSITIVE (NEGATIVE)
[2023-10-26] MEDS ORDERED: QUEtiapine FUMARATE 50 MG TABLET ONE ×2 (21:18)
[2023-10-26] MEDS: ENOXAPARIN NA (PORCINE) 80 MG/0.8 ML DISP.SYRIN SQ SCH (21:20)
[2023-10-26] MEDS: GABAPENTIN 300 MG CAPSULE PO SCH (21:20)
[2023-10-26] MEDS: oxyCODONE HCL 5 MG TABLET PO PRN (21:20)
[2023-10-26] MEDS: METHOCARBAMOL 500 MG TABLET PO SCH (21:20)
[2023-10-26] MEDS: QUEtiapine FUMARATE 100 MG TABLET (FP) PO SCH (21:22)
[2023-10-26] MEDS: SENNOSIDES 8.6MG TABLET (FP) PO SCH (21:22)
[2023-10-26] MEDS: LIDOCAINE PATCH REMOVAL MC SCH (21:22)
[2023-10-27 08:31] LABS: BASO % 0.1 % (0-2.0); EOS % 1.5 % (0-4.5); HEMATOCRIT 28.6 % (35.4-49); HEMOGLOBIN 9.8 GM/dL (11.7-16.9); LYMPH % 21.6 % (8-40); MCH 28.4 pg (25.7-33.7); MCHC 34.2 g/dl (32.0-35.9); MEAN PLT VOLUME 7.2 fl (7.5-11.1); MONO % 11.8 % (3.8-10.2); PLATELET COUNT 334 10^3/uL (134-434); RBC 3.44 M/mm3 (4.00-5.60); RDW 14.6 % (11.9-15.9); WHITE BLOOD COUNT 5.6 K/mm3 (4.0-10.0)
[2023-10-27 08:51] LABS: POTASSIUM 3.8 mmol/L (3.5-5.1)
[2023-10-27 09:01] LABS: BLOOD UREA NITROGEN 29.8 mg/dL (7-18); CALCIUM 9.2 mg/dL (8.5-10.1)
[2023-10-27 09:04] LABS: CREATININE 0.9 mg/dL (0.55-1.3)
[2023-10-27] MEDS: methaDONE 40 MG, methaDONE 20 MG PO ONE (09:12)
[2023-10-27] MEDS: TAMSULOSIN HCL 0.4 MG CAP PO SCH (09:14)
[2023-10-27] MEDS: MULTIVITAMINS (DAILY MVI) TABLET (FP) PO SCH (10:07)
[2023-10-27] MEDS: PANTOPRAZOLE 20 MG TABLET PO SCH (11:56)
[2023-10-27] MEDS: KETOROLAC TROMETHAMINE 30 MG/1 ML VIAL IVPUSH SCH (11:56)
[2023-10-27] MEDS ORDERED: QUEtiapine FUMARATE 50 MG TABLET ONE (20:51)
[2023-10-27] MEDS: ACETAMINOPHEN 500 MG TABLET (FP) PO PRN (21:26)
[2023-10-28] MEDS: methaDONE HCL 10 MG TABLET PO ONE ×2 (05:33→05:36)
[2023-10-28] MEDS ORDERED: methaDONE HCL 40 MG DISPERSABLE TABLET PO SCH (06:00)
[2023-10-28 08:30] LABS: HEMATOCRIT 28.5 % (35.4-49); HEMOGLOBIN 9.6 GM/dL (11.7-16.9); MCH 28.8 pg (25.7-33.7); MCHC 33.8 g/dl (32.0-35.9); MEAN PLT VOLUME 7.7 fl (7.5-11.1); PLATELET COUNT 245 10^3/uL (134-434); RBC 3.35 M/mm3 (4.00-5.60); RDW 14.4 % (11.9-15.9); WHITE BLOOD COUNT 2.8 K/mm3 (4.0-10.0)
[2023-10-28 09:05] LABS: CALCIUM 8.8 mg/dL (8.5-10.1)
[2023-10-28 09:06] LABS: BLOOD UREA NITROGEN 29.8 mg/dL (7-18)
[2023-10-28 21:02] LABS: EPI CELLS 5 /uL (0-25.1); HYALINE CASTS 0 /uL (0-3.1); URINE APPEARANCE CLEAR; URINE BACTERIA 3 /uL (0-1359); URINE BILIRUBIN NEGATIVE (NEGATIVE); URINE COLOR YELLOW; URINE GLUCOSE (UA) NEGATIVE (NEGATIVE); URINE KETONE NEGATIVE (NEGATIVE); URINE LEUK ESTERASE NEGATIVE (NEGATIVE); URINE NITRITE NEGATIVE (NEGATIVE); URINE PROTEIN 1+ (NEGATIVE); URINE RBC 333 /uL (0-23.9); URINE WBC 9 /uL (0-25.8)
[2023-10-28] MEDS ORDERED: QUEtiapine FUMARATE 50 MG TABLET ONE (22:14)
[2023-10-28] MEDS: QUEtiapine FUMARATE 50 MG TABLET PO SCH (22:26)
[2023-10-29 09:47] LABS: POTASSIUM 3.7 mmol/L (3.5-5.1)
[2023-10-29 09:57] LABS: CALCIUM 8.6 mg/dL (8.5-10.1)
[2023-10-29 09:58] LABS: BLOOD UREA NITROGEN 21.9 mg/dL (7-18)
[2023-10-29 10:01] LABS: CREATININE 1.1 mg/dL (0.55-1.3)
[2023-10-29 10:05] LABS: BASO % 0.5 % (0-2.0); EOS % 3.5 % (0-4.5); HEMATOCRIT 27.8 % (35.4-49); HEMOGLOBIN 9.3 GM/dL (11.7-16.9); LYMPH % 23.1 % (8-40); MCHC 33.6 g/dl (32.0-35.9); MEAN CELL VOLUME 83.4 fl (80-96); MEAN PLT VOLUME 7.8 fl (7.5-11.1); MONO % 8.3 % (3.8-10.2); NEUT % 64.6 % (42.8-82.8); PLATELET COUNT 222 10^3/uL (134-434); RBC 3.33 M/mm3 (4.00-5.60); RDW 14.4 % (11.9-15.9); WHITE BLOOD COUNT 3.1 K/mm3 (4.0-10.0)
[2023-10-30] MEDS: KETOROLAC TROMETHAMINE 30 MG/1 ML VIAL IVPUSH ONE (02:13)
[2023-10-30 08:13] LABS: BASO % 0.2 % (0-2.0); EOS % 3.7 % (0-4.5); HEMATOCRIT 25.8 % (35.4-49); HEMOGLOBIN 8.7 GM/dL (11.7-16.9); LYMPH % 21.5 % (8-40); MCHC 33.7 g/dl (32.0-35.9); MEAN CELL VOLUME 83.2 fl (80-96); MEAN PLT VOLUME 7.8 fl (7.5-11.1); MONO % 11.1 % (3.8-10.2); NEUT % 63.5 % (42.8-82.8); PLATELET COUNT 197 10^3/uL (134-434); RBC 3.11 M/mm3 (4.00-5.60); RDW 14.3 % (11.9-15.9); WHITE BLOOD COUNT 2.8 K/mm3 (4.0-10.0)
[2023-10-30 08:32] LABS: POTASSIUM 4.3 mmol/L (3.5-5.1)
[2023-10-30 08:35] LABS: CALCIUM 8.8 mg/dL (8.5-10.1)
[2023-10-30 08:39] LABS: CREATININE 0.8 mg/dL (0.55-1.3)
[2023-10-30] MEDS: KETOROLAC TROMETHAMINE 30 MG/1 ML VIAL IVPUSH SCH (17:27)
[2023-10-30] MEDS: KETOROLAC TROMETHAMINE 15 MG/ML VIAL IVPUSH ONE (21:56)
[2023-10-31] MEDS: MAG HYDROX/ALH/SMC/DPHA/LIDO 240 ML MOUTHWASH MM SCH (12:28)
[2023-11-01 08:18] LABS: HEMATOCRIT 25.8 % (35.4-49); HEMOGLOBIN 8.6 GM/dL (11.7-16.9); MCH 28.1 pg (25.7-33.7); MCHC 33.3 g/dl (32.0-35.9); MEAN CELL VOLUME 84.3 fl (80-96); MEAN PLT VOLUME 7.8 fl (7.5-11.1); PLATELET COUNT 219 10^3/uL (134-434); RBC 3.06 M/mm3 (4.00-5.60); RDW 14.5 % (11.9-15.9); WHITE BLOOD COUNT 3.7 K/mm3 (4.0-10.0)
[2023-11-01 08:23] LABS: PROTHROMBIN TIME (PATIENT) 11.5 SEC (9.7-13.0)
[2023-11-01 08:33] LABS: POTASSIUM 4.7 mmol/L (3.5-5.1)
[2023-11-01 08:35] LABS: CALCIUM 9.1 mg/dL (8.5-10.1)
[2023-11-01 08:37] LABS: BLOOD UREA NITROGEN 21.5 mg/dL (7-18); MAGNESIUM 1.9 mg/dL (1.8-2.4)
[2023-11-01 08:39] LABS: PHOSPHOROUS 3.5 mg/dL (2.5-4.9)
[2023-11-01] MEDS: KETOROLAC TROMETHAMINE 15 MG/ML VIAL IVPUSH PRN (12:40)
[2023-11-02] MEDS: LACTATED RINGERS SOLUTION 1,000 ML/1,000 ML INFUS.BAG IV SCH ×2 (09:39→19:40)
[2023-11-02] MEDS ORDERED: THROMBIN (BOVINE) 5,000 UNIT VIAL TP ONE (13:12)
[2023-11-02] MEDS ORDERED: ceFAZolin SODIUM 1 GM VIAL ONE ×2 (13:12→16:29)
[2023-11-02] MEDS ORDERED: PROPOFOL 40 ML ONE ×2 (13:29→15:40)
[2023-11-02] MEDS: ceFAZolin SODIUM 1 GM VIAL IVPB ONE (13:30)
[2023-11-02] MEDS ORDERED: PROPOFOL 60 ML ONE (13:36)
[2023-11-02] MEDS ORDERED: MIDAZOLAM HCL 2 MG/2 ML SINGLE DOSE VIAL ONE (14:26)
[2023-11-02] MEDS ORDERED: HYDROmorphone HCl 2 MG/ML VIAL ONE (14:27)
[2023-11-02] MEDS ORDERED: PROPOFOL 20 ML ONE (15:41)
[2023-11-02] MEDS ORDERED: ONDANSETRON 4 MG/2 ML VIAL IVPUSH PRN ×2 (17:48→18:20)
[2023-11-02] MEDS ORDERED: HYDROmorphone HCL CARPU-JECT 2 MG/1 ML DISP.SYRIN ONE (17:51)
[2023-11-02] MEDS: HYDROmorphone HCl 2 MG/ML VIAL IVPUSH PRN (17:55)
[2023-11-02] MEDS ORDERED: oxyCODONE HCL 5 MG TABLET PO PRN ×2 (18:19→18:20)
[2023-11-02] MEDS ORDERED: ACETAMINOPHEN 500 MG TABLET (FP) PO PRN (18:20)
[2023-11-02] MEDS ORDERED: diazePAM 5 MG TABLET ONE (18:38)
[2023-11-02] MEDS: diazePAM 5 MG TABLET PO PRN (18:40)
[2023-11-02] MEDS: FENTANYL CITRATE/PF 50 MCG/ML VIAL IVPUSH ONE ×2 (19:13→19:18)
[2023-11-02] MEDS: oxyCODONE HCL 5 MG TABLET PO PRN (20:55)
[2023-11-02] MEDS: GABAPENTIN 300 MG CAPSULE PO SCH (21:09)
[2023-11-02] MEDS: SENNOSIDES 8.6MG TABLET (FP) PO SCH (21:10)
[2023-11-02] MEDS: QUEtiapine FUMARATE 50 MG TABLET PO SCH (21:10)
[2023-11-02] MEDS: METHOCARBAMOL 500 MG TABLET PO SCH (21:11)
[2023-11-02] MEDS ORDERED: LIDOCAINE PATCH REMOVAL MC SCH (22:00)
[2023-11-02 22:11] VITALS: RESP 18
[2023-11-03] MEDS: morphine SULFATE 4 MG/ML VIAL IVPUSH PRN (01:36)
[2023-11-03] MEDS: CEFAZOLIN 1 GM in DEXTROSE 5%-WATER - 50 ML IVPB SCH (02:53)
[2023-11-03] MEDS: TAMSULOSIN HCL 0.4 MG CAP PO SCH (09:03)
[2023-11-03] MEDS: MULTIVITAMINS (DAILY MVI) TABLET (FP) PO SCH (10:43)
[2023-11-03] MEDS: PANTOPRAZOLE 20 MG TABLET PO SCH (10:43)
[2023-11-03] MEDS: ACETAMINOPHEN 1000 MG/100 ML BAG IVPB PRN (11:47)
[2023-11-03] MEDS: LIDOCAINE 5% TOPICAL PATCH TP SCH (11:47)
[2023-11-03] MEDS: LACTATED RINGERS SOLUTION 1,000 ML IV SCH (12:05)
[2023-11-03] MEDS: LIDOCAINE PATCH REMOVAL MC SCH (22:26)
[2023-11-04] MEDS: HEPARIN NA (PORCINE) 5,000 UNITS/ML 1ML VIAL SQ SCH (09:40)
[2023-11-04 09:52] LABS: BASO % 0.4 % (0-2.0); EOS % 1.7 % (0-4.5); HEMATOCRIT 24.2 % (35.4-49); HEMOGLOBIN 8.1 GM/dL (11.7-16.9); LYMPH % 23.8 % (8-40); MCH 27.8 pg (25.7-33.7); MCHC 33.6 g/dl (32.0-35.9); MEAN CELL VOLUME 82.6 fl (80-96); MEAN PLT VOLUME 7.8 fl (7.5-11.1); MONO % 9.8 % (3.8-10.2); NEUT % 64.3 % (42.8-82.8); PLATELET COUNT 221 10^3/uL (134-434); RBC 2.93 M/mm3 (4.00-5.60); RDW 14.5 % (11.9-15.9); WHITE BLOOD COUNT 5.5 K/mm3 (4.0-10.0)
[2023-11-04 10:02] LABS: POTASSIUM 4.5 mmol/L (3.5-5.1)
[2023-11-04 10:03] LABS: CALCIUM 9.1 mg/dL (8.5-10.1)
[2023-11-04 10:04] LABS: BLOOD UREA NITROGEN 18.7 mg/dL (7-18); MAGNESIUM 1.9 mg/dL (1.8-2.4)
[2023-11-04 10:07] LABS: CREATININE 1.1 mg/dL (0.55-1.3)
[2023-11-04 10:36] LABS: ALBUMIN 2.8 g/dl (3.4-5.0)
[2023-11-04 10:58] LABS: BILIRUBIN,TOTAL 0.3 mg/dL (0.2-1)
[2023-11-04] MEDS: IRON SUCROSE INJECTION 100 MG in SODIUM CHLORIDE 95 ML IVPB ONE (20:46)
[2023-11-05 12:43] LABS: BASO % 0.3 % (0-2.0); EOS % 2.8 % (0-4.5); HEMATOCRIT 23.1 % (35.4-49); HEMOGLOBIN 7.6 GM/dL (11.7-16.9); LYMPH % 28.3 % (8-40); MCH 27.6 pg (25.7-33.7); MCHC 32.9 g/dl (32.0-35.9); MEAN CELL VOLUME 84.1 fl (80-96); MEAN PLT VOLUME 8.1 fl (7.5-11.1); MONO % 9.6 % (3.8-10.2); PLATELET COUNT 237 10^3/uL (134-434); RBC 2.75 M/mm3 (4.00-5.60); RDW 14.5 % (11.9-15.9); WHITE BLOOD COUNT 5.7 K/mm3 (4.0-10.0)
[2023-11-05 12:55] LABS: POTASSIUM 4.4 mmol/L (3.5-5.1)
[2023-11-05 12:59] LABS: ALBUMIN 2.7 g/dl (3.4-5.0); BLOOD UREA NITROGEN 19.9 mg/dL (7-18)
[2023-11-05 13:02] LABS: CREATININE 1.1 mg/dL (0.55-1.3)
[2023-11-05 13:04] LABS: BILIRUBIN,TOTAL 0.4 mg/dL (0.2-1); TOT PROT 6.8 g/dl (6.4-8.2)
[2023-11-05] MEDS: IRON SUCROSE INJECTION 100 MG in SODIUM CHLORIDE 95 ML IVPB ONE (14:07)
[2023-11-06 11:20] LABS: BASO % 0.4 % (0-2.0); HEMATOCRIT 22.5 % (35.4-49); HEMOGLOBIN 7.4 GM/dL (11.7-16.9); LYMPH % 28.5 % (8-40); MCH 27.5 pg (25.7-33.7); MCHC 32.9 g/dl (32.0-35.9); MEAN CELL VOLUME 83.8 fl (80-96); MEAN PLT VOLUME 8.1 fl (7.5-11.1); MONO % 8.4 % (3.8-10.2); NEUT % 59.7 % (42.8-82.8); PLATELET COUNT 205 10^3/uL (134-434); RBC 2.69 M/mm3 (4.00-5.60); RDW 14.4 % (11.9-15.9); WHITE BLOOD COUNT 4.4 K/mm3 (4.0-10.0)
[2023-11-06 11:53] LABS: POTASSIUM 4.7 mmol/L (3.5-5.1)
[2023-11-06 11:59] LABS: CALCIUM 9.3 mg/dL (8.5-10.1)
[2023-11-06 12:00] LABS: ALBUMIN 2.6 g/dl (3.4-5.0); BLOOD UREA NITROGEN 20.1 mg/dL (7-18)
[2023-11-06 12:05] LABS: BILIRUBIN,TOTAL 0.3 mg/dL (0.2-1); TOT PROT 6.7 g/dl (6.4-8.2)
[2023-11-07] MEDS ORDERED: KETOROLAC TROMETHAMINE 30 MG/1 ML VIAL IVPUSH PRN (14:04)
[2023-11-07] MEDS ORDERED: GABAPENTIN 300 MG CAPSULE PO SCH (14:12)
[2023-11-07 15:21] VITALS: BP 92/66; PULSE 66; TEMP 99.1
== END 2023-11-07 17:31 | disposition home or self-care (01) | DRG 304 ==
LOC: JER 08:00 → JERBED 17:31 → OBSVTOIN 18:48 → J7W 19:52 → J8W 11-02 19:53
PROVIDERS: ADMIT Internal Medicine; ATTEND Nurse Practitioner Acute Care
PROC: 0SP004Z Removal of Internal Fixation Device from Lumbar Vertebral Joint, Open Approach (ICD-10-PCS; 2023-11-02)
PROC: 0SH004Z Insertion of Internal Fixation Device into Lumbar Vertebral Joint, Open Approach (ICD-10-PCS; 2023-11-02)
PROC: 01NB0ZZ Release Lumbar Nerve, Open Approach (ICD-10-PCS; 2023-11-02)
PROC: 0SB20ZZ Excision of Lumbar Vertebral Disc, Open Approach (ICD-10-PCS; 2023-11-02)
PROC: 0SG3071 Fusion of Lumbosacral Joint with Autologous Tissue Substitute, Posterior Approach, Posterior Column, Open Approach (ICD-10-PCS; 2023-11-02)
PROC: 0SP304Z Removal of Internal Fixation Device from Lumbosacral Joint, Open Approach (ICD-10-PCS; 2023-11-02)
PROC: 0SH304Z Insertion of Internal Fixation Device into Lumbosacral Joint, Open Approach (ICD-10-PCS; 2023-11-02)
PROC: 4A11X4G Monitoring of Peripheral Nervous Electrical Activity, Intraoperative, External Approach (ICD-10-PCS; 2023-11-02)
PROC: 0SG1071 Fusion of 2 or more Lumbar Vertebral Joints with Autologous Tissue Substitute, Posterior Approach, Posterior Column, Open Approach (ICD-10-PCS; principal; 2023-11-02 14:00)
DX: M46.36 Infection of intervertebral disc (pyogenic), lumbar region (principal); U07.1 COVID-19; G06.2 Extradural and subdural abscess, unspecified; F14.20 Cocaine dependence, uncomplicated; F11.20 Opioid dependence, uncomplicated; M84.48XA Pathological fracture, other site, initial encounter for fracture; N40.0 Benign prostatic hyperplasia without lower urinary tract symptoms; M46.46 Discitis, unspecified, lumbar region; F10.20 Alcohol dependence, uncomplicated; R00.1 Bradycardia, unspecified; D50.9 Iron deficiency anemia, unspecified; F19.10 Other psychoactive substance abuse, uncomplicated; M47.816 Spondylosis without myelopathy or radiculopathy, lumbar region; X58.XXXA Exposure to other specified factors, initial encounter
CPT/HCPCS: 0241U-QW; 36415; 70450-TC; 71045-TC-FY; 72125-TC; 72128-TC; 72131-TC; 72148-TC; 74176-TC; 76000-TC-FY; 80048; 80053; 80307; 81003; 83540; 83550; 83735; 84100; 85025; 85027; 85610; 85730; 86850; 86900; 86901; 87070; 87075; 87086; 87205; 87635; 94010; 94760; 97116-GP; 97161-GP; 99285-25; C1713; G0378; J0131; J1644; J1756

== ENCOUNTER 2023-12-24 10:17 | Inpatient (IN) | payer OTHER ==
[2023-12-24 10:56] VITALS: BMI 20.6
[2023-12-24] MEDS ORDERED: DICYCLOMINE HCL 10 MG CAPSULE PO PRN (11:39)
[2023-12-24] MEDS ORDERED: MAG HYDROX/AL HYDROX/SIMETH 30 ML UNIT-DOSE CUP PO PRN (11:39)
[2023-12-24] MEDS ORDERED: BENZONATATE 200 MG CAPSULE PO PRN (11:39)
[2023-12-24] MEDS ORDERED: ONDANSETRON *ODT* 4 MG TABLET SL PRN (11:39)
[2023-12-24] MEDS ORDERED: NALOXONE (NARCAN) HCL 4 MG/0.1 ML SPRAY NS PRN (11:39)
[2023-12-24] MEDS ORDERED: POLYETHYLENE GLYCOL (HEALTHYLAX) 3350 17 GM PACKET PO PRN (11:39)
[2023-12-24] MEDS ORDERED: MAGNESIUM HYDROX 2400MG/30ML ORAL SUSPENSION 30 ML CUP PO PRN (11:39)
[2023-12-24] MEDS ORDERED: BENZOCAINE/MENTHOL (CHLORASEPTIC ) LOZENGE MM PRN (11:39)
[2023-12-24] MEDS ORDERED: IBUPROFEN 600 MG TABLET (FP) PO PRN (11:39)
[2023-12-24] MEDS ORDERED: IBUPROFEN 400 MG TABLET (FP) PO PRN (11:39)
[2023-12-24] MEDS ORDERED: guaiFENesin 600 MG TABLET.ER (FP) PO PRN (11:39)
[2023-12-24] MEDS ORDERED: methaDONE HCL 10 MG TABLET (FOR DETOX USE ONLY) ONE (13:01)
[2023-12-24] MEDS ORDERED: PRENATAL VITAMINS W/ FOLIC ACID TABLET (FP) PO ONE (13:02)
[2023-12-24] MEDS: methaDONE HCL 10 MG TABLET PO ONE (13:04)
[2023-12-24] MEDS: PRENATAL VITAMINS W/ FOLIC ACID TABLET (FP) PO SCH (13:05)
[2023-12-24] MEDS: GABAPENTIN 300 MG CAPSULE PO SCH (13:31)
[2023-12-24] MEDS: cloNIDine HCL 0.1 MG TABLET PO SCH (13:31)
[2023-12-24] MEDS: hydrOXYzine PAMOATE 25 MG CAPSULE (FP) PO PRN (17:10)
[2023-12-24] MEDS: METHOCARBAMOL 500 MG TABLET PO PRN (17:10)
[2023-12-24] MEDS: THIAMINE 100 MG TABLET PO SCH (22:54)
[2023-12-24] MEDS: ACETAMINOPHEN 500 MG TABLET (FP) PO SCH (22:55)
[2023-12-24] MEDS: MELATONIN 5 MG TABLETS PO SCH (22:55)
[2023-12-24] MEDS: NICOTINE POLACRILEX 2 MG GUM BUC PRN (23:18)
[2023-12-25] MEDS ORDERED: methaDONE HCL 40 MG DISPERSABLE TABLET PO SCH (06:00)
[2023-12-25] MEDS: ACETAMINOPHEN 325 MG TABLET (FP) PO PRN (07:03)
[2023-12-25] MEDS: BISMUTH SUBSALICYLATE 524 MG/30 ML PO PRN (07:08)
[2023-12-25] MEDS: NICOTINE 21 MG/24 HOURS TOPICAL PATCH TD SCH (09:57)
[2023-12-25] MEDS: PANTOPRAZOLE 20 MG TABLET PO SCH (10:03)
[2023-12-25] MEDS: TAMSULOSIN HCL 0.4 MG CAP PO SCH (10:03)
[2023-12-25] MEDS: methaDONE HCL 10 MG TABLET PO ONE (10:04)
[2023-12-25] MEDS: DABIGATRAN ETEXILATE MESYLATE 150 MG CAPSULE PO SCH (10:05)
[2023-12-25] MEDS: FLU VACCINE (FLULAVAL) PF 45 MCG/0.5 ML SYRINGE 2024-2025 IM ONE (11:46)
[2023-12-25 15:07] LABS: HEMATOCRIT 32.6 % (35.4-49); HEMOGLOBIN 10.5 GM/dL (11.7-16.9); MCHC 32.3 g/dl (32.0-35.9); MEAN CELL VOLUME 77.2 fl (80-96); MEAN PLT VOLUME 8.7 fl (7.5-11.1); PLATELET COUNT 290 10^3/uL (134-434); RBC 4.22 M/mm3 (4.00-5.60); RDW 16.6 % (11.9-15.9); WHITE BLOOD COUNT 6.8 K/mm3 (4.0-10.0)
[2023-12-25 15:10] LABS: POTASSIUM 4.3 mmol/L (3.5-5.1)
[2023-12-25 15:12] LABS: CALCIUM 9.5 mg/dL (8.5-10.1)
[2023-12-25 15:13] LABS: BLOOD UREA NITROGEN 21.1 mg/dL (7-18)
[2023-12-25 15:16] LABS: CREATININE 1.3 mg/dL (0.55-1.3)
[2023-12-25 15:17] LABS: BILIRUBIN,TOTAL 0.5 mg/dL (0.2-1); TOT PROT 8.8 g/dl (6.4-8.2)
[2023-12-25] MEDS: QUEtiapine FUMARATE 100 MG TABLET (FP) PO SCH (21:48)
[2023-12-26] MEDS ORDERED: diazePAM 5 MG TABLET PO PRN (09:13)
[2023-12-26] MEDS: cloNIDine HCL 0.1 MG TABLET PO PRN (10:00)
[2023-12-26] MEDS: methaDONE HCL 10 MG TABLET PO ONE (10:00)
[2023-12-27] MEDS: methaDONE HCL 40 MG DISPERSABLE TABLET PO ONE (09:42)
[2023-12-27] MEDS: LOPERAMIDE HCL 2 MG CAPSULE PO PRN (18:14)
[2023-12-28] MEDS: methaDONE 40 MG, methaDONE 10 MG PO ONE (09:49)
[2023-12-29 06:44] VITALS: RESP 16
[2023-12-29] MEDS ORDERED: methaDONE 40 MG, methaDONE 20 MG PO ONE (10:00)
[2023-12-29] MEDS: methaDONE 40 MG, methaDONE 10 MG PO ONE (10:40)
[2023-12-29] MEDS: NALOXONE (NYS OPIOID OVERDOSE PROGRAM) 4 MG/0.1 ML SPRAY NS PRN (11:41)
[2023-12-29 13:03] VITALS: BP 127/85; PULSE 72; TEMP 98.9
== END 2023-12-29 13:00 | disposition other institution (70) | DRG 773 ==
LOC: YASAS 10:17 → Y6N 11:36
PROVIDERS: ADMIT Allergy & Immunology; ATTEND Surgery
PROC: HZ2ZZZZ Detoxification Services for Substance Abuse Treatment (ICD-10-PCS; principal; 2023-12-24)
DX: F11.23 Opioid dependence with withdrawal (principal); F14.20 Cocaine dependence, uncomplicated; F17.210 Nicotine dependence, cigarettes, uncomplicated; F41.8 Other specified anxiety disorders; D64.9 Anemia, unspecified; N40.0 Benign prostatic hyperplasia without lower urinary tract symptoms; Z86.19 Personal history of other infectious and parasitic diseases; Z86.718 Personal history of other venous thrombosis and embolism; Z79.02 Long term (current) use of antithrombotics/antiplatelets; Z59.01 Sheltered homelessness
CPT/HCPCS: 36415; 80053; 80305; 85027; 86780; 87811; 90656; 93005; 93010; G0008

== ENCOUNTER 2023-12-29 13:08 | Inpatient (IN) | payer OTHER ==
[2023-12-29] MEDS ORDERED: IBUPROFEN 400 MG TABLET (FP) PO PRN (14:59)
[2023-12-29] MEDS ORDERED: POLYETHYLENE GLYCOL (HEALTHYLAX) 3350 17 GM PACKET PO PRN (14:59)
[2023-12-29] MEDS ORDERED: guaiFENesin 600 MG TABLET.ER (FP) PO PRN (14:59)
[2023-12-29] MEDS ORDERED: BENZOCAINE/MENTHOL (CHLORASEPTIC ) LOZENGE MM PRN (14:59)
[2023-12-29] MEDS ORDERED: NALOXONE (NARCAN) HCL 4 MG/0.1 ML SPRAY NS PRN (14:59)
[2023-12-29] MEDS ORDERED: NALOXONE HCL 0.4 MG/ML VIAL IVPUSH PRN (14:59)
[2023-12-29] MEDS ORDERED: BENZONATATE 200 MG CAPSULE PO PRN (14:59)
[2023-12-29] MEDS: ACETAMINOPHEN 325 MG TABLET (FP) PO PRN (21:22)
[2023-12-29] MEDS: THIAMINE 100 MG TABLET PO SCH (21:23)
[2023-12-29] MEDS: MELATONIN 5 MG TABLETS PO SCH (21:23)
[2023-12-29] MEDS: hydrOXYzine PAMOATE 25 MG CAPSULE (FP) PO PRN (21:24)
[2023-12-29] MEDS: METHOCARBAMOL 500 MG TABLET PO PRN (21:25)
[2023-12-29] MEDS: QUEtiapine FUMARATE 50 MG TABLET PO SCH (21:26)
[2023-12-29] MEDS: DABIGATRAN ETEXILATE MESYLATE 150 MG CAPSULE PO SCH (22:39)
[2023-12-30] MEDS ORDERED: methaDONE HCL 10 MG TABLET PO SCH (06:00)
[2023-12-30] MEDS: LOPERAMIDE HCL 2 MG CAPSULE PO PRN (07:33)
[2023-12-30] MEDS: PANTOPRAZOLE 20 MG TABLET PO SCH (10:50)
[2023-12-30] MEDS: NICOTINE 21 MG/24 HOURS TOPICAL PATCH TD SCH (10:50)
[2023-12-30] MEDS: PRENATAL VITAMINS W/ FOLIC ACID TABLET (FP) PO SCH (10:50)
[2023-12-30] MEDS: TAMSULOSIN HCL 0.4 MG CAP PO SCH (10:50)
[2023-12-30] MEDS: NICOTINE POLACRILEX 2 MG GUM BUC PRN (18:23)
[2023-12-30] MEDS: IBUPROFEN 600 MG TABLET (FP) PO PRN (20:59)
[2024-01-02] MEDS: GABAPENTIN 300 MG CAPSULE PO SCH (21:12)
[2024-01-03] MEDS: MAGNESIUM HYDROX 2400MG/30ML ORAL SUSPENSION 30 ML CUP PO PRN (18:18)
[2024-01-08] MEDS: METHOCARBAMOL 500 MG TABLET PO PRN (21:05)
[2024-01-15] MEDS: MAG HYDROX/AL HYDROX/SIMETH 30 ML UNIT-DOSE CUP PO PRN (10:27)
[2024-01-21 07:49] VITALS: RESP 16; TEMP 97.7
[2024-01-21 07:51] VITALS: BP 147/89; PULSE 74
[2024-01-21] MEDS: NALOXONE (NYS OPIOID OVERDOSE PROGRAM) 4 MG/0.1 ML SPRAY NS SCH (08:54)
== END 2024-01-21 08:56 | disposition home or self-care (01) | DRG 772 ==
LOC: YASAS 13:08 → Y3NR 13:11 → Y3W 12-31 09:52
PROVIDERS: ADMIT Allergy & Immunology; ATTEND Psychiatry & Neurology Pain Medicine
PROC: HZ42ZZZ Group Counseling for Substance Abuse Treatment, Cognitive-Behavioral (ICD-10-PCS; principal; 2023-12-29)
DX: F11.20 Opioid dependence, uncomplicated (principal); F14.20 Cocaine dependence, uncomplicated; F17.210 Nicotine dependence, cigarettes, uncomplicated; F41.9 Anxiety disorder, unspecified; F43.10 Post-traumatic stress disorder, unspecified; K21.9 Gastro-esophageal reflux disease without esophagitis; N40.0 Benign prostatic hyperplasia without lower urinary tract symptoms; Z86.718 Personal history of other venous thrombosis and embolism; Z79.02 Long term (current) use of antithrombotics/antiplatelets

== ENCOUNTER 2024-02-13 08:09 | Inpatient (IN) | payer OTHER ==
[2024-02-13 08:37] VITALS: BMI 22.9
[2024-02-13] MEDS ORDERED: NICOTINE POLACRILEX 2 MG LOZENGE BC PRN (09:33)
[2024-02-13] MEDS ORDERED: MAG HYDROX/AL HYDROX/SIMETH 30 ML UNIT-DOSE CUP PO PRN (09:33)
[2024-02-13] MEDS ORDERED: IBUPROFEN 600 MG TABLET (FP) PO PRN (09:33)
[2024-02-13] MEDS ORDERED: LOPERAMIDE HCL 2 MG CAPSULE PO PRN (09:33)
[2024-02-13] MEDS ORDERED: METHOCARBAMOL 500 MG TABLET PO PRN (09:33)
[2024-02-13] MEDS ORDERED: BENZONATATE 200 MG CAPSULE PO PRN (09:33)
[2024-02-13] MEDS ORDERED: BENZOCAINE/MENTHOL (CHLORASEPTIC ) LOZENGE MM PRN (09:33)
[2024-02-13] MEDS ORDERED: IBUPROFEN 400 MG TABLET (FP) PO PRN (09:33)
[2024-02-13] MEDS ORDERED: POLYETHYLENE GLYCOL (HEALTHYLAX) 3350 17 GM PACKET PO PRN (09:33)
[2024-02-13] MEDS ORDERED: guaiFENesin 600 MG TABLET.ER (FP) PO PRN (09:33)
[2024-02-13] MEDS ORDERED: NALOXONE HCL 0.4 MG/ML VIAL IVPUSH PRN (09:33)
[2024-02-13] MEDS ORDERED: NALOXONE (NARCAN) HCL 4 MG/0.1 ML SPRAY NS PRN (09:33)
[2024-02-13] MEDS ORDERED: MAGNESIUM HYDROX 2400MG/30ML ORAL SUSPENSION 30 ML CUP PO PRN (09:33)
[2024-02-13] MEDS ORDERED: PRENATAL VITAMINS W/ FOLIC ACID TABLET (FP) PO ONE (10:03)
[2024-02-13] MEDS: PRENATAL VITAMINS W/ FOLIC ACID TABLET (FP) PO SCH (10:05)
[2024-02-13] MEDS ORDERED: SENNOSIDES 8.6MG TABLET (FP) PO PRN (10:13)
[2024-02-13] MEDS: DABIGATRAN ETEXILATE MESYLATE 150 MG CAPSULE PO SCH (12:00)
[2024-02-13] MEDS: GABAPENTIN 300 MG CAPSULE PO SCH (14:06)
[2024-02-13] MEDS ORDERED: SENNOSIDES 8.6MG TABLET (FP) PO SCH (22:00)
[2024-02-13] MEDS: QUEtiapine FUMARATE 100 MG TABLET (FP) PO SCH (22:25)
[2024-02-13] MEDS: THIAMINE 100 MG TABLET PO SCH (22:25)
[2024-02-13] MEDS: MELATONIN 5 MG TABLETS PO SCH (22:25)
[2024-02-13] MEDS: ACETAMINOPHEN 325 MG TABLET (FP) PO PRN (22:26)
[2024-02-14] MEDS: PANTOPRAZOLE 20 MG TABLET PO SCH (07:34)
[2024-02-14] MEDS: TAMSULOSIN HCL 0.4 MG CAP PO SCH (07:34)
[2024-02-14] MEDS ORDERED: methaDONE HCL 10 MG TABLET PO SCH (09:15)
[2024-02-15] MEDS: NICOTINE POLACRILEX 2 MG GUM BUC PRN (06:07)
[2024-02-17 07:10] VITALS: RESP 17
[2024-02-18 07:11] VITALS: BP 136/89; PULSE 85; TEMP 98.1
[2024-02-18] MEDS: NALOXONE (NYS OPIOID OVERDOSE PROGRAM) 4 MG/0.1 ML SPRAY NS SCH (17:14)
== END 2024-02-18 17:16 | disposition home or self-care (01) | DRG 772 ==
LOC: YASAS 08:09 → Y3NR 10:17 → Y3E 02-14 10:18
PROVIDERS: ADMIT Psychiatry & Neurology Pain Medicine; ATTEND Psychiatry & Neurology Pain Medicine
PROC: HZ42ZZZ Group Counseling for Substance Abuse Treatment, Cognitive-Behavioral (ICD-10-PCS; principal; 2024-02-13)
DX: F11.20 Opioid dependence, uncomplicated (principal); F10.20 Alcohol dependence, uncomplicated; F14.20 Cocaine dependence, uncomplicated; F12.20 Cannabis dependence, uncomplicated; F17.210 Nicotine dependence, cigarettes, uncomplicated; F43.10 Post-traumatic stress disorder, unspecified; F41.9 Anxiety disorder, unspecified; G47.00 Insomnia, unspecified; N40.0 Benign prostatic hyperplasia without lower urinary tract symptoms; Z86.718 Personal history of other venous thrombosis and embolism; Z59.01 Sheltered homelessness

== ENCOUNTER 2024-04-07 06:55 | Inpatient (IN) | payer OTHER ==
[2024-04-07 07:04] VITALS: BMI 24.2
[2024-04-07 10:40] LABS: BASO % 0.3 % (0-2.0); EOS % 0.1 % (0-4.5); HEMATOCRIT 35.5 % (35.4-49); HEMOGLOBIN 11.2 GM/dL (11.7-16.9); MCH 24.9 pg (25.7-33.7); MCHC 31.5 g/dl (32.0-35.9); MEAN CELL VOLUME 79.2 fl (80-96); MEAN PLT VOLUME 8.4 fl (7.5-11.1); NEUT % 88.6 % (42.8-82.8); PLATELET COUNT 205 10^3/uL (134-434); RBC 4.49 M/mm3 (4.00-5.60); RDW 16.5 % (11.9-15.9); WHITE BLOOD COUNT 12.3 K/mm3 (4.0-10.0)
[2024-04-07 10:48] LABS: INR 1.26 (0.83-1.09); PROTHROMBIN TIME (PATIENT) 13.9 SEC (9.7-13.0)
[2024-04-07 10:56] LABS: POTASSIUM 4.1 mmol/L (3.5-5.1)
[2024-04-07 10:59] LABS: CALCIUM 9.4 mg/dL (8.5-10.1)
[2024-04-07 11:00] LABS: ALBUMIN 3.6 g/dl (3.4-5.0); BLOOD UREA NITROGEN 15.9 mg/dL (7-18)
[2024-04-07 11:05] LABS: BILIRUBIN,TOTAL 0.7 mg/dL (0.2-1); TOT PROT 8.2 g/dl (6.4-8.2)
[2024-04-07 13:04] LABS: URINE APPEARANCE CLEAR; URINE BILIRUBIN NEGATIVE (NEGATIVE); URINE COLOR YELLOW; URINE GLUCOSE (UA) NEGATIVE (NEGATIVE); URINE KETONE NEGATIVE (NEGATIVE); URINE LEUK ESTERASE NEGATIVE (NEGATIVE); URINE NITRITE NEGATIVE (NEGATIVE); URINE PROTEIN NEGATIVE (NEGATIVE)
[2024-04-07 15:59] LABS: MAGNESIUM 1.6 mg/dL (1.8-2.4)
[2024-04-07] MEDS ORDERED: ACETAMINOPHEN INJECTION 100 ML ONE (16:35)
[2024-04-07] MEDS ORDERED: KETOROLAC TROMETHAMINE 15 MG/ML VIAL ONE (21:14)
[2024-04-07] MEDS: SODIUM CHLORIDE 1,000 ML IV STA (21:21)
[2024-04-07] MEDS: KETOROLAC TROMETHAMINE 15 MG/ML VIAL IVPUSH ONE (21:21)
[2024-04-07] MEDS: ACETAMINOPHEN 1000 MG/100 ML BAG IVPB ONE (21:22)
[2024-04-07] MEDS: MAGNESIUM SULF 50% (8.12 MEQ/2 ML-1 GM VIAL) IVPB ONE (23:23)
[2024-04-07] MEDS ORDERED: CEFTRIAXONE 1 G/50 ML PREMIX 50 ML IVPB ONE (23:24)
[2024-04-07] MEDS: CEFTRIAXONE 1,000 MG in DEXTROSE 5%-WATER - 50 ML IVPB ONE (23:31)
[2024-04-08] MEDS ORDERED: TRIMETHOBENZAMIDE HCL 200MG/2ML INJ IM ONE (00:09)
[2024-04-08] MEDS ORDERED: AZITHROMYCIN IVPB 500 MG/250 ML BAG IVPB ONE (00:09)
[2024-04-08] MEDS: AZITHROMYCIN IVPB 500 MG in DEXTROSE 5%-WATER - 250 ML IVPB ONE (00:16)
[2024-04-08] MEDS: TRIMETHOBENZAMIDE HCL 200MG/2ML INJ IM ONE (00:16)
[2024-04-08 05:00] VITALS: RESP 18
[2024-04-08] MEDS ORDERED: METHOCARBAMOL 500 MG TABLET PO PRN (06:14)
[2024-04-08] MEDS: HYDROCORTISONE 1% TOPICAL CREAM 30 GM TUBE RC SCH (08:38)
[2024-04-08] MEDS: TAMSULOSIN HCL 0.4 MG CAP PO SCH (08:40)
[2024-04-08 09:15] LABS: HEMATOCRIT 29.8 % (35.4-49); HEMOGLOBIN 9.8 GM/dL (11.7-16.9); MCH 25.8 pg (25.7-33.7); MCHC 32.9 g/dl (32.0-35.9); MEAN CELL VOLUME 78.5 fl (80-96); MEAN PLT VOLUME 8.3 fl (7.5-11.1); PLATELET COUNT 136 10^3/uL (134-434); RDW 16.5 % (11.9-15.9); WHITE BLOOD COUNT 5.2 K/mm3 (4.0-10.0)
[2024-04-08 09:42] LABS: POTASSIUM 3.6 mmol/L (3.5-5.1)
[2024-04-08] MEDS: MULTIVITAMINS (DAILY MVI) TABLET (FP) PO SCH (09:56)
[2024-04-08] MEDS: PANTOPRAZOLE 20 MG TABLET PO SCH (09:56)
[2024-04-08 10:02] LABS: ALBUMIN 3.1 g/dl (3.4-5.0)
[2024-04-08 10:05] LABS: BILIRUBIN,TOTAL 0.5 mg/dL (0.2-1); CREATININE 0.9 mg/dL (0.55-1.3); TOT PROT 7.3 g/dl (6.4-8.2)
[2024-04-08 10:09] LABS: CALCIUM 8.9 mg/dL (8.5-10.1); MAGNESIUM 1.9 mg/dL (1.8-2.4)
[2024-04-08] MEDS: BUDESONIDE/FORMETEROL FUMARATE 160/4.5 mcg INHALER IH SCH (11:00)
[2024-04-08] MEDS: DABIGATRAN ETEXILATE MESYLATE 150 MG CAPSULE PO SCH (11:01)
[2024-04-08] MEDS: GABAPENTIN 300 MG CAPSULE PO SCH (13:39)
[2024-04-08 13:50] LABS: COCAINE, UR NEGATIVE (NEGATIVE); URINE BARBITURATES NEGATIVE (NEGATIVE); URINE BENZODIAZEPINES NEGATIVE (NEGATIVE)
[2024-04-08 13:51] LABS: OPIATES, URI NEGATIVE (NEGATIVE)
[2024-04-08 13:53] LABS: METHADONE, UR POSITIVE (NEGATIVE); PHENCYCLIDINE,URINE NEGATIVE (NEGATIVE); URINE AMPHETAMINES NEGATIVE (NEGATIVE)
[2024-04-08] MEDS ORDERED: CEFTRIAXONE 1 G/50 ML PREMIX 50 ML IVPB SCH (20:00)
[2024-04-08] MEDS ORDERED: AZITHROMYCIN IVPB 500 MG/250 ML BAG IVPB SCH (20:00)
[2024-04-08] MEDS ORDERED: QUEtiapine FUMARATE 50 MG TABLET ONE (21:13)
[2024-04-08] MEDS: QUEtiapine FUMARATE 100 MG TABLET (FP) PO SCH (21:29)
[2024-04-08] MEDS: NICOTINE 21 MG/24 HOURS TOPICAL PATCH TD SCH (21:33)
[2024-04-08] MEDS: ACETAMINOPHEN 500 MG TABLET (FP) PO PRN (21:57)
[2024-04-08] MEDS: NICOTINE POLACRILEX 4 MG GUM BUC PRN (23:02)
[2024-04-09] MEDS: AMOX TR/POT CLAV 875MG/125MG TABLETS (FP) PO SCH (08:28)
[2024-04-09 09:13] LABS: BASO % 0.4 % (0-2.0); EOS % 1.9 % (0-4.5); HEMATOCRIT 33.2 % (35.4-49); HEMOGLOBIN 10.9 GM/dL (11.7-16.9); MCH 25.4 pg (25.7-33.7); MCHC 32.9 g/dl (32.0-35.9); MEAN CELL VOLUME 77.3 fl (80-96); MEAN PLT VOLUME 8.1 fl (7.5-11.1); MONO % 6.8 % (3.8-10.2); NEUT % 59.9 % (42.8-82.8); PLATELET COUNT 174 10^3/uL (134-434); RBC 4.29 M/mm3 (4.00-5.60); RDW 16.7 % (11.9-15.9); WHITE BLOOD COUNT 4.4 K/mm3 (4.0-10.0)
[2024-04-09 09:34] LABS: POTASSIUM 3.6 mmol/L (3.5-5.1)
[2024-04-09 09:39] LABS: ALBUMIN 3.3 g/dl (3.4-5.0); BLOOD UREA NITROGEN 11.1 mg/dL (7-18); CALCIUM 9.1 mg/dL (8.5-10.1); MAGNESIUM 1.8 mg/dL (1.8-2.4)
[2024-04-09 09:43] LABS: CREATININE 0.9 mg/dL (0.55-1.3)
[2024-04-09 09:44] LABS: BILIRUBIN,TOTAL 0.5 mg/dL (0.2-1)
[2024-04-09] MEDS: DOXYCYCLINE HYCLATE 100 MG CAPSULE PO SCH (10:07)
[2024-04-09 10:09] VITALS: BP 131/81; PULSE 57; TEMP 98.4
== END 2024-04-09 13:17 | disposition home or self-care (01) | DRG 139 ==
LOC: JER 06:55 → JERBED 19:36 → J7W 04-08 04:52
PROVIDERS: ADMIT Internal Medicine
DX: J18.9 Pneumonia, unspecified organism (principal); F11.20 Opioid dependence, uncomplicated; I10 Essential (primary) hypertension; D64.9 Anemia, unspecified; N40.0 Benign prostatic hyperplasia without lower urinary tract symptoms; I71.21 Aneurysm of the ascending aorta, without rupture; E83.42 Hypomagnesemia; F17.210 Nicotine dependence, cigarettes, uncomplicated; Z86.718 Personal history of other venous thrombosis and embolism
CPT/HCPCS: 0241U-QW; 36415; 71046-TC-FY; 71275-TC; 80053; 80307; 81003; 83036; 83735; 84484; 85025; 85027; 85610; 85730; 87070; 87077; 87086; 87205; 87899; 93005; 93010; 93970-TC; 99285-25; Q9967

== ENCOUNTER 2024-07-06 08:08 | Inpatient (IN) | payer OTHER ==
[2024-07-06 08:23] VITALS: BMI 19.8
[2024-07-06] MEDS ORDERED: DICYCLOMINE HCL 10 MG CAPSULE PO PRN (09:17)
[2024-07-06] MEDS ORDERED: ONDANSETRON *ODT* 4 MG TABLET SL PRN (09:17)
[2024-07-06] MEDS ORDERED: IBUPROFEN 600 MG TABLET (FP) PO PRN (09:17)
[2024-07-06] MEDS ORDERED: NALOXONE (NARCAN) HCL 4 MG/0.1 ML SPRAY NS PRN (09:17)
[2024-07-06] MEDS ORDERED: MAG HYDROX/AL HYDROX/SIMETH 30 ML UNIT-DOSE CUP PO PRN (09:17)
[2024-07-06] MEDS ORDERED: POLYETHYLENE GLYCOL (HEALTHYLAX) 3350 17 GM PACKET PO PRN (09:17)
[2024-07-06] MEDS ORDERED: hydrOXYzine PAMOATE 25 MG CAPSULE (FP) PO PRN (09:17)
[2024-07-06] MEDS ORDERED: IBUPROFEN 400 MG TABLET (FP) PO PRN (09:17)
[2024-07-06] MEDS ORDERED: BENZONATATE 200 MG CAPSULE PO PRN (09:17)
[2024-07-06] MEDS ORDERED: guaiFENesin 600 MG TABLET.ER (FP) PO PRN (09:17)
[2024-07-06] MEDS ORDERED: BENZOCAINE/MENTHOL (CHLORASEPTIC ) LOZENGE MM PRN (09:17)
[2024-07-06] MEDS ORDERED: PRENATAL VITAMINS W/ FOLIC ACID TABLET (FP) PO ONE (09:54)
[2024-07-06] MEDS: PRENATAL VITAMINS W/ FOLIC ACID TABLET (FP) PO SCH (09:55)
[2024-07-06] MEDS: ACETAMINOPHEN 325 MG TABLET (FP) PO PRN (20:39)
[2024-07-06] MEDS: THIAMINE 100 MG TABLET PO SCH (22:40)
[2024-07-06] MEDS: MELATONIN 5 MG TABLETS PO SCH (22:40)
[2024-07-06] MEDS: GABAPENTIN 400 MG CAPSULE PO SCH (22:40)
[2024-07-07] MEDS ORDERED: methaDONE HCL 40 MG DISPERSABLE TABLET PO SCH (06:00)
[2024-07-07] MEDS: TAMSULOSIN HCL 0.4 MG CAP PO SCH (07:36)
[2024-07-07] MEDS: cloNIDine HCL 0.1 MG TABLET PO SCH (09:15)
[2024-07-07] MEDS: PANTOPRAZOLE 20 MG TABLET PO SCH (09:16)
[2024-07-07] MEDS: MIRTAZAPINE 15 MG TABLET (FP) PO ONE (09:16)
[2024-07-07] MEDS ORDERED: DABIGATRAN ETEXILATE MESYLATE 150 MG CAPSULE PO SCH (10:00)
[2024-07-07] MEDS: DABIGATRAN ETEXILATE MESYLATE 150 MG CAPSULE PO SCH (10:10)
[2024-07-07 12:35] LABS: CHLORIDE 104 mmol/L (98-107); POTASSIUM 4.4 mmol/L (3.5-5.1); SODIUM 141 mmol/L (136-145)
[2024-07-07 12:42] LABS: CALCIUM 9.7 mg/dL (8.5-10.1)
[2024-07-07 12:43] LABS: ALBUMIN 3.6 g/dl (3.4-5.0); ANION GAP 10 mmol/L (4-13); BLOOD UREA NITROGEN 15.2 mg/dL (7-18); CO2 27 mmol/L (21-32); GLUCOSE,RANDOM 84 mg/dL (74-106)
[2024-07-07 12:46] LABS: SGOT/AST 13 U/L (15-37); SGPT/ALT 14 U/L (13-61)
[2024-07-07 12:47] LABS: BILIRUBIN,TOTAL 0.3 mg/dL (0.2-1); TOT PROT 8.2 g/dl (6.4-8.2)
[2024-07-07 12:49] LABS: ALK PHOS 99 U/L (45-117)
[2024-07-07 13:45] LABS: HEMATOCRIT 34.2 % (40.1-51.0); HEMOGLOBIN 10.8 g/dL (13.7-17.5); MCHC 31.6 g/dl (32.3-36.5); MEAN CELL VOLUME 83.4 fl (79.0-92.2); MEAN PLT VOLUME 10.9 fl (9.4-12.4); PLATELET COUNT 252 x10^3/uL (163-337); RDW 14.7 % (12.2-16.1)
[2024-07-07] MEDS ORDERED: GABAPENTIN 400 MG CAPSULE PO SCH (14:00)
[2024-07-07] MEDS: MIRTAZAPINE 15 MG TABLET (FP) PO SCH (21:24)
[2024-07-07] MEDS: QUEtiapine FUMARATE 100 MG TABLET (FP) PO SCH (21:24)
[2024-07-08] MEDS ORDERED: TAMSULOSIN HCL 0.4 MG CAP PO SCH (08:30)
[2024-07-08] MEDS: methaDONE HCL 10 MG TABLET PO ONE (09:51)
[2024-07-08] MEDS ORDERED: MIRTAZAPINE 15 MG TABLET (FP) ONE (21:05)
[2024-07-08] MEDS: MIRTAZAPINE 30 MG TABLET PO SCH (21:26)
[2024-07-09] MEDS: cloNIDine HCL 0.1 MG TABLET PO PRN (05:38)
[2024-07-09] MEDS: BISMUTH SUBSALICYLATE 524 MG/30 ML PO PRN (14:47)
[2024-07-09] MEDS ORDERED: MIRTAZAPINE 15 MG TABLET (FP) ONE ×2 (21:28→21:44)
[2024-07-10] MEDS: methaDONE HCL 10 MG TABLET PO ONE (09:15)
[2024-07-10] MEDS: LOPERAMIDE HCL 2 MG CAPSULE PO PRN (09:18)
[2024-07-10] MEDS: cloNIDine HCL 0.1 MG TABLET PO PRN (14:16)
[2024-07-10] MEDS ORDERED: MIRTAZAPINE 15 MG TABLET (FP) ONE (21:10)
[2024-07-11] MEDS: methaDONE HCL 10 MG TABLET PO ONE (10:15)
[2024-07-11] MEDS ORDERED: MIRTAZAPINE 15 MG TABLET (FP) ONE (20:57)
[2024-07-12] MEDS: methaDONE HCL 10 MG TABLET PO ONE (10:07)
[2024-07-12 13:04] VITALS: BP 127/76; PULSE 77; RESP 18; TEMP 98.1
== END 2024-07-12 14:07 | disposition other institution (70) | DRG 773 ==
LOC: YASAS 08:08 → Y3N 09:32
PROVIDERS: ADMIT Psychiatry & Neurology Pain Medicine; ATTEND Allergy & Immunology
PROC: HZ2ZZZZ Detoxification Services for Substance Abuse Treatment (ICD-10-PCS; principal; 2024-07-06)
DX: F11.23 Opioid dependence with withdrawal (principal); F14.20 Cocaine dependence, uncomplicated; F17.210 Nicotine dependence, cigarettes, uncomplicated; F32.A Depression, unspecified; F31.9 Bipolar disorder, unspecified; K21.9 Gastro-esophageal reflux disease without esophagitis; M54.50 Low back pain, unspecified; G89.29 Other chronic pain; N40.0 Benign prostatic hyperplasia without lower urinary tract symptoms; Z86.718 Personal history of other venous thrombosis and embolism
CPT/HCPCS: 36415; 80053; 80305; 80307; 85027; 86780; 87811; 93005; 93010

== ENCOUNTER 2024-11-24 07:36 | Inpatient (IN) | payer OTHER ==
[2024-11-24 08:00] VITALS: BMI 21.2
[2024-11-24] MEDS ORDERED: BENZOCAINE/MENTHOL (CHLORASEPTIC ) LOZENGE MM PRN (08:36)
[2024-11-24] MEDS ORDERED: ONDANSETRON *ODT* 4 MG TABLET SL PRN (08:36)
[2024-11-24] MEDS ORDERED: NALOXONE (NARCAN) HCL 4 MG/0.1 ML SPRAY NS PRN (08:36)
[2024-11-24] MEDS ORDERED: hydrOXYzine PAMOATE 25 MG CAPSULE (FP) PO PRN (08:36)
[2024-11-24] MEDS ORDERED: guaiFENesin 600 MG TABLET.ER (FP) PO PRN (08:36)
[2024-11-24] MEDS ORDERED: BISMUTH SUBSALICYLATE 524 MG/30 ML PO PRN (08:36)
[2024-11-24] MEDS ORDERED: DICYCLOMINE HCL 10 MG CAPSULE PO PRN (08:36)
[2024-11-24] MEDS ORDERED: POLYETHYLENE GLYCOL (HEALTHYLAX) 3350 17 GM PACKET PO PRN (08:36)
[2024-11-24] MEDS ORDERED: IBUPROFEN 400 MG TABLET (FP) PO PRN (08:36)
[2024-11-24] MEDS ORDERED: BENZONATATE 200 MG CAPSULE PO PRN (08:36)
[2024-11-24] MEDS ORDERED: MAGNESIUM HYDROX 2400MG/30ML ORAL SUSPENSION 30 ML CUP PO PRN (08:36)
[2024-11-24] MEDS ORDERED: MAG HYDROX/AL HYDROX/SIMETH 30 ML UNIT-DOSE CUP PO PRN (08:36)
[2024-11-24] MEDS ORDERED: LOPERAMIDE HCL 2 MG CAPSULE PO PRN (08:36)
[2024-11-24] MEDS ORDERED: ALBUTEROL SO4 HFA INHALER IH PRN (08:39)
[2024-11-24] MEDS: NICOTINE 21 MG/24 HOURS TOPICAL PATCH TD SCH (11:59)
[2024-11-24] MEDS: BACLOFEN 10 MG TABLET (FP) PO SCH (11:59)
[2024-11-24] MEDS: DABIGATRAN ETEXILATE MESYLATE 150 MG CAPSULE PO SCH (12:00)
[2024-11-24] MEDS: PRENATAL VITAMINS W/ FOLIC ACID TABLET (FP) PO SCH (12:06)
[2024-11-24] MEDS: PANTOPRAZOLE 20 MG TABLET PO SCH (12:06)
[2024-11-24 12:22] LABS: HIV INTERPRETATION NEGATIVE (NEGATIVE)
[2024-11-24] MEDS: FERROUS SO4 325 MG TABLET (FP) PO SCH (13:13)
[2024-11-24] MEDS: GABAPENTIN 400 MG CAPSULE PO SCH (13:13)
[2024-11-24 13:26] LABS: HCV DIAGNOSTIC IN-HOUSE W/RFLX REACTIVE (NONREACTIVE)
[2024-11-24] MEDS: MIRTAZAPINE 15 MG TABLET (FP) PO SCH (21:45)
[2024-11-24] MEDS: THIAMINE 100 MG TABLET PO SCH (21:47)
[2024-11-24] MEDS: MELATONIN 5 MG TABLETS PO SCH (23:03)
[2024-11-25] MEDS: TAMSULOSIN HCL 0.4 MG CAP PO SCH (08:02)
[2024-11-25 11:35] LABS: MEAN CELL VOLUME 87.7 fl (79.0-92.2)
[2024-11-25 11:37] LABS: IMMATURE PLATELET FRACTION # 8.70 x10^3/uL; MCHC 31.2 g/dl (32.3-36.5); RDW 15.0 % (12.2-16.1)
[2024-11-25 12:15] LABS: GLUCOSE,RANDOM 89.0 mg/dL (74-106); TOT PROT 8.3 g/dl (6.4-8.2)
[2024-11-25 12:16] LABS: CO2 24.0 mmol/L (21-32)
[2024-11-25 12:18] LABS: ALK PHOS 96.0 U/L (40-150)
[2024-11-25 12:20] LABS: SGOT/AST 35.0 U/L (5-34); SGPT/ALT 11.0 U/L (0-55)
[2024-11-25 12:21] LABS: CREATININE 1.0 mg/dL (0.55-1.3)
[2024-11-25] MEDS: QUEtiapine FUMARATE 100 MG TABLET (FP) PO SCH (22:11)
[2024-11-25] MEDS: ACETAMINOPHEN 325 MG TABLET (FP) PO PRN (22:14)
[2024-11-28] MEDS: NICOTINE POLACRILEX 2 MG GUM BUC PRN (09:20)
[2024-11-28] MEDS: IBUPROFEN 600 MG TABLET (FP) PO PRN (09:21)
[2024-11-29 08:47] VITALS: RESP 16
[2024-11-29 12:52] VITALS: BP 101/65; PULSE 66; TEMP 98.7
== END 2024-11-29 13:06 | disposition other institution (70) | DRG 773 ==
LOC: YASAS 07:36 → SUATTDRO 07:36 → Y6N 10:27
PROVIDERS: ADMIT Family Medicine; ATTEND Counselor Addiction (Substance Use Disorder)
PROC: HZ2ZZZZ Detoxification Services for Substance Abuse Treatment (ICD-10-PCS; principal; 2024-11-24)
DX: F11.23 Opioid dependence with withdrawal (principal); F14.20 Cocaine dependence, uncomplicated; F17.210 Nicotine dependence, cigarettes, uncomplicated; J45.909 Unspecified asthma, uncomplicated; F43.10 Post-traumatic stress disorder, unspecified; M48.00 Spinal stenosis, site unspecified; Z59.00 Homelessness unspecified; N40.0 Benign prostatic hyperplasia without lower urinary tract symptoms; D50.9 Iron deficiency anemia, unspecified
CPT/HCPCS: 36415; 80053; 80305; 80307; 85027; 86780; 86803; 87389; 87522; 87811; 93005; 93010; J0475

== ENCOUNTER 2024-12-12 06:55 | Inpatient (IN) | payer OTHER ==
[2024-12-12] MEDS ORDERED: ACETAMINOPHEN INJECTION 100 ML ONE (08:07)
[2024-12-12 08:09] LABS: MCHC 30.8 g/dl (32.3-36.5); MEAN CELL VOLUME 88.3 fl (79.0-92.2); MEAN PLT VOLUME 10.4 fl (9.4-12.4); RDW 14.8 % (12.2-16.1)
[2024-12-12] MEDS: SODIUM CHLORIDE 0.9% 500 ML INFUS.BAG IV ONE ×2 (08:14→11:42)
[2024-12-12] MEDS: ACETAMINOPHEN 1000 MG/100 ML BAG IVPB ONE (08:14)
[2024-12-12 08:52] LABS: GLUCOSE,RANDOM 106.0 mg/dL (74-106); TOT PROT 8.7 g/dl (6.4-8.2)
[2024-12-12 08:54] LABS: CO2 20.0 mmol/L (21-32)
[2024-12-12 08:55] LABS: ALK PHOS 98.0 U/L (40-150)
[2024-12-12 08:58] LABS: CREATININE 2.68 mg/dL (0.55-1.3); SGOT/AST 426.0 U/L (5-34); SGPT/ALT 142.0 U/L (0-55)
[2024-12-12] MEDS: LACTATED RINGERS SOLUTION 1000 ML INFUS.BAG IV ONE (10:45)
[2024-12-12] MEDS ORDERED: CEFTRIAXONE 1 GM/50 ML BAG ONE (11:34)
[2024-12-12] MEDS: CEFTRIAXONE 1 GM in DEXTROSE 5%-WATER - 50 ML IVPB ONE (11:38)
[2024-12-12] MEDS ORDERED: ALBUTEROL SO4 2.5/IPRATROPIUM 0.5 INH SOL 3 ML VIAL.NEB. NEB PRN (12:32)
[2024-12-12] MEDS ORDERED: DOXYCYCLINE HYCLATE 100 MG VIAL ONE (12:37)
[2024-12-12] MEDS ORDERED: DEXTROSE 5%-WATER 100 ML IVPB ONE (12:37)
[2024-12-12] MEDS: DOXYCYCLINE INJECTION 100 MG in DEXTROSE 5%-WATER 100 ML IVPB ONE (12:39)
[2024-12-12 12:49] LABS: HIV INTERPRETATION NEGATIVE (NEGATIVE)
[2024-12-12] MEDS: GABAPENTIN 400 MG CAPSULE PO SCH (14:33)
[2024-12-12] MEDS: LACTATED RINGERS SOLUTION 1,000 ML/1,000 ML INFUS.BAG IV SCH (14:35)
[2024-12-12 14:42] LABS: HCV DIAGNOSTIC IN-HOUSE W/RFLX REACTIVE (NONREACTIVE)
[2024-12-12 18:39] VITALS: BMI 24.5
[2024-12-12] MEDS: MIRTAZAPINE 15 MG TABLET (FP) PO SCH (21:12)
[2024-12-12] MEDS ORDERED: DABIGATRAN ETEXILATE MESYLATE 150 MG CAPSULE PO SCH (22:00)
[2024-12-13 08:03] LABS: ABSOLUTE IMMATURE GRANULOCYTES 0.01 x10^3/uL (0.0-0.031); BASOPHILS # 0.01 x10^3/uL (0.01-0.08); EOSINOPHIL % 3.1 % (0.8-7.0); EOSINOPHILS # 0.09 x10^3/uL (0.04-0.54); MCHC 31.2 g/dl (32.3-36.5); MEAN CELL VOLUME 88.1 fl (79.0-92.2); MEAN PLT VOLUME 10.3 fl (9.4-12.4); MONOCYTE # 0.27 x10^3/uL (0.30-0.82); MONOCYTE % 9.4 % (5.3-12.2); RDW 14.9 % (12.2-16.1)
[2024-12-13 08:38] LABS: GLUCOSE,RANDOM 67.0 mg/dL (74-106); TOT PROT 6.4 g/dl (6.4-8.2)
[2024-12-13 08:39] LABS: CO2 24.0 mmol/L (21-32)
[2024-12-13 08:41] LABS: ALK PHOS 79.0 U/L (40-150)
[2024-12-13 08:43] LABS: SGOT/AST 218.0 U/L (5-34); SGPT/ALT 96.0 U/L (0-55)
[2024-12-13 08:44] LABS: CREATININE 1.33 mg/dL (0.55-1.3)
[2024-12-13] MEDS: TAMSULOSIN HCL 0.4 MG CAP PO SCH (08:44)
[2024-12-13] MEDS: ACETAMINOPHEN 1000 MG/100 ML BAG IVPB ONE (08:47)
[2024-12-13] MEDS: LACTATED RINGERS SOLUTION 1,000 ML/1,000 ML INFUS.BAG IV SCH (10:19)
[2024-12-13] MEDS: FERROUS SO4 325 MG TABLET (FP) PO SCH (10:20)
[2024-12-13] MEDS: PANTOPRAZOLE 20 MG TABLET PO SCH (10:20)
[2024-12-13] MEDS: FUROSEMIDE 40 MG/4 ML INJECTABLE VIAL IVPUSH ONE (10:21)
[2024-12-13 16:13] LABS: ABSOLUTE IMMATURE GRANULOCYTES 0.01 x10^3/uL (0.0-0.031); BASOPHILS # 0.00 x10^3/uL (0.01-0.08); EOSINOPHIL % 2.8 % (0.8-7.0); EOSINOPHILS # 0.08 x10^3/uL (0.04-0.54); MCHC 31.6 g/dl (32.3-36.5); MEAN CELL VOLUME 88.2 fl (79.0-92.2); MEAN PLT VOLUME 10.5 fl (9.4-12.4); MONOCYTE # 0.28 x10^3/uL (0.30-0.82); MONOCYTE % 9.9 % (5.3-12.2); RDW 14.9 % (12.2-16.1)
[2024-12-13 18:21] LABS: URINE APPEARANCE CLEAR; URINE BILIRUBIN NEGATIVE (NEGATIVE); URINE COLOR YELLOW; URINE GLUCOSE (UA) NEGATIVE (NEGATIVE); URINE KETONE NEGATIVE (NEGATIVE); URINE LEUK ESTERASE NEGATIVE (NEGATIVE); URINE NITRITE NEGATIVE (NEGATIVE); URINE PROTEIN NEGATIVE (NEGATIVE); URINE UROBILINOGEN 0.2 mg/dL (0.2-1.0)
[2024-12-13] MEDS: POLYETHYLENE GLYCOL (HEALTHYLAX) 3350 17 GM PACKET PO SCH (19:17)
[2024-12-13] MEDS: DOCUSATE SODIUM 100 MG CAPSULE (FP) PO SCH (19:18)
[2024-12-13] MEDS: ACETAMINOPHEN 500 MG TABLET (FP) PO PRN (21:31)
[2024-12-14 08:33] LABS: MCHC 32.0 g/dl (32.3-36.5); MEAN CELL VOLUME 87.4 fl (79.0-92.2); MEAN PLT VOLUME 10.5 fl (9.4-12.4); RDW 14.2 % (12.2-16.1)
[2024-12-14 08:41] LABS: GLUCOSE,RANDOM 73.0 mg/dL (74-106)
[2024-12-14 08:42] LABS: TOT PROT 6.7 g/dl (6.4-8.2)
[2024-12-14 08:43] LABS: CO2 27.0 mmol/L (21-32)
[2024-12-14 08:44] LABS: ALK PHOS 92.0 U/L (40-150)
[2024-12-14 08:47] LABS: CREATININE 1.02 mg/dL (0.55-1.3); SGOT/AST 152.0 U/L (5-34); SGPT/ALT 87.0 U/L (0-55)
[2024-12-14 15:37] LABS: MCHC 32.7 g/dl (32.3-36.5); MEAN CELL VOLUME 86.6 fl (79.0-92.2); MEAN PLT VOLUME 9.8 fl (9.4-12.4); RDW 14.2 % (12.2-16.1)
[2024-12-14 23:29] VITALS: BP 149/94; PULSE 70; RESP 22; TEMP 98.2
== END 2024-12-15 06:40 | disposition home or self-care (01) | DRG 351 ==
LOC: JER 06:55 → JERBED 11:21 → J6W TELE 13:15
PROVIDERS: ADMIT Student in an Organized Health Care Education/Training Program; ATTEND Nurse Practitioner
DX: T79.6XXA Traumatic ischemia of muscle, initial encounter (principal); N17.9 Acute kidney failure, unspecified; F11.20 Opioid dependence, uncomplicated; E83.41 Hypermagnesemia; R74.01 Elevation of levels of liver transaminase levels; N40.0 Benign prostatic hyperplasia without lower urinary tract symptoms; K21.9 Gastro-esophageal reflux disease without esophagitis; D64.9 Anemia, unspecified; F17.210 Nicotine dependence, cigarettes, uncomplicated; G43.909 Migraine, unspecified, not intractable, without status migrainosus; J45.909 Unspecified asthma, uncomplicated; J98.11 Atelectasis; M48.00 Spinal stenosis, site unspecified; W19.XXXA Unspecified fall, initial encounter; Y93.9 Activity, unspecified; Y92.89 Other specified places as the place of occurrence of the external cause; Y99.9 Unspecified external cause status
CPT/HCPCS: 36415; 70450-TC; 71045-TC-FY; 71250-TC; 74177-TC; 76775-TC; 80053; 80307; 81003; 82550; 83036; 83735; 84100; 85025; 85027; 86803; 87389; 87522; 93005; 93010; 94010; 97162-GP; 99285-25